=== PATIENT | male | born 1935 | race Caucasian/White ===

== ENCOUNTER 2018-05-13 13:15 | Inpatient (IN) | payer OTHER, SELFPAY ==
[2018-05-13] MEDS ORDERED: ONDANSETRON 4 MG/2 ML VIAL ONE (13:42)
[2018-05-13] MEDS ORDERED: NA CHLORIDE 0.9% 500 ML ONE (13:42)
[2018-05-13 13:45] LABS: Absolute Lymphocytes (CBC) 0.7 K/uL (0.7-4.9); Absolute Monocytes 1.6 K/uL (0.1-1.3); Absolute Neutrophil 13.5 K/uL (1.8-8.0); Basophils % 0.2 % (0-1.3); Hematocrit 43.9 % (39.6-49.0); Lymphocytes % 4.6 % (15.3-44.8); MCH 28.6 pg (27.0-35.0); MCV 86.2 fL (80-100); MPV 9.2 fL (7.6-11.3); Monocytes % 9.9 % (3.3-12.3); RBC Red Blood Cell Count 5.09 M/uL (4.33-5.43)
[2018-05-13 13:55] LABS: Potassium 4.4 mmol/L (3.5-5.1)
[2018-05-13 13:56] LABS: Albumin 3.1 g/dL (3.4-5.0); Bilirubin Direct 0.3 mg/dL (0-0.2); Bilirubin Total 0.9 mg/dL (0.2-1.0)
[2018-05-13 14:19] LABS: Blood Morphology Comment NOT SEEN (NOT SEEN); Platelet Estimate ADEQ; Urine White Blood Cell Casts OK
--- NOTE | 2018-05-13 15:48 | RAD REPORT ---
EXAM DESCRIPTION: CT - Abdomen Pelvis Wo Contrast - 05/13/2018 3:40 pm CLINICAL HISTORY: Abdominal pain. Abd pain;Abdominal distention COMPARISON: No comparisons TECHNIQUE: CT imaging of the abdomen and pelvis was performed without contrast. Solid organ, bowel a nd vascular assessment is limited due to lack of IV and oral contrast. All CT scans are performed using dose optimization technique as appropriate and may include automated exposure control or mA/KV adjustment according to patient size. FINDINGS: Emphysematous changes are present in the lung bases with linear atelectasis present.Small hiatal hernia is noted with gastroesophageal reflux suspected. The gallbladder appears distended with a stone noted in the gallbladder dependently and in the cystic duct.Mild pericholecystic inflammatory changes are noted. The liver, spleen, adrenal glands and kidn eys show no acute process for limited noncontrast imaging. Mild pancreatic atrophy. No bowel obstruction, free air, free fluid or abscess. Moderate fecal retention is seen in the right aspect of the colon. The appendix is normal. Scattered colonic diverticulosis. Fat containing inguina l hernias are present, greater on the right. Aortic atherosclerosis. The osseous structures are within normal limits. IMPRESSION: Acute cholecystitis is suspected. This may be confirmed utilizing gallbladder sonography . A limited non-contrast examination was performed as detailed.
[2018-05-13] MEDS ORDERED: MEPERIDINE HCL 25 MG/0.5 ML ONE ×2 (16:11→16:44)
[2018-05-13] MEDS ORDERED: CEFTRIAXONE/SWI 1gm 1 GM/10 ML SYR ONE (16:12)
[2018-05-13] MEDS ORDERED: D5 0.45 NS 1,000 ML IV ONE (16:12)
[2018-05-13] MEDS ORDERED: METRONIDAZOLE 500mg IVPB 500 MG/100 ML BAG IV ONE (16:12)
--- NOTE | 2018-05-13 16:25 | RAD REPORT ---
EXAM DESCRIPTION: US - Abdomen Exam Limited - 05/13/2018 4:18 pm CLINICAL HISTORY: Abdominal pain. COMPARISON: May 13, 2018 cat scan FINDINGS: The gallbladder is distended. Sludge and a couple of gallstones are seen. The gallbladder wall measures 6 millimeters The biliary tree is normal caliber. IMPRESSION: Cholelithiasis, sludge and thickened gallbladder wall. Cholecystitis is suspected.
--- NOTE | 2018-05-13 16:41 | EDPHYS ---
Physician Documentation [facility] Name: Brodie Escobar Age: 82 yrs Sex: Male : 1935 Arrival Date: 05/13/2018 Time: 13:16 Bed 8 Private MD: ED Physician Basilio Keith HPI: 05/13 13:46 This 82 yrs old Male presents to ER via EMS with complaints of abd pain. rn 13:46 The patient presents with abdominal pain abdominal distention. Onset: The rn symptoms/episode began/occurred 2 day(s) ago. The symptoms do not radiate. Associated signs and symptoms: Pertinent positives: constipation, nausea, Pertinent negatives: blood in stools, fever, shortness of breath, testicular pain, vomiting blood. The symptoms are described as achy. Modifying factors: The symptoms are alleviated by nothing, the symptoms are aggravated by touching the area. Severity of pain: At its worst the pain was moderate in the emergency department the pain is unchanged. The patient has not experienced similar symptoms in the past. Reports abd pain and distension for 2 days, assoc with constipation and nausea, reports feels like "stopped up from both ends". NO hx of abd surgeries. . Historical: - Allergies: 13:18 No Known Allergies; aa5 - Home Meds: 13:30 losartan 25 mg oral tab 1 tab once daily [Active]; metoprolol tartrate 25 mg Oral tab 2 aa5 times per day [Active]; omeprazole 20 mg Oral cpDR once daily [Active]; oxybutynin chloride 5 mg Oral tab 2 times per day for Bladder Hyperactivity [Active]; - PMHx: 13:18 Hypertension; acid reflux; aa5 13:30 Hyperlipidemia; Coronary arteriosclerosis; Chronic Kidney Disease Stage 3; GERD; aa5 Prostate problems; Overactive bladder; - PSHx: 13:18 left knee; "heart surgery"; aa5 13:30 Aortocoronary Bypass; aa5 - Immunization history:: Pneumococcal vaccine is up to date, Flu vaccine is up to date. - Social history:: Smoking status: Patient/guardian denies using tobacco. - Ebola Screening: : No symptoms or risks identified at this time. - Family history:: not pertinent. - Hospitalizations: : No recent hospitalization is reported. ROS: 13:46 Constitutional: Negative for fever, chills, and weight loss, Eyes: Negative for injury, rn pain, redness, and discharge, Neck: Negative for injury, pain, and swelling, Cardiovascular: Negative for chest pain, palpitations, and edema, Respiratory: Negative for shortness of breath, cough, wheezing, and pleuritic chest pain, Abdomen/GI: + abd pain and nausea, + constipation MS/Extremity: Negative for injury and deformity, Skin: Negative for injury, rash, and discoloration, Neuro: Negative for headache, weakness, numbness, tingling, and seizure. Exam: 13:46 Constitutional: This is a well developed, well nourished patient who is awake, alert rn Eyes: Pupils equal round and reactive to light, extra-ocular motions intact. ENT: dry mm Cardiovascular: Regular rate, no murmur, No pulse deficits. Respiratory: Lungs have equal breath sounds bilaterally, clear to auscultation. No increased work of breathing, no retractions or nasal flaring. Abdomen/GI: firm, + mild distension and abd tenderness MS/ Extremity: Pulses equal, no cyanosis. Neurovascular intact. Full, normal range of motion. Equal circumference. Neuro: Awake and alert, GCS 15, oriented to person, place, time, and situation. Cranial nerves II-XII grossly intact. Motor strength 5/5 in all extremities. Sensory grossly intact. Vital Signs: 13:18 BP 203 / 95; Pulse 86; Resp 16 S; Temp 97.8(O); Pulse Ox 99% on R/A; Weight 83.91 kg aa5 (R); Height 5 ft. 5 in. (165.10 cm) (R); Pain 10/10; 13:55 BP 184 / 101; Pulse 94; Resp 22; Pulse Ox 92% on R/A; aa5 13:57 Pulse Ox 98% on 2 lpm NC; aa5 14:25 BP 181 / 89; Pulse 88; Resp 18 S; Pulse Ox 98% on 2 lpm NC; aa5 15:00 BP 198 / 86; Pulse 92; Resp 18 S; Pulse Ox 98% on 2 lpm NC; aa5 15:45 BP 204 / 97; Pulse 91; Resp 16; Temp 98.0(TE); Pulse Ox 98% on 2 lpm NC; aa5 16:30 BP 191 / 102; Pulse 90; Resp 18 S; Pulse Ox 97% on 2 lpm NC; aa5 17:00 BP 196 / 102; Pulse 99; Resp 16 S; Pulse Ox 98% on 2 lpm NC; aa5 18:00 BP 197 / 106; Pulse 94; Resp 14 S; Temp 97.8(TE); Pulse Ox 98% on 2 lpm NC; aa5 19:00 BP 188 / 102; Pulse 86; Resp 16 S; Pulse Ox 97% on 2 lpm NC; Pain 0/10; aa5 20:00 BP 171 / 96; Pulse 83; Resp 18 S; Temp 98.3(O); Pulse Ox 98% on 2 lpm NC; cc3 13:18 Body Mass Index 30.79 (83.91 kg, 165.10 cm) aa5 14:25 Dr. Keith was notified that BP remains high, no further orders received. aa5 MDM: 13:16 Patient medically screened. rn 16:36 Differential diagnosis: bowel obstruction, cholecystitis, Cholelithiasis, gastritis, rn gastroesophageal reflux disease, non-specific abd pain, pancreatitis, Peptic Ulcer Disease. Data reviewed: vital signs, nurses notes, lab test result(s), radiologic studies, CT scan, ultrasound, and as a result, I will admit patient. Counseling: I had a detailed discussion with the patient and/or guardian regarding: the historical points, exam findings, and any diagnostic results supporting the discharge/admit diagnosis, lab results, radiology results, the need for further work-up and treatment in the hospital. Admission orders: after a detailed discussion of the patient's condition and case, the admit orders are written by me. ED course: Pt with acute cholecystitis, consulted with Dr. Coffman \\T\\ [id number], admitted to Dr. Mclean. Abx given, NPO, fluids, pain meds. . 05/13 13:17 Order name: Basic Metabolic Panel; Complete Time: 15:52 rn 05/13 13:17 Order name: CBC with Diff; Complete Time: 15:52 rn 05/13 13:17 Order name: Hepatic Function; Complete Time: 15:52 rn 05/13 13:17 Order name: Lipase; Complete Time: 15:52 rn 05/13 13:51 Order name: CBC Smear Scan; Complete Time: 15:52 EDMS 05/13 15:22 Order name: Abdomen ; Complete Time: 15:52 EDMS 05/13 15:53 Order name: US Abdomen Limited; Complete Time: 16:30 rn 05/13 13:17 Order name: IV Saline Lock; Complete Time: 13:41 rn 05/13 13:17 Order name: Labs collected and sent; Complete Time: 13:41 rn Administered Medications: 13:34 Drug: NS 0.9% 500 ml Route: IV; Rate: bolus; Site: right antecubital; aa5 14:15 Follow up: IV Status: Completed infusion aa5 13:34 Drug: Zofran 4 mg Route: IVP; Site: right antecubital; aa5 13:40 Follow up: Response: No adverse reaction aa5 13:36 Drug: Demerol 25 mg Route: IVP; Site: right antecubital; aa5 13:40 Follow up: Response: No adverse reaction aa5 16:09 Drug: Rocephin - (cefTRIAXone) 1 grams {Note: Given slow IVP per pharmacy protocol at aa5 this time. .} Route: IVPB; Infused Over: 30 mins; Site: right antecubital; 16:20 Follow up: Response: No adverse reaction aa5 16:09 Drug: Demerol 25 mg Route: IVP; Site: right antecubital; aa5 16:15 Follow up: Response: No adverse reaction aa5 16:32 Drug: Flagyl 500 mg Volume: 100 ml; Route: IVPB; Rate: 200 ml/hr; Infused Over: 30 aa5 mins; Site: right antecubital; 17:02 Follow up: Response: No adverse reaction; IV Status: Completed infusion aa5 16:32 Drug: D5-1/2 NS with KCl 20 mEq/L 1000 ml Route: IV; Rate: 100 ml/hr; Site: right aa5 antecubital; 16:34 Drug: Demerol 25 mg Route: IVP; Site: right antecubital; aa5 16:40 Follow up: Response: No adverse reaction aa5 16:34 Drug: Metoprolol TARTRATE (Lopressor) 50 mg Route: PO; aa5 17:00 Follow up: Response: No adverse reaction aa5 18:45 Drug: cloNIDine 0.2 mg Route: PO; aa5 20:00 Follow up: Response: No adverse reaction; Blood pressure is lowered cc3 Disposition: 05/13/18 16:40 Hospitalization ordered by Katheryn Mclean for Inpatient Admission. Preliminary diagnosis are Cholecystitis, Constipation, unspecified, Chronic kidney disease (CKD). - Bed requested for Telemetry/MedSurg (Inpatient). - Status is Inpatient Admission. aa1 - Condition is Stable. - Problem is new. - Symptoms have improved. UTI on Admission? No Signatures: Dispatcher [employer] EDFL Niurka Wilson RN RN aa1 Basilio Keith MD MD rn Calderon, Audri, RN RN aa5 Lamar Waters Liberty Mena cc3 Corrections: (The following items were deleted from the chart) 15:22 13:18 Abdomen Pelvis W Con+CT.RAD.BRZ ordered. EDFL EDFL 18:13 16:40 Hospitalization Ordered by Katheryn Mclean MD for Inpatient Admission. Preliminary gm diagnosis is Cholecystitis; Constipation, unspecified; Chronic kidney disease (CKD). Bed requested for Telemetry/MedSurg (Inpatient). Status is Inpatient Admission. Condition is Stable. Problem is new. Symptoms have improved. UTI on Admission? No. rn 20:54 18:13 05/13/2018 16:40 Hospitalization Ordered by Katheryn Mclean MD for Inpatient aa1 Admission. Preliminary diagnosis is Cholecystitis; Constipation, unspecified; Chronic kidney disease (CKD). Bed requested for Telemetry/MedSurg (Inpatient). Status is Inpatient Admission. Condition is Stable. Problem is new. Symptoms have improved. UTI on Admission? No. gm
--- NOTE | 2018-05-13 16:41 | ER ---
Nurse's Notes [facility] Name: Brodie Escobar Age: 82 yrs Sex: Male : 1935 Arrival Date: 05/13/2018 Time: 13:16 Bed 8 Private MD: Diagnosis: Cholecystitis;Constipation, unspecified;Chronic kidney disease (CKD) Presentation: 05/13 13:18 Transition of care: patient was not received from another setting of care. Onset of aa5 symptoms was April 2018. Risk Assessment: Do you want to hurt yourself or someone else? Patient reports no desire to harm self or others. Initial Sepsis Screen: Does the patient meet any 2 criteria? No. Patient's initial sepsis screen is negative. Does the patient have a suspected source of infection? No. Patient's initial sepsis screen is negative. Care prior to arrival: None. 13:18 Acuity: JENNIFER 3 aa5 13:18 Method Of Arrival: EMS: [facility] aa5 13:18 Presenting complaint: Patient states: generalized abd pain that began 2 days ago. Pt aa5 reports last normal BM was approximately 3-4 days ago, pt reports very small BM yesterday. Reports nausea, denies vomiting. Historical: - Allergies: 13:18 No Known Allergies; aa5 - Home Meds: 13:30 losartan 25 mg oral tab 1 tab once daily [Active]; metoprolol tartrate 25 mg Oral tab 2 aa5 times per day [Active]; omeprazole 20 mg Oral cpDR once daily [Active]; oxybutynin chloride 5 mg Oral tab 2 times per day for Bladder Hyperactivity [Active]; - PMHx: 13:18 Hypertension; acid reflux; aa5 13:30 Hyperlipidemia; Coronary arteriosclerosis; Chronic Kidney Disease Stage 3; GERD; aa5 Prostate problems; Overactive bladder; - PSHx: 13:18 left knee; "heart surgery"; aa5 13:30 Aortocoronary Bypass; aa5 - Immunization history:: Pneumococcal vaccine is up to date, Flu vaccine is up to date. - Social history:: Smoking status: Patient/guardian denies using tobacco. - Ebola Screening: : No symptoms or risks identified at this time. - Family history:: not pertinent. - Hospitalizations: : No recent hospitalization is reported. Screenin:20 Abuse screen: Denies threats or abuse. Nutritional screening: No deficits noted. aa5 Tuberculosis screening: No symptoms or risk factors identified. Fall Risk None identified. Assessment: 13:20 General: Appears uncomfortable, Behavior is calm, cooperative. Pain: Complains of pain aa5 in right upper quadrant, left upper quadrant, right lower quadrant and left lower quadrant Pain does not radiate. Pain currently is 10 out of 10 on a pain scale. Quality of pain is described as crampy, Pain began 2-3 days ago. Is continuous. Neuro: Level of Consciousness is awake, alert, obeys commands, Oriented to person, place, time, situation. Cardiovascular: Heart tones S1 S2 present Rhythm is regular. Respiratory: Airway is patent Respiratory effort is even, unlabored, Respiratory pattern is regular, symmetrical, Breath sounds are clear bilaterally. GI: Abdomen is round distended, Bowel sounds present X 4 quads. Abd is soft and non tender X 4 quads. Reports constipation, nausea, Patient currently denies vomiting. : No signs and/or symptoms were reported regarding the genitourinary system. EENT: No signs and/or symptoms were reported regarding the EENT system. Derm: Skin is pink, warm \\T\\ dry. Musculoskeletal: Range of motion: intact in all extremities. 14:00 Reassessment: Patient is alert, oriented x 3, equal unlabored respirations, skin aa5 warm/dry/pink. Patient states feeling better. Pt completed CT oral contrast, CT notified. . Pain: Pain currently is 7 out of 10 on a pain scale. 15:07 Reassessment: Patient and/or family updated on plan of care and expected duration. Pain aa5 level reassessed. Patient is alert, oriented x 3, equal unlabored respirations, skin warm/dry/pink. Provided urinal for pt. Pt sitting up in bed. Appears comfortable. Awaiting CT scan. . Pain: Pain currently is 6 out of 10 on a pain scale. 16:10 Reassessment: Patient is alert, oriented x 3, equal unlabored respirations, skin aa5 warm/dry/pink. US at bedside . 16:10 Pain: Pain currently is 10 out of 10 on a pain scale. aa5 16:33 Reassessment: Patient and/or family updated on plan of care and expected duration. Pain aa5 level reassessed. Patient is alert, oriented x 3, equal unlabored respirations, skin warm/dry/pink. Pt requesting more pain medication, Dr. Keith notified. . Pain: Pain currently is 9 out of 10 on a pain scale. 16:54 Reassessment: Patient is alert, oriented x 3, equal unlabored respirations, skin aa5 warm/dry/pink. Patient states feeling better. Pain: Pain currently is 6 out of 10 on a pain scale. 17:30 Reassessment: Pt resting in bed with eyes closed, respirations even and unlabored, skin aa5 is pink/warm/dry. . 18:11 Reassessment: Pt resting in bed with eyes closed, respirations even and unlabored, skin aa5 is pink/warm/dry. . 18:16 Reassessment: Dr. Coffman (sugeon) and Dr. Mclean (Hospitalist) at bedside . aa5 19:15 Reassessment: Patient appears in no apparent distress at this time. Patient and/or cc3 family updated on plan of care and expected duration. Pain level reassessed. Patient is alert, oriented x 3, equal unlabored respirations, skin warm/dry/pink. Received this male patient from morning shift BONNIE Jain as a case of abdominal pain for admission to room 223 after shift change. With IV cannula gauge 20 at the right ACV with ongoing KCl infusion at 100 mL/hr infusing well. 20:00 Reassessment: Patient appears in no apparent distress at this time. Patient and/or cc3 family updated on plan of care and expected duration. Pain level reassessed. Patient is alert, oriented x 3, equal unlabored respirations, skin warm/dry/pink. Report handed over to BONNIE Carson for continuity of care and management. 20:45 Reassessment: Patient left ER for admission vitally stable by wheelchair with relatives.cc3 Vital Signs: 13:18 BP 203 / 95; Pulse 86; Resp 16 S; Temp 97.8(O); Pulse Ox 99% on R/A; Weight 83.91 kg aa5 (R); Height 5 ft. 5 in. (165.10 cm) (R); Pain 10/10; 13:55 BP 184 / 101; Pulse 94; Resp 22; Pulse Ox 92% on R/A; aa5 13:57 Pulse Ox 98% on 2 lpm NC; aa5 14:25 BP 181 / 89; Pulse 88; Resp 18 S; Pulse Ox 98% on 2 lpm NC; aa5 15:00 BP 198 / 86; Pulse 92; Resp 18 S; Pulse Ox 98% on 2 lpm NC; aa5 15:45 BP 204 / 97; Pulse 91; Resp 16; Temp 98.0(TE); Pulse Ox 98% on 2 lpm NC; aa5 16:30 BP 191 / 102; Pulse 90; Resp 18 S; Pulse Ox 97% on 2 lpm NC; aa5 17:00 BP 196 / 102; Pulse 99; Resp 16 S; Pulse Ox 98% on 2 lpm NC; aa5 18:00 BP 197 / 106; Pulse 94; Resp 14 S; Temp 97.8(TE); Pulse Ox 98% on 2 lpm NC; aa5 19:00 BP 188 / 102; Pulse 86; Resp 16 S; Pulse Ox 97% on 2 lpm NC; Pain 0/10; aa5 20:00 BP 171 / 96; Pulse 83; Resp 18 S; Temp 98.3(O); Pulse Ox 98% on 2 lpm NC; cc3 13:18 Body Mass Index 30.79 (83.91 kg, 165.10 cm) aa5 14:25 Dr. Keith was notified that BP remains high, no further orders received. aa5 ED Course: 13:16 Patient arrived in ED. rn 13:16 Basilio Keith MD is Attending Physician. rn 13:18 Arm band placed on. aa5 13:18 Patient has correct armband on for positive identification. Placed in gown. Bed in low aa5 position. Call light in reach. Side rails up X2. 13:21 Susy Plaza, RN is Primary Nurse. aa5 13:30 Initial lab(s) drawn, by me, sent to lab. Inserted saline lock: 20 gauge in right aa5 antecubital area, using aseptic technique. Blood collected. 13:30 No provider procedures requiring assistance completed. aa5 13:45 Triage completed. aa5 15:40 Abdomen In Process Unspecified. EDMS 16:16 US Abdomen Limited In Process Unspecified. EDMS 16:16 Ultrasound completed. hr 16:40 Katheryn Mclean MD is Hospitalizing Provider. rn 16:59 Police called the [facility] at the request of the patient to eb please go by his house to notify the family that he was here and will be admitted. 19:10 Report given to Report given to BONNIE Sawant and BONNIE Koenig. aa5 20:00 Patient admitted, IV remains in place. cc3 Administered Medications: 13:34 Drug: NS 0.9% 500 ml Route: IV; Rate: bolus; Site: right antecubital; aa5 14:15 Follow up: IV Status: Completed infusion aa5 13:34 Drug: Zofran 4 mg Route: IVP; Site: right antecubital; aa5 13:40 Follow up: Response: No adverse reaction aa5 13:36 Drug: Demerol 25 mg Route: IVP; Site: right antecubital; aa5 13:40 Follow up: Response: No adverse reaction aa5 16:09 Drug: Rocephin - (cefTRIAXone) 1 grams {Note: Given slow IVP per pharmacy protocol at aa5 this time. .} Route: IVPB; Infused Over: 30 mins; Site: right antecubital; 16:20 Follow up: Response: No adverse reaction aa5 16:09 Drug: Demerol 25 mg Route: IVP; Site: right antecubital; aa5 16:15 Follow up: Response: No adverse reaction aa5 16:32 Drug: Flagyl 500 mg Volume: 100 ml; Route: IVPB; Rate: 200 ml/hr; Infused Over: 30 aa5 mins; Site: right antecubital; 17:02 Follow up: Response: No adverse reaction; IV Status: Completed infusion aa5 16:32 Drug: D5-1/2 NS with KCl 20 mEq/L 1000 ml Route: IV; Rate: 100 ml/hr; Site: right aa5 antecubital; 16:34 Drug: Demerol 25 mg Route: IVP; Site: right antecubital; aa5 16:40 Follow up: Response: No adverse reaction aa5 16:34 Drug: Metoprolol TARTRATE (Lopressor) 50 mg Route: PO; aa5 17:00 Follow up: Response: No adverse reaction aa5 18:45 Drug: cloNIDine 0.2 mg Route: PO; aa5 20:00 Follow up: Response: No adverse reaction; Blood pressure is lowered cc3 Outcome: 16:40 Decision to Hospitalize by Provider. rn 20:00 Admitted to Med/surg accompanied by nurse, family with patient, via wheelchair, room cc3 223, with oxygen, with chart, Report called to BONNIE Carson 20:00 Condition: stable 20:00 Instructed on the need for admit, Demonstrated understanding of instructions. 20:54 Patient left the ED. aa1 Signatures: Dispatcher [employer] EDMS Niurka Wilson RN RN aa1 Kaci Comer Roman, MD MD rn Calderon, Audri, RN RN aa5 Simona Bonilla Charlene cc3 Corrections: (The following items were deleted from the chart) 15:18 14:25 BP 181 / 89; Pulse 88bpm; Resp 18bpm; Spontaneous; Pulse Ox 98% 2 lpm Nasal aa5 Cannula; aa5
[2018-05-13] MEDS ORDERED: METOPROLOL TAR 50 MG TAB ONE (16:44)
[2018-05-13] MEDS ORDERED: cloNIDine HCl 0.1 MG TAB ONE (18:49)
--- NOTE | 2018-05-13 20:48 | P.HP ---
Certification for Inpatient Patient admitted to: Inpatient With expected LOS: >2 Midnights Practitioner: I am a practitioner with admitting privileges, knowledge of patient current condition, hospital course, and medical plan of care. Services: Services provided to patient in accordance with Admission requirements found in Title 42 Section 412.3 of the Code of Federal Regulations Patient History Date of Service: 05/13/18 Reason for admission: Acute cholecystitis History of Present Illness: Mr Escobar is a 82-year-old male with history of CAD status post CABG, hypertension, dyslipidemia, who start with right upper quadrant abdominal pain associated with nausea about 2 days ago. He noticed also abdominal distention. He denied any vomiting, or diarrhea. He also denied fever or chills. Laboratory work remarkable for leukocytosis, elevated creatinine, mildly elevated alkaline phosphatase. CT abdomen and pelvis remarkable for acute cholecystitis, subsequent abdominal ultrasound confirmed acute cholecystitis and also reports sludge. He denied any chest pain or shortness of breath. Allergies No Known Allergies Allergy (Unverified 05/13/18 19:41) Home medications list reviewed: Yes - Past Medical/Surgical History -: Hyperlipidemia -: CAD -: Chronic kidney disease stage 3 -: GERD -: CABG -: Left knee - Family History Family History: Reviewed- Non-Contributory - Social History Smoking Status: Never smoker Alcohol use: Yes CD- Drugs: No Place of Residence: Home Review of Systems 10-point ROS is otherwise unremarkable Physical Examination - Physical Exam General: Alert, In no apparent distress HEENT: Atraumatic, PERRLA, Mucous membr. moist/pink, EOMI, Sclerae nonicteric Neck: Supple, 2+ carotid pulse no bruit, No LAD, Without JVD or thyroid abnormality Respiratory: Clear to auscultation bilaterally, Normal air movement Cardiovascular: Regular rate/rhythm, Normal S1 S2 Gastrointestinal: Hypoactive, Distended, Tenderness (Right upper quadrant) Musculoskeletal: No tenderness Integumentary: No rashes Neurological: Normal speech, Normal strength at 5/5 x4 extr, Normal tone, Normal affect Lymphatics: No axilla or inguinal lymphadenopathy - Studies Laboratory Data (last 24 hrs) 05/13/18 13:30: WBC 15.9 H, Hgb 14.6, Hct 43.9, Plt Count 253 05/13/18 13:30: Sodium 138, Potassium 4.4, BUN 22 H, Creatinine 2.00 H, Glucose 162 H, Total Bilirubin 0.9, AST 22, ALT 19, Alkaline Phosphatase 124 H, Lipase 56 L Assessment and Plan - Problems (Diagnosis) (1) Acute cholecystitis Current Visit: Yes Status: Acute (2) CAD (coronary artery disease) Current Visit: Yes Status: Acute Qualifiers: Coronary Disease-Associated Artery/Lesion type: bypass graft, autologous vein Associated angina: without angina Qualified Code(s): I25.810 - Atherosclerosis of coronary artery bypass graft(s) without angina pectoris (3) Dyslipidemia Current Visit: Yes Status: Acute (4) Hypertension Current Visit: Yes Status: Acute Qualifiers: Hypertension type: essential hypertension Qualified Code(s): I10 - Essential (primary) hypertension - Plan The patient will be admitted to the hospital due to acute cholecystitis. He has a stable hemodynamically. Will continue with IV fluids, empiric antibiotic treatment, symptomatic medication for pain and nausea. Keep NPO, consult surgery team and cardiology team for surgery calderon. - Advance Directives Does patient have a Living Will: No Does patient have a Durable POA for Healthcare: No - Code Status/Comfort Care Code Status Assessed: Yes Code Status: Full Code
[2018-05-13] MEDS ORDERED: ACETAMINOPHEN 500 MG TAB PO PRN (21:29)
[2018-05-13] MEDS ORDERED: ONDANSETRON 4 MG/2 ML VIAL IV PRN (21:29)
[2018-05-13] MEDS: NA CHLORIDE 0.9% 1,000 ML IV SCH (22:08)
[2018-05-13] MEDS: Ciprofloxacin 200mg IV 200 MG/100 ML IV.SOLN. IV SCH (22:09)
--- NOTE | 2018-05-14 00:16 | CON ---
Date of Consultation: 05/13/2018 Diagnosis: Acute cholecystitis, symptomatic cholelithiasis. History Of Present Illness: This is the case of an 82-year-old patient, comes to us with abdominal p ain epigastric right upper quadrant areas associated with nausea starting to about 2 days ago. He sa ys now the pain for 2 days with some nausea. Tonight he noticed it was not stopping, so he decided t o come to the ER through ambulance. He denies any dysuria, hematuria, hematochezia, or melena. Oren es any recent travelling out of the country. Denies any family member sick at home. He does not rem ember any previous colonoscopy, although he was advised to do so. Past Medical History: Hypertension, cardiac disease, chronic kidney disease, overactive bladder. Allergies: NONE. Medications: Reviewed including metoprolol, losartan. Past Surgical History: Include knee surgery, cardiac bypass. Review of Systems: Ten points, otherwise unremarkable. Physical Examination: General: The patient is awake and alert. HEENT: Pupils are equal and reactive, anicteric. Neck: Supple. Chest: Clear. Abdomen: Epigastric right upper quadrant pain with Alanis sign positive. The rest of the abdomen is soft and depressible. Softly distended. Pelvic: Deferred. Rectal: Deferred. Extremities: Good capillary refill. Imaging: Abdominal ultrasound interpreted by Dr. Dumont has cholelithiasis sludge and thickening g allbladder wall. Cholecystitis is suspected. CAT scan of the abdomen and pelvis interpreted by Dr. Tim shows acute cholecystitis. Some emphysema in the lungs present. The patient had fat-containin g inguinal hernias. Laboratory Data: Blood work shows WBC count of 15.9 with platelets of 253, potassium 4.4, glucose 16 2, alkaline phosphate 124. Lipase 56. Assessment: This is an 82-year-old patient with multiple medical problems, also acute cholecystitis, symptomatic cholelithiasis. The patient also have bilateral inguinal hernias. From the gallbladder standpoint, we will have to see if we have cardiac clearance for laparoscopic possible open cholecys tectomy with benefits, alternatives, and risks explained to the patient, include but not limited to i nfection, bleeding, damage to adjacent structures, anesthesia complication, choledocholithiasis, bile leak, pancreatitis, HI, and even . He also understands this may not relieve the symptoms. He might need more than one surgical intervention. He understands for the hernias. He was advised to c ome electively to our office and have elective surgery of those hernias done and repair. Regarding h is emphysema, he was advised to followup with his primary doctor and colonoscopy followup with his ga stroenterologist. ZIA/NICK Voice ID: [id number] Report ID: [id number]
[2018-05-14] MEDS: METRONIDAZOLE 500mg IVPB 500 MG/100 ML BAG IV SCH ×4 (00:42→18:18)
[2018-05-14] MEDS: MORPHINE 2 MG/ML SYR IV PRN ×5 (00:42→20:27)
[2018-05-14 06:21] LABS: Absolute Lymphocytes (CBC) 1.1 K/uL (0.7-4.9); Absolute Monocytes 2.3 K/uL (0.1-1.3); Absolute Neutrophil 12.6 K/uL (1.8-8.0); Basophils % 0.2 % (0-1.3); Eosinophils % 0.1 % (0-4.4); Hematocrit 40.4 % (39.6-49.0); Lymphocytes % 6.6 % (15.3-44.8); MCH 28.9 pg (27.0-35.0); MCV 85.8 fL (80-100); MPV 9.6 fL (7.6-11.3); Monocytes % 14.3 % (3.3-12.3); RBC Red Blood Cell Count 4.71 M/uL (4.33-5.43)
[2018-05-14 06:27] LABS: Urine Appearance CLOUDY; Urine Blood 1+ (NEG); Urine Color DK YELLOW; Urine Glucose 1+ (NEG); Urine Protein 2+ (NEG); Urine Specific Gravity 1.025 (1.005-1.030); Urine pH 5.5 (5.0-7.0)
[2018-05-14 06:30] LABS: Urine Bilirubin 1+ (NEG); Urine Microscopic Reflex ORDER UMIC
[2018-05-14 06:39] LABS: Urine Bacteria >50 /HPF (NONE SEEN); Urine Culture Reflex Order REFLEXED; Urine RBC <5 /HPF (NONE SEEN)
[2018-05-14 06:54] LABS: Albumin 2.4 g/dL (3.4-5.0); Bilirubin Total 1.1 mg/dL (0.2-1.0); Potassium 4.5 mmol/L (3.5-5.1); Protein, Total 6.4 g/dL (6.4-8.2)
[2018-05-14] MEDS: NA CHLORIDE 0.9% 1,000 ML IV SCH ×4 (09:07→20:34)
[2018-05-14] MEDS ORDERED: HYDROMORPHONE HCL 1 MG/ML INJ IV ONE (11:40)
[2018-05-14] MEDS ORDERED: hydrOXYzine HCl 25 MG TAB PO PRN (12:18)
--- NOTE | 2018-05-14 12:58 | EKG ---
Test Date: 2018-05-14 Test Time: 09:43:32 Official Greeter: IRLANDA MEASUREMENT RESULTS: Intervals: Rate: 82 [place]: 164 QRSD: 96 QT: 396 QTc: 462 [place]: P: 58 [place]: 164 QRS: 11 T: 131 INTERPRETIVE STATEMENTS: Sinus rhythm with premature supraventricular complexes Inferior infarct, age undetermined ST & T wave abnormality, consider lateral ischemia Abnormal ECG No previous ECG available for comparison Electronically Signed On 05-14-18 12:57:44 VENEER PULLER by Johny Serrano
[2018-05-14] MEDS ORDERED: PROPOFOL 200 MG/20 ML VIAL IV ONE (12:59)
[2018-05-14] MEDS ORDERED: LIDOCAINE 1% MPF 5 ML VIAL ONE (12:59)
[2018-05-14] MEDS ORDERED: ROCURONIUM 50 MG/5 ML VIAL IV ONE (12:59)
[2018-05-14] MEDS ORDERED: FENTANYL CITR 100 MCG/2 ML ONE ×2 (12:59→13:53)
[2018-05-14] MEDS ORDERED: EPHEDRINE SULF 50 MG/10 ML SYR ONE (13:27)
[2018-05-14] MEDS ORDERED: GLYCOPYRROLATE 0.2 MG/ML SYR ONE (13:33)
[2018-05-14] MEDS ORDERED: NEOSTIGMINE 1 MG/ML -5 ML SYRINGE ONE (13:33)
[2018-05-14] MEDS ORDERED: NS 0.9% VIAL 20 ML ONE (13:34)
[2018-05-14] MEDS ORDERED: Phenylephrine HCl 10 MG/ML 1 ML VIAL ONE (13:34)
[2018-05-14] MEDS ORDERED: ONDANSETRON HCL 40 MG/20 ML VIAL ONE (13:36)
[2018-05-14] MEDS ORDERED: SUCCINYLCHOLINE 20 MG/ML (10 ML) IV ONE (13:41)
[2018-05-14] MEDS ORDERED: LABETALOL 20 MG/4ML SYRINGE IV ONE (13:56)
--- NOTE | 2018-05-14 14:07 | CON ---
Additional Attending Physician: Dr. Coffman. Chief Complaint: Abdominal pain. Reason For Consult: Preoperative clearance for a semi-emergent gallbladder surgery. History Of Present Illness: Mr. Escobar came to the hospital quickly after having his symptoms, and since then, he has been found to have acute cholecystitis. There was pain, constipation. Mr. Cedrick blum has heart disease. He had bypass surgery about 7 years ago done at the [facility] in [place]. Si nce then, he has done well without any further interventions. Does not have heart failure or a defib rillator or a pacemaker or any repeat stents. Medications: Outpatient medications have been Ditropan, omeprazole, metoprolol, losartan, hydroxyzin e, mineral oil, hydrocodone, omega-3 fatty acids, cyanocobalamin, cholecalciferol, Lipitor 40, triamc inolone. Allergies: HE HAS NO KNOWN ALLERGIES. Social History: He does not use tobacco. Physical Examination: General: He appears to be his stated age. Alert, oriented, pleasant. Abdomen: He does have some abdominal pain, especially if he pushes on the area. I did not actually palpate his abdomen with any deep palpation. Lungs: Clear. Heart: Irregularly irregular. No murmur or gallop. 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 No injury or ischemia. Recommendations: The patient denies having chest pain. I think he is a low-risk patient for having gallbladder surgery. SAMY/NICK Voice ID: [id number] Report ID: [id number]
[2018-05-14] MEDS ORDERED: Ringers Lactate 1,000 ML IV ONE (14:26)
--- NOTE | 2018-05-14 14:43 | P.BOP ---
Preoperative diagnosis: acute cholecystitis, symptomatic cholelithiasis Postoperative diagnosis: acute gangrenous cholecystitis, symptomatic cholelithiasis Primary procedure: Laparoscopic cholecystectomy Stoker Installer: JULIANO ABREU (WALL ATTENDANT) Estimated blood loss: <50cc Specimen: gb Findings: gangreous changes gallbladder wall Anesthesia: General Complications: None Drain(s): CELESTE drain Transferred to: Recovery Room Condition: Good
[2018-05-14] MEDS: MEPERIDINE HCL 25 MG/0.5 ML ONE ×2 (14:55→15:03)
[2018-05-14] MEDS ORDERED: MEPERIDINE HCL 25 MG/0.5 ML ONE (15:02)
--- NOTE | 2018-05-14 15:09 | P.PN ---
Subjective Date of Service: 05/14/18 Chief Complaint: Acute cholecystitis Pt seen and examined at bedside with RN today. Case discussed with general surgery. Currently patient complaining of having severe abdominal pain. In the right upper quadrant area. Received morphine and around 9:00 a.m. however pain still uncontrolled. Dilaudid x1 given. Patient currently is awaiting OR procedure. Review of Systems 10-point ROS is otherwise unremarkable Physical Examination - Vital Signs Temperature: 97.1 F Blood Pressure: 126/59 Pulse: 96 Respirations: 16 Pulse Ox (%): 94 - Physical Exam General: Alert, Mild distress HEENT: Atraumatic, PERRLA, EOMI Neck: Supple, JVD not distended Respiratory: Clear to auscultation bilaterally, Normal air movement Cardiovascular: Regular rate/rhythm, Normal S1 S2 Gastrointestinal: Normal bowel sounds, Distended, Tenderness (RUQ pain) Musculoskeletal: No tenderness Integumentary: No rashes Neurological: Normal speech, Normal tone, Normal affect Lymphatics: No axilla or inguinal lymphadenopathy - Studies Medications List Reviewed: Yes Assessment And Plan - Current Problems (Diagnosis) (1) Acute cholecystitis Onset Date: 05/14/18 Current Visit: Yes Status: Acute Plan: Acute Cholecysitis on the ABD CT and US -Gen Surgery consulted. Appreciate reccs -OR today -IV Fluids and Cipro/flagyl -Will F.u with pt post procedure (2) CAD (coronary artery disease) Onset Date: 05/14/18 Current Visit: Yes Status: Chronic Qualifiers: Coronary Disease-Associated Artery/Lesion type: bypass graft, autologous vein Associated angina: without angina Qualified Code(s): I25.810 - Atherosclerosis of coronary artery bypass graft(s) without angina pectoris (3) Dyslipidemia Onset Date: 05/14/18 Current Visit: Yes Status: Chronic (4) Hypertension Onset Date: 05/14/18 Current Visit: Yes Status: Chronic Qualifiers: Hypertension type: essential hypertension Qualified Code(s): I10 - Essential (primary) hypertension Discharge Plan: Home Plan to discharge in: 24 Hours - Code Status/Comfort Care Code Status Assessed: Yes Critical Care: No
[2018-05-14] MEDS: ATORVASTATIN 40 MG TAB PO SCH (20:35)
[2018-05-14] MEDS: METOPROLOL TAR 25 MG TAB PO SCH (20:35)
[2018-05-14] MEDS: Ciprofloxacin 200mg IV 200 MG/100 ML IV.SOLN. IV SCH (22:20)
[2018-05-15] MEDS: METRONIDAZOLE 500mg IVPB 500 MG/100 ML BAG IV SCH ×2 (00:06→06:24)
[2018-05-15] MEDS: MORPHINE 2 MG/ML SYR IV PRN (00:06)
--- NOTE | 2018-05-15 02:15 | OP ---
Date of Procedure: 05/14/2018 Surgeon: Brett Coffman MD Photogrammetric Engineer: Nyla Diego. Diagnoses: Acute gangrenous cholecystitis, symptomatic cholelithiasis, heart disease, chronic kidney disease. Procedure: Laparoscopic cholecystectomy. Estimated Blood Loss: Less than 50 cc. Specimen: Gallbladder. Findings: Gangrenous changes of the gallbladder wall, multiple areas; acute cholecystitis. Anesthesia: General plus local. Drain: CELESTE #10. Indications: This is the case of an 82-year-old patient who comes to us with right upper quadrant pa in in the last few hours. The patient states it has been little like that for the last 2 days. This morning, we obtained a cardiac clearance on him and we proceeded to book him for laparoscopic possib le open cholecystectomy with benefits, alternatives, and risks fully explained to him and the family which include but not limited to infection, bleeding, damage to adjacent structures, anesthesia compl ication, choledocholithiasis, bile leak, pancreatitis, GA, and even . He also understands this may not relieve any symptoms and he might need more than one surgical intervention. He understood, s igned a consent. Description Of Procedure: The patient was brought to the operating room, placed in supine position. Anesthesia was done without any complication. Abdominal area was prepped and draped in a sterile fa shion. Marcaine 0.5% injected for local anesthetic, followed by sharp incision of the skin in the in fraumbilical region. Incision was carried down to the fascia which was opened under direct vision. Peritoneum was encountered, opened under direct vision. Vicryl #1 was placed inside the fascia. Has son trocar was carefully introduced. No bleeding was obtained. I placed 3 more trocars in the right upper quadrant under direct visualization. The gallbladder has omentum covering that area. When we removed that omentum, patient had multiple patches of gangrenous changes on the gallbladder itself. It also looked distended. So, we put an Endo needle to be able to handle this gallbladder. We had to deflate that a little bit so we have an Endo needle. Then, after that, we removed the needle and put a grasper over the puncture site. We retracted the gallbladder in the inferolateral fashion expo sing the triangle of Calot obtaining the critical view of safety. We noticed the cystic duct is spar ed from the gangrene, so we proceeded to identify the cystic duct circumferentially, and a connection between those and the gallbladder were clearly identified. The same was done with the cystic artery . We made sure that hepatic arteries and common bile duct were protected at all times. At that mome nt, I proceeded to ligate that by using 3 clips proximal, 1 clip distal, ligation in middle. Same wa s done with the cystic artery. A small tiny branch of the cystic artery was also ligated. Hepatic a rtery once again right and left and common bile duct were protected at all times. We have to go slow during this procedure due to gallbladder swelling and because the gallbladder was friable, but we we re able to remove the gallbladder from the liver using Bovie cauterizer and remove it from abdominal cavity using an EndoCatch through the umbilical incision. The umbilical incision have to be opened a little bit more to allow this gallbladder to come out. No bleeding was obtained. I checked the gal lbladder fossa with no bleeding and the clips on the cystic duct with no bleeding and no bile leak. I left a CELESTE drain #10 exiting to one of the trocar sites in the area of the right upper quadrant; thi s is after irrigation. Once again, clips look intact. No bleeding. No bile leak. At that moment, I proceeded to remove the trocars under direct vision. Deflated pneumoperitoneum. Closed the fashio n with #1 Vicryl, irrigated subcutaneous tissues, closed that with 3-0 chromic and skin with dot. CELESTE drain was connected to bulb suction and secured in place with 3-0 nylon. ZIA/NICK Voice ID: [id number] Report ID: [id number]
[2018-05-15 04:52] LABS: Absolute Lymphocytes (CBC) 0.9 K/uL (0.7-4.9); Absolute Monocytes 1.6 K/uL (0.1-1.3); Absolute Neutrophil 8.9 K/uL (1.8-8.0); Basophils % 0.2 % (0-1.3); Eosinophils % 0.5 % (0-4.4); Hematocrit 37.2 % (39.6-49.0); Lymphocytes % 7.6 % (15.3-44.8); MCH 29.1 pg (27.0-35.0); MCV 87.6 fL (80-100); MPV 9.4 fL (7.6-11.3); Monocytes % 14.2 % (3.3-12.3); RBC Red Blood Cell Count 4.25 M/uL (4.33-5.43)
[2018-05-15 05:17] LABS: Albumin 2.3 g/dL (3.4-5.0); Bilirubin Total 0.9 mg/dL (0.2-1.0); Potassium 4.5 mmol/L (3.5-5.1); Protein, Total 6.2 g/dL (6.4-8.2)
[2018-05-15] MEDS: PANTOPRAZOLE 40MG TABLET PO SCH (06:24)
[2018-05-15] MEDS: LOSARTAN POTASSIUM 50 MG TABLET PO SCH (10:10)
[2018-05-15] MEDS: CYANOCOBALAMIN 1,000 MCG TAB PO SCH (10:10)
[2018-05-15] MEDS: VITAMIN D 400 UNIT TAB PO SCH (10:11)
[2018-05-15] MEDS: METOPROLOL TAR 25 MG TAB PO SCH ×2 (10:12→21:52)
--- NOTE | 2018-05-15 11:12 | P.PN ---
Subjective Date of Service: 05/15/18 Chief Complaint: Acute cholecystitis Pt seen and examined at bedside with RN today. Case discussed with general surgery. S/P Lap Kenny. C/o of Abdominal Discomfort. CELESTE drain in place. Draining Serasanginous Fluids. Review of Systems 10-point ROS is otherwise unremarkable Physical Examination - Vital Signs Temperature: 98.1 F Blood Pressure: 120/63 Pulse: 94 Respirations: 18 Pulse Ox (%): 93 - Physical Exam General: Alert, In no apparent distress HEENT: Atraumatic, PERRLA, EOMI Neck: Supple, JVD not distended Respiratory: Clear to auscultation bilaterally, Normal air movement Cardiovascular: Regular rate/rhythm, Normal S1 S2 Gastrointestinal: Normal bowel sounds, Tenderness Musculoskeletal: No tenderness Integumentary: No rashes Neurological: Normal speech, Normal tone, Normal affect Lymphatics: No axilla or inguinal lymphadenopathy - Studies Medications List Reviewed: Yes Assessment And Plan - Current Problems (Diagnosis) (1) Acute cholecystitis Onset Date: 05/14/18 Current Visit: Yes Status: Acute Plan: Acute Cholecysitis on the ABD CT and US -Gen Surgery consulted. Appreciate reccs -S/p LAp Kenny POD # 1 -Gangrenous Gallbladder with Peritonitis -IV Fluids and Cipro/flagyl -Monitor Closely -Sips of Clear today (2) CAD (coronary artery disease) Onset Date: 05/14/18 Current Visit: Yes Status: Chronic Qualifiers: Coronary Disease-Associated Artery/Lesion type: bypass graft, autologous vein Associated angina: without angina Qualified Code(s): I25.810 - Atherosclerosis of coronary artery bypass graft(s) without angina pectoris (3) Dyslipidemia Onset Date: 05/14/18 Current Visit: Yes Status: Chronic (4) Hypertension Onset Date: 05/14/18 Current Visit: Yes Status: Chronic Qualifiers: Hypertension type: essential hypertension Qualified Code(s): I10 - Essential (primary) hypertension Discharge Plan: Home Plan to discharge in: Greater than 2 days - Code Status/Comfort Care Code Status Assessed: Yes Critical Care: No
[2018-05-15] MEDS: PIPER/TAZO/NS 3.375gm 3.375 GM/100 ML BAG IVPB SCH ×2 (12:36→18:33)
[2018-05-15] MEDS: NA CHLORIDE 0.9% 1,000 ML IV SCH ×2 (13:29→21:52)
[2018-05-15] MEDS: HYDROCODONE/APAP 7.5/325 MG TAB PO PRN (13:35)
--- NOTE | 2018-05-15 14:12 | PN ---
Mr. Escobar had his gallbladder removed yesterday. It was large, almost 100% gangrene. He is in the hospital, still uncomfortable, no doubt because of how severe his cholecystitis was. Will continue to monitor and he seems to be doing well and his heart did not have any complications during the surg juan. SAMY/NICK Voice ID: [id number] Report ID: [id number]
[2018-05-15] MEDS: ATORVASTATIN 40 MG TAB PO SCH (21:51)
[2018-05-16] MEDS: PIPER/TAZO/NS 3.375gm 3.375 GM/100 ML BAG IVPB SCH ×3 (03:56→18:22)
[2018-05-16 04:37] LABS: Absolute Lymphocytes (CBC) 0.8 K/uL (0.7-4.9); Absolute Neutrophil 6.9 K/uL (1.8-8.0); Basophils % 0.5 % (0-1.3); Eosinophils % 6.3 % (0-4.4); Hematocrit 35.1 % (39.6-49.0); Lymphocytes % 8.8 % (15.3-44.8); MCH 29.3 pg (27.0-35.0); MCV 87.2 fL (80-100); MPV 8.7 fL (7.6-11.3); Monocytes % 10.7 % (3.3-12.3); RBC Red Blood Cell Count 4.02 M/uL (4.33-5.43)
[2018-05-16 04:43] LABS: Albumin 2.1 g/dL (3.4-5.0); Bilirubin Total 0.9 mg/dL (0.2-1.0); Phosphorus 1.9 mg/dL (2.5-4.9); Potassium 5.1 mmol/L (3.5-5.1); Protein, Total 5.9 g/dL (6.4-8.2)
[2018-05-16] MEDS ORDERED: POTASS/SODIUM PHOSPHATE 1 PKT POWD.PACK PO ONE (05:00)
[2018-05-16] MEDS: PANTOPRAZOLE 40MG TABLET PO SCH (05:31)
[2018-05-16] MEDS: CYANOCOBALAMIN 1,000 MCG TAB PO SCH (08:44)
[2018-05-16] MEDS: VITAMIN D 400 UNIT TAB PO SCH (08:44)
[2018-05-16] MEDS: METOPROLOL TAR 25 MG TAB PO SCH ×2 (08:44→20:50)
[2018-05-16] MEDS: LOSARTAN POTASSIUM 50 MG TABLET PO SCH (08:44)
[2018-05-16] MEDS: NA CHLORIDE 0.9% 1,000 ML IV SCH ×3 (09:29→20:50)
--- NOTE | 2018-05-16 14:28 | P.PN ---
Subjective Date of Service: 05/16/18 Chief Complaint: Acute cholecystitis Pt seen and examined at bedside with RN today. Case discussed with general surgery. S/P Lap Kenny. C/o of Abdominal Discomfort. CELESTE drain in place. Draining Serasanginous Fluids. Review of Systems 10-point ROS is otherwise unremarkable Physical Examination - Vital Signs Temperature: 97.4 F Blood Pressure: 111/60 Pulse: 73 Respirations: 20 Pulse Ox (%): 94 - Physical Exam General: Alert, In no apparent distress HEENT: Atraumatic, PERRLA, EOMI Neck: Supple, JVD not distended Respiratory: Clear to auscultation bilaterally, Normal air movement Cardiovascular: Regular rate/rhythm, Normal S1 S2 Gastrointestinal: Normal bowel sounds, Tenderness Musculoskeletal: No tenderness Integumentary: No rashes Neurological: Normal speech, Normal tone, Normal affect Lymphatics: No axilla or inguinal lymphadenopathy - Studies Medications List Reviewed: Yes Assessment And Plan - Current Problems (Diagnosis) (1) Acute cholecystitis Onset Date: 05/14/18 Current Visit: Yes Status: Acute Plan: Acute Cholecysitis on the ABD CT and US -Gen Surgery consulted. Appreciate reccs -S/p LAp Kenny POD # 2 -Gangrenous Gallbladder with Peritonitis -IV Fluids and Cipro/flagyl -Monitor Closely -Sips of Clear today (2) CAD (coronary artery disease) Onset Date: 05/14/18 Current Visit: Yes Status: Chronic Qualifiers: Coronary Disease-Associated Artery/Lesion type: bypass graft, autologous vein Associated angina: without angina Qualified Code(s): I25.810 - Atherosclerosis of coronary artery bypass graft(s) without angina pectoris (3) Dyslipidemia Onset Date: 05/14/18 Current Visit: Yes Status: Chronic (4) Hypertension Onset Date: 05/14/18 Current Visit: Yes Status: Chronic Qualifiers: Hypertension type: essential hypertension Qualified Code(s): I10 - Essential (primary) hypertension Discharge Plan: Home Plan to discharge in: 48 Hours - Code Status/Comfort Care Code Status Assessed: Yes Critical Care: No
[2018-05-16] MEDS: MORPHINE 2 MG/ML SYR IV PRN (17:16)
[2018-05-16] MEDS: ATORVASTATIN 40 MG TAB PO SCH (20:50)
[2018-05-16] MEDS: HYDROCODONE/APAP 7.5/325 MG TAB PO PRN (22:38)
--- NOTE | 2018-05-16 23:37 | PN ---
Date of Progress Note: 05/16/2018 This patient has a gangrenous gallbladder with acute cholecystitis, symptomatic cholelithiasis, and p eritonitis. The patient underwent laparoscopic cholecystectomy. The patient has been feeling better . Ambulating. No shortness of breath. Barely required any pain medication. Afebrile. Review of Systems: Ten points, otherwise unremarkable. Physical Examination: General: The patient is awake and alert. No distress. HEENT: Pupils are equal and reactive, anicteric. Neck: Supple. Chest: Clear. Abdomen: Soft and depressible. The patient has a CELESTE drain on the right side. It was left there due to the severe inflammation in that region. He still has some serosanguineous fluid. I do not see a ny gross bile, but there is some darkness on it. No pus. Pelvis is stable. Extremities: Good capillary refill. Laboratory Data: Blood work shows WBC count of 9.4 with hemoglobin 11.8 and platelets of 245. Chemi stry shows a total bilirubin of 0.9. AST of 48, alkaline phosphate 105. Assessment And Plan: An 82-year-old patient with history of severe cholecystitis. The patient was s everal days at home. He said he has high threshold for pain and he just waited. When we saw him aft er we got medical clearance, immediately we took him to surgery, found gangrenous gallbladder. This was done uneventfully. CELESTE drain was in that area due to the large amount of disease the patient has in that region and surrounding areas, even the anterior peritoneum that was in contact with the gangr ema, you see the black on it during inspection. CELESTE drain was in that area. The patient feels great. He is tolerating liquid diet and he has no pain. Barely asked for any pain medication. No fever. Blood work, LFTs coming down to normal but I still believe a HIDA scan should be done. This area wa s diseased, although the area of the clips was not. In an area that is gangrenous, still he has enou gh disease in that area, to warrant evaluation. HIDA scan is not available today, but I am going to do a HIDA scan tomorrow morning. If I see that the HIDA scan shows no leakage anywhere and the clips are intact, then the patient will advance diet and eventually go home. If we see the HIDA scan show s anything in that area that is suspicious for any leak or any stone in the common bile duct, then we will proceed to do ask for ERCP. The patient understands the plan. He feels great. Still I believ e before we move forward, we have to make sure that things in order. This patient was emergently don e with all this active inflammatory and ischemic disease and I have to make sure he is stable enough before he goes home. He fully understands and he did agree with the plan. CHRISTIANO Voice ID: [id number] Report ID: [id number]
[2018-05-17] MEDS: PIPER/TAZO/NS 3.375gm 3.375 GM/100 ML BAG IVPB SCH ×3 (04:09→18:49)
[2018-05-17] MEDS: PANTOPRAZOLE 40MG TABLET PO SCH (05:19)
[2018-05-17] MEDS: NA CHLORIDE 0.9% 1,000 ML IV SCH ×2 (05:29→15:29)
--- NOTE | 2018-05-17 08:38 | RAD REPORT ---
EXAM DESCRIPTION: NM - Hepatobiliary System Imagin - 05/17/2018 7:19 am CLINICAL HISTORY: gangrenous emergent cholecystectomy, r/o leak COMPARISON: No comparisons TECHNIQUE: The patient was administered 6.5 mCi Tc99m Choletec. Imaging of the right upper quadrant was performed initially for up to 60 minutes. FINDINGS: Normal hepatic uptake and excretion with appropriate clearance of background blood pool ac tivity. Normal visualization of biliary and small bowel activity. Mild radiotracer reflux into the stomach seen. No evidence of bile leak. IMPRESSION: Negative for bile leak.
[2018-05-17] MEDS: VITAMIN D 400 UNIT TAB PO SCH ×2 (09:00→10:23)
[2018-05-17] MEDS: LOSARTAN POTASSIUM 50 MG TABLET PO SCH ×2 (09:00→10:23)
[2018-05-17] MEDS: CYANOCOBALAMIN 1,000 MCG TAB PO SCH ×2 (09:00→10:23)
[2018-05-17] MEDS: METOPROLOL TAR 25 MG TAB PO SCH ×3 (09:00→21:46)
--- NOTE | 2018-05-17 09:53 | P.PN ---
Subjective Date of Service: 05/15/18 Chief Complaint: gangrenous cholecystitis, Subjective: Ambulating, Improving Review of Systems General: Unremarkable Eyes: Unremarkable ENT: Unremarkable Respiratory: Unremarkable Gastrointestinal: Nausea (no), Vomiting (no) Genitourinary: As per HPI Physical Examination - Vital Signs Temperature: 96.8 F Blood Pressure: 130/57 Pulse: 84 Respirations: 18 Pulse Ox (%): 95 - Physical Exam General: Alert, In no apparent distress, Oriented x3 Neck: Supple Respiratory: Normal air movement Cardiovascular: Normal pulses Gastrointestinal: Soft and benign (CELESTE serosanguineous, no pus no bile) External genitalia: No edema Rectal: Deferred - Studies reviewed Medications List Reviewed: Yes Assessment And Plan - Plan npo CELESTE care continue abx oob Incentive spirometry
--- NOTE | 2018-05-17 13:57 | P.PN ---
Subjective Date of Service: 05/17/18 Chief Complaint: gangrenous cholecystitis, Pt seen and examined at bedside with RN today. Case discussed with general surgery. S/P Lap Kenny. CELESTE drain in place. Draining dark Serasanginous Fluids. Passing Gas and had BM today Review of Systems 10-point ROS is otherwise unremarkable Physical Examination - Vital Signs Temperature: 96.8 F Blood Pressure: 130/57 Pulse: 84 Respirations: 18 Pulse Ox (%): 95 - Physical Exam General: Alert, In no apparent distress HEENT: Atraumatic, PERRLA, EOMI Neck: Supple, JVD not distended Respiratory: Clear to auscultation bilaterally, Normal air movement Cardiovascular: Regular rate/rhythm, Normal S1 S2 Gastrointestinal: Normal bowel sounds, Tenderness Musculoskeletal: No tenderness Integumentary: No rashes Neurological: Normal speech, Normal tone, Normal affect Lymphatics: No axilla or inguinal lymphadenopathy - Studies Medications List Reviewed: Yes Assessment And Plan - Current Problems (Diagnosis) (1) Acute cholecystitis Onset Date: 05/14/18 Current Visit: Yes Status: Acute Plan: Acute Cholecysitis on the ABD CT and US -Gen Surgery consulted. Appreciate reccs -S/p LAp Kenny POD # 3 -Gangrenous Gallbladder with Peritonitis -IV Fluids and Cipro/flagyl -Monitor Closely -Sips of Clear today. F/U with Surgery on Diet advancement (2) CAD (coronary artery disease) Onset Date: 05/14/18 Current Visit: Yes Status: Chronic Qualifiers: Coronary Disease-Associated Artery/Lesion type: bypass graft, autologous vein Associated angina: without angina Qualified Code(s): I25.810 - Atherosclerosis of coronary artery bypass graft(s) without angina pectoris (3) Dyslipidemia Onset Date: 05/14/18 Current Visit: Yes Status: Chronic (4) Hypertension Onset Date: 05/14/18 Current Visit: Yes Status: Chronic Qualifiers: Hypertension type: essential hypertension Qualified Code(s): I10 - Essential (primary) hypertension Discharge Plan: Home Plan to discharge in: 72 Hours - Code Status/Comfort Care Code Status Assessed: Yes Critical Care: No
[2018-05-17] MEDS ORDERED: POTASS/SODIUM PHOSPHATE 1 PKT POWD.PACK PO ONE (21:00)
[2018-05-17] MEDS: ATORVASTATIN 40 MG TAB PO SCH (21:47)
[2018-05-18] MEDS: MORPHINE 2 MG/ML SYR IV PRN (00:16)
[2018-05-18] MEDS: NA CHLORIDE 0.9% 1,000 ML IV SCH ×3 (01:26→21:37)
[2018-05-18] MEDS: PIPER/TAZO/NS 3.375gm 3.375 GM/100 ML BAG IVPB SCH ×3 (02:40→21:32)
[2018-05-18] MEDS: PANTOPRAZOLE 40MG TABLET PO SCH (05:39)
[2018-05-18 06:11] LABS: Phosphorus 2.7 mg/dL (2.5-4.9); Potassium 4.6 mmol/L (3.5-5.1)
[2018-05-18] MEDS: LOSARTAN POTASSIUM 50 MG TABLET PO SCH (09:09)
[2018-05-18] MEDS: METOPROLOL TAR 25 MG TAB PO SCH ×2 (09:09→21:32)
[2018-05-18] MEDS: VITAMIN D 400 UNIT TAB PO SCH (09:09)
[2018-05-18] MEDS: CYANOCOBALAMIN 1,000 MCG TAB PO SCH (09:09)
[2018-05-18] MEDS: HYDROCODONE/APAP 7.5/325 MG TAB PO PRN (13:12)
--- NOTE | 2018-05-18 15:35 | P.PN ---
Subjective Date of Service: 05/18/18 Chief Complaint: gangrenous cholecystitis, Pt seen and examined at bedside with RN today. Case discussed with general surgery. S/P Lap Kenny. CELESTE drain in place. Draining dark bilious Serasanginous Fluids. Passing Gas and had BM today Review of Systems 10-point ROS is otherwise unremarkable Physical Examination - Vital Signs Temperature: 98.1 F Blood Pressure: 165/82 Pulse: 89 Respirations: 20 Pulse Ox (%): 92 - Physical Exam General: Alert, In no apparent distress HEENT: Atraumatic, PERRLA, EOMI Neck: Supple, JVD not distended Respiratory: Clear to auscultation bilaterally, Normal air movement Cardiovascular: Regular rate/rhythm, Normal S1 S2 Gastrointestinal: Normal bowel sounds, Other (CELESTE drain with bilious serious unwitnessed fluid.), Tenderness Musculoskeletal: No tenderness Integumentary: No rashes Neurological: Normal speech, Normal tone, Normal affect Lymphatics: No axilla or inguinal lymphadenopathy - Studies Medications List Reviewed: Yes Assessment And Plan - Current Problems (Diagnosis) (1) Acute cholecystitis Onset Date: 05/14/18 Current Visit: Yes Status: Acute Plan: Acute Cholecysitis on the ABD CT and US -Gen Surgery consulted. Appreciate reccs -S/p LAp Kenny POD # 4 -Gangrenous Gallbladder with Peritonitis -IV Fluids and Cipro/flagyl -advanced to clear liquid diet today -given the fact that patient has bilious nursing witnessed fluid in his CELSETE drain and it is important to rule out any bile leakage. HIDA scan was done which was negative for bile leakage however patient continues to have bilious serosanguineous fluid drainage in his to drain. Will monitor very closely with general surgery in followup with any further recommendations with general surgery at this time (2) CAD (coronary artery disease) Onset Date: 05/14/18 Current Visit: Yes Status: Chronic Qualifiers: Coronary Disease-Associated Artery/Lesion type: bypass graft, autologous vein Associated angina: without angina Qualified Code(s): I25.810 - Atherosclerosis of coronary artery bypass graft(s) without angina pectoris (3) Dyslipidemia Onset Date: 05/14/18 Current Visit: Yes Status: Chronic (4) Hypertension Onset Date: 05/14/18 Current Visit: Yes Status: Chronic Qualifiers: Hypertension type: essential hypertension Qualified Code(s): I10 - Essential (primary) hypertension - Plan Pending clinical improvement at this time given the nature of his acute gangrenous gallbladder and this severely of the peritonitis along with bilious and sanguinous drainage in his CELESTE drainage patient needs to be observed here in the hospital closely. Discharge Plan: Home Plan to discharge in: 48 Hours - Code Status/Comfort Care Code Status Assessed: Yes Critical Care: No
--- NOTE | 2018-05-18 17:45 | PN ---
Date of Progress Note: 05/18/2018 Diagnoses: Gangrenous gallbladder, peritonitis, acute cholecystitis, symptomatic cholelithiasis. Review of Systems: Respiratory: No short of breath. Gastrointestinal: The patient is starting to tolerate a full liquid diet. This patient tolerated fu ll liquid diet, passing flatus, having bowel movement. CELESTE drain, serosanguineous, still dark a lot l ighter than before. Physical Examination: General: The patient is awake and alert. HEENT: Pupils are equal and reactive, anicteric. Neck: Supple. Chest: Clear. Abdomen: Soft and depressible. Intact surgical site. CELESTE drain draining. No gross bile seen. No p us seen. The dark fluid before is improving, patient had that from the gangrenous changes, not only in the gallbladder, but also anterior abdominal wall, peritoneal region. No gross bile seen in that CELESTE drain and no pus once again. No blood serosanguineous present. Extremities: Good capillary refill. Blood Work: Shows finally WBC count of 9.4 two days ago and it looked like clinically he is improvin g. Total bilirubin last time was 0.9 with alkaline phosphate 105 normal. HIDA scan was also on him negative for any leak. Urine shows a UTI on admission. Assessment: An 82-year-old patient, status post gangrenous gallbladder with peritonitis. We have be en slowly advancing his diet and controlling his infection. A CELESTE drain is becoming clear and clinica lly he is improving. Today, we going to advance diet, out of bed. Continue antibiotics. tolerate diet and pain medication. Pain can be controlled and we see clinically not on the CELESTE drain, suspicious, then we will proceed with discharge. ZIA/NICK Voice ID: [id number] Report ID: [id number]
[2018-05-18] MEDS: ATORVASTATIN 40 MG TAB PO SCH (21:34)
[2018-05-18] MEDS ORDERED: FUROSEMIDE 20 MG/ 2ML VIAL IV ONE (22:38)
[2018-05-18] MEDS ORDERED: ALPRAZOLAM 0.5 MG TABLET PO ONE (22:39)
[2018-05-18] MEDS ORDERED: ALBUTEROL 2.5 MG/3 ML NEB SOL NEB ONE (22:39)
[2018-05-18] MEDS ORDERED: ALBUTEROL 2.5 MG/3 ML NEB SOL ONE (22:45)
[2018-05-19] MEDS ORDERED: NA CHLORIDE 0.9% 1,000 ML IV SCH (02:00)
[2018-05-19] MEDS: PIPER/TAZO/NS 3.375gm 3.375 GM/100 ML BAG IVPB SCH ×2 (03:57→12:26)
[2018-05-19] MEDS: PANTOPRAZOLE 40MG TABLET PO SCH (06:02)
--- NOTE | 2018-05-19 08:11 | RAD REPORT ---
EXAM DESCRIPTION: Myrna Single View05/18/2018 10:53 pm CLINICAL HISTORY: Shortness of breath COMPARISON: none FINDINGS: Right basilar opacity is seen. Mild interstitial lung opacities bilaterally. Heart is mild ly enlarged. Postsurgical changes involve the chest. Small right pleural effusion may be present IMPRESSION: Mild bilateral interstitial lung opacities may represent interstitial pulmonary edema. Right basilar opacity may represent atelectasis, pneumonia or focal alveolar pulmonary edema
[2018-05-19] MEDS: VITAMIN D 400 UNIT TAB PO SCH (08:50)
[2018-05-19] MEDS: LOSARTAN POTASSIUM 50 MG TABLET PO SCH (08:50)
[2018-05-19] MEDS: METOPROLOL TAR 25 MG TAB PO SCH (08:51)
[2018-05-19] MEDS: CYANOCOBALAMIN 1,000 MCG TAB PO SCH (08:57)
--- NOTE | 2018-05-19 08:58 | P.PN ---
Subjective Date of Service: 05/18/18 Patient is very short of breath. Patient is tachypneic. Patient is hypoxic-O2 sats have decreased. Chest x-ray ordered. Blood pressure is elevated so will give Lasix IV. Strict Is&Os. Review of Systems 10-point ROS is otherwise unremarkable Physical Examination - Vital Signs Temperature: 98.0 F Blood Pressure: 179/93 Pulse: 101 Respirations: 18 Pulse Ox (%): 80 - Physical Exam General: Alert, Moderate distress Respiratory: Crackles/rales, Expiratory wheezes Cardiovascular: Regular rate/rhythm, Normal S1 S2, Systolic murmur Gastrointestinal: Normal bowel sounds, Soft and benign, Non-distended, No rebound Musculoskeletal: No clubbing Neurological: Normal gait, Normal strength at 5/5 x4 extr, Sensation intact, Cranial nerves 3-12 intact - Studies Medications List Reviewed: Yes Assessment & Plan - Problems (Diagnosis) (1) Shortness of breath Current Visit: Yes Status: Acute (2) Hypoxemia Current Visit: Yes Status: Acute (3) CAD (coronary artery disease) Onset Date: 05/14/18 Current Visit: Yes Status: Chronic Qualifiers: Coronary Disease-Associated Artery/Lesion type: bypass graft, autologous vein Associated angina: without angina Qualified Code(s): I25.810 - Atherosclerosis of coronary artery bypass graft(s) without angina pectoris (4) Hypertension Onset Date: 05/14/18 Current Visit: Yes Status: Chronic Qualifiers: Hypertension type: essential hypertension Qualified Code(s): I10 - Essential (primary) hypertension - Advance Directives Does patient have a Living Will: No Does patient have a Durable POA for Healthcare: No - Code Status/Comfort Care Code Status: Full Code
[2018-05-19 11:17] LABS: Absolute Lymphocytes (CBC) 1.1 K/uL (0.7-4.9); Absolute Monocytes 1.6 K/uL (0.1-1.3); Absolute Neutrophil 8.8 K/uL (1.8-8.0); Basophils % 0.9 % (0-1.3); Eosinophils % 1.9 % (0-4.4); Hematocrit 38.1 % (39.6-49.0); MCH 28.7 pg (27.0-35.0); MPV 8.4 fL (7.6-11.3); Monocytes % 13.7 % (3.3-12.3); RBC Red Blood Cell Count 4.43 M/uL (4.33-5.43)
[2018-05-19 11:40] LABS: Albumin 2.3 g/dL (3.4-5.0); Bilirubin Total 0.9 mg/dL (0.2-1.0); Phosphorus 2.5 mg/dL (2.5-4.9); Potassium 4.6 mmol/L (3.5-5.1); Protein, Total 7.1 g/dL (6.4-8.2); Thyroid Stimulating Hormone 1.83 uIU/mL (0.360-3.740)
[2018-05-19] MEDS: HYDROCODONE/APAP 7.5/325 MG TAB PO PRN (12:24)
--- NOTE | 2018-05-19 14:49 | PN ---
Date of Progress Note: 05/19/2018 Diagnoses: Gangrenous gallbladder with peritonitis. The patient is doing better. Tolerating diet. No shortness of breath. No chest pain. Review of Systems: Ten points, otherwise unremarkable. Physical Examination: General: The patient is awake and alert. HEENT: Pupils are equal and reactive, anicteric. Neck: Supple. Chest: Clear. Abdomen: Soft and depressible. Intact surgical site. CELESTE drain, minimal drainage. No bile, no pus, no blood. Just serosanguineous. Extremities: Good capillary refill. Laboratory Data: WBC count last time checked was 9.4. Blood work still pending today. Plan: The patient is taking a soft diet. From the surgical standpoint, he can go home when he is me dically clear for that. They are working on him and his respiratory status and some of the condition s, but at least from a surgical standpoint, if he gets sent home today, we going to continue the CELESTE d rain, a soft diet. He has to follow in my office next Thursday. We will like to continue him on antib iotics by mouth that may include either Cipro or Augmentin, depends on the medical doctor we are yue rodriguez. Patient also has UTI. We already taught him how to empty the CELESTE drain. We will discuss with the primary doctor, if they need some help from our standpoint, he was advised not to do heavy liftin g. ZIA/NICK Voice ID: [id number] Report ID: [id number]
--- NOTE | 2018-05-19 15:13 | ECHO ---
HEIGHT: 5 ft 5 in WEIGHT: 185 lb 0 oz DATE OF STUDY: 05/19/[address]: Gabriel Cisneros MD 2-DIMENSIONAL: YES M.MODE: YES DOPPLER: YES COLOR FLOW: YES TDS: PORTABLE: DEFINITY: BUBBLE STUDY: DIAGNOSIS: CONGESTIVE HEART FAILURE. CARDIAC HISTORY: CATHERIZATION: SURGERY: PROSTHETIC VALVE: PACEMAKER: MEASUREMENTS (cm) DIASTOLIC (NORMALS) SYSTOLIC (NORMALS) IVSd 1.2 (0.6-1.2) LA Diam 4.8 (1.9-4.0) LVEF 50-55% LVIDd 4.3 (3.5-5.7) LVIDs 3.7 (2.0-3.5) %FS 15% LVPWd 1.3 (0.6-1.2) Ao Diam 2.7 (2.0-3.7) 2 DIMENSIONAL ASSESSMENT: RIGHT ATRIUM: NORMAL LEFT ATRIUM: DILATED RIGHT VENTRICLE: NORMAL LEFT VENTRICLE: LEFT VENTRICULAR HYPERTROPHY TRICUSPID VALVE: NORMAL MITRAL VALVE: NORMAL PULMONIC VALVE: NORMAL AORTIC VALVE: MILD SCLEROSIS PERICARDIAL EFFUSION: NONE AORTIC ROOT: NORMAL LEFT VENTRICULAR WALL MOTION: NORMAL DOPPLER/COLOR FLOW: MILD MITRAL REGURGITATION AND TRICUSPID REGURGITATION. NORMAL RIGHT VENTRICULAR SYSTOLIC PRESSURE. COMMENTS: NORMAL LEFT VENTRICULAR EJECTION FRACTION. DILATED LEFT ATRIUM. LEFT VENTRICULAR HYPERTROPHY. MILD MITRAL REGURGITATION AND TRICUSPID REGURGITATION. AORTIC SCLEROSIS WITH NO AORTIC STENOSIS OR AORTIC REGURGITATION. TECHNOLOGIST: JESSICA NEVES
--- NOTE | 2018-05-19 16:18 | P.DS ---
Admission Date: 05/13/18 Discharge Date: 05/19/18 Disposition: ROUTINE DISCHARGE Discharge Condition: GOOD Reason for Admission: gangrenous cholecystitis, - Problems (1) Acute cholecystitis Onset Date: 05/14/18 Status: Acute (2) CAD (coronary artery disease) Onset Date: 05/14/18 Status: Chronic Qualifiers: Coronary Disease-Associated Artery/Lesion type: bypass graft, autologous vein Associated angina: without angina Qualified Code(s): I25.810 - Atherosclerosis of coronary artery bypass graft(s) without angina pectoris (3) Dyslipidemia Onset Date: 05/14/18 Status: Chronic (4) Hypertension Onset Date: 05/14/18 Status: Chronic Qualifiers: Hypertension type: essential hypertension Qualified Code(s): I10 - Essential (primary) hypertension Brief History of Present Illness: Mr Escobar is a 82-year-old male with history of CAD status post CABG, hypertension, dyslipidemia, who start with right upper quadrant abdominal pain associated with nausea about 2 days ago. He noticed also abdominal distention. He denied any vomiting, or diarrhea. He also denied fever or chills. Laboratory work remarkable for leukocytosis, elevated creatinine, mildly elevated alkaline phosphatase. CT abdomen and pelvis remarkable for acute cholecystitis, subsequent abdominal ultrasound confirmed acute cholecystitis and also reports sludge. He denied any chest pain or shortness of breath. Hospital Course: Over the hospital stay patient remained stable Patient was initially admitted to the hospital for right upper quadrant pain and was found to have acute cholecystitis. General surgery was consulted who took the patient to the OR for lap choly. Patient had a lap choly which revealed the patient had pretty gangrenous gallbladder along with peritonitis. CELESTE drain was placed at that time. Patient tolerated the procedure well and then transferred to the regular floor for further care. Since the patient had pretty extensive gangrenous bladder along with peritonitis patient's diet was advanced slowly here in the hospital. Once he was able to pass gas and had a bowel movement here in the hospital. Patient was continued on IV antibiotics and was switched over to p.o. Augmentin. Patient had marked improvement in his symptoms. Initially CELESTE drain was training greenish bilious colored fluid does head scan was done to evaluate for bile leakage. HIDA scan was within normal limits and no bile leakage was identified. Patient then was discharged home under stable condition was asked to take Augmentin for next 10 days. Night before the discharge patient started having acute shortness of breath and was given 1 time placing usage and felt better. Patient had a hospital which was within normal limits as well. Vital Signs/Physical Exam: Temp Pulse Resp BP Pulse Ox 98.7 F 115 H 18 183/119 H 93 05/19/18 12:00 05/19/18 12:00 05/19/18 12:00 05/19/18 12:00 05/19/18 12:00 General: Alert, In no apparent distress HEENT: Atraumatic, PERRLA, EOMI Neck: Supple, JVD not distended Respiratory: Clear to auscultation bilaterally, Normal air movement Cardiovascular: Regular rate/rhythm, Normal S1 S2 Gastrointestinal: Normal bowel sounds, Tenderness Musculoskeletal: No tenderness Integumentary: No rashes Neurological: Normal speech, Normal tone, Normal affect Lymphatics: No axilla or inguinal lymphadenopathy Laboratory Data at Discharge: WBC 11.8 K/uL (4.3-10.9) H D 05/19/18 10:55 Hgb 12.7 g/dL (13.6-17.9) L 05/19/18 10:55 Hct 38.1 % (39.6-49.0) L 05/19/18 10:55 Plt Count 369 K/uL (152-406) D 05/19/18 10:55 Sodium 140 mmol/L (136-145) 05/19/18 10:55 Potassium 4.6 mmol/L (3.5-5.1) 05/19/18 10:55 BUN 20 mg/dL (7-18) H 05/19/18 10:55 Creatinine 2.10 mg/dL (0.55-1.3) H 05/19/18 10:55 Glucose 102 mg/dL (74-106) 05/19/18 10:55 Phosphorus 2.5 mg/dL (2.5-4.9) 05/19/18 10:55 Magnesium 2.0 mg/dL (1.8-2.4) 05/19/18 10:55 Total Bilirubin 0.9 mg/dL (0.2-1.0) 05/19/18 10:55 AST 60 U/L (15-37) H 05/19/18 10:55 ALT 31 U/L (12-78) 05/19/18 10:55 Alkaline Phosphatase 202 U/L (45-117) H 05/19/18 10:55 Lipase 56 U/L (73-393) L 05/13/18 13:30 Home Medications: Atorvastatin Calcium [Lipitor] 0.5 tab PO BEDTIME 05/13/18 Cholecalciferol (Vitamin D3) [Vitamin D3] 2 tab PO DAILY 05/13/18 Cyanocobalamin [Vitamin B-12*] 1,000 mcg PO DAILY 05/13/18 Hydrocortisone Cream [Hydrocortisone 1% Cream*] 1 appl TOP BID 05/13/18 Losartan Potassium 25 mg PO DAILY 05/13/18 Metoprolol Tartrate [Lopressor*] 0.5 tab PO Q12H 05/13/18 Mineral Oil/Petrolatum,White [Eucerin Creme] 1 appl TP QID 05/13/18 [place]-3/Dha/Epa/Fish Oil [Fish Oil 500 mg Softgel] 2 cap PO DAILY 05/13/18 Omeprazole 20 mg PO DAILY 05/13/18 Oxybutynin Chloride [Ditropan*] 2 tab PO BID 05/13/18 Triamcinolone 0.1% Oint [Kenalog 0.1% Ointment*] 1 appl TOP BIDP PRN 05/13/18 hydrOXYzine HCl [Atarax] 25 mg PO Q6HP PRN 05/13/18 Amoxicillin/Potassium Clav [Augmentin 875-125 Tablet] 1 each PO BID #14 tablet 05/19/18 Tramadol HCl [Ultram] 50 mg PO Q8H #30 tablet 05/19/18 New Medications: Amoxicillin/Potassium Clav [Augmentin 875-125 Tablet] 1 each PO BID #14 tablet Tramadol HCl [Ultram] 50 mg PO Q8H #30 tablet Diet: Regular Activity: Ad maximo Followup: Brett Coffman MD [ACTIVE - CAN ADMIT] - 1 Week (Call for appointment)
== END 2018-05-19 15:30 | disposition home or self-care (01) | DRG 417 ==
LOC: ER 13:15 → ERHOLD 16:41 → 2ND 20:15
PROVIDERS: ADMIT Family Medicine; ATTEND Family Medicine
PROC: 0FT44ZZ Resection of Gallbladder, Percutaneous Endoscopic Approach (ICD-10-PCS; principal; 2018-05-14 12:30)
DX: K80.00 Calculus of gallbladder with acute cholecystitis without obstruction (principal); K65.9 Peritonitis, unspecified; K82.A1 Gangrene of gallbladder in cholecystitis; I25.10 Atherosclerotic heart disease of native coronary artery without angina pectoris; E78.49 Other hyperlipidemia; I12.9 Hypertensive chronic kidney disease with stage 1 through stage 4 chronic kidney disease, or unspecified chronic kidney disease; N18.3 Chronic kidney disease, stage 3 (moderate); R06.02 Shortness of breath; Z95.1 Presence of aortocoronary bypass graft
CPT/HCPCS: 36415; 71045; 74176; 76705; 78226; 80048; 80053; 80076; 81003; 81015; 83690; 83735; 83880; 84100; 84439; 84443; 85025; 87086; 87088; 88304; 93005; 93306; 94640; 96361; 96365; 96375; 99285; A9537; J0330; J0696; J0744; J1170; J1940; J2175; J2270; J2370; J2405; J2543; J2704; J2710; J3010; J7030

== ENCOUNTER 2021-03-27 10:25 | Inpatient (IN) | payer OTHER ==
--- NOTE | 2021-03-27 08:33 | R.PREADM ---
PRE-ADMISSION SCREENING FORM SCREENING DATE AND TIME 03/25/2021 15:35 (CDT) ANTICIPATED REHAB ADMISSION DATE 03/27/2021 REFERRING FACILITY [facility] REFERRAL DATE AND TIME 03/25/2021 15:35 (CDT) REFERRAL ROOM# 102 ACUTE ADMIT DATE 03/20/2021 Previous Rehabilitation(s): No. 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 VELÁZQUEZ REHAB FACILITY [facility] CLINICAL LIAISON Jeimy Echavarria PHYSICIAN REVIEWER Dr. Domo Bland M.D. MR# [id number] NAME BRENT ESCOBAR ADDRESS [address] [place] [address] PHONE [facility] [id number] DATE OF 1935 AGE 85 N# [id number] GENDER male MARITAL STATUS Single (Never ) ADMIT FROM 02 - [facility] PRE-HOSPITAL LIVING SETTING 01 - Home (private home/apt. board/care, assisted living, chcf, transitional living) HOME TYPE AND DETAILS Type of home: single family house # of steps to enter the residence: 0 # of steps within the residence: 0 # of levels in the residence: 1 PRE-HOSPITAL LIVING WITH Family/Relatives FAMILY SUPPORT Yes PRIMARY FAMILY CONTACT NAME Dannielle Rendon PRIMARY FAMILY CONTACT PHONE PRIMARY FAMILY CONTACT RELATIONSHIP DAUGHTER PHONE PRIMARY FAMILY CONTACT ON ADM.? no IS PRIMARY FAMILY CONTACT AUTH. REP.? yes 1ST EMERGENCY CONTACT Dannielle Rendon 1ST CONTACT PHONE 1ST CONTACT RELATIONSHIP DAUGHTER PHONE 1ST CONTACT ON ADM. no IS 1ST CONTACT AUTH. REP.? yes PHONE 2ND CONTACT ON ADM.? no PATIENT EMPLOYMENT STATUS Retired (for age) PATIENT EMPLOYER No Employer PAYOR INFORMATION: 1ST PAYOR NAME Medicare 1ST PAYOR PHONE [phone] 1ST PAYOR 2ND PAYOR NAME [employer] ADMIN F[employer] 2ND PAYOR PHONE [phone] 2ND PAYOR POLICY ID [id number] 2ND PAYOR POLICY GROUP [id number] INJURY/ILLNESS DUE TO ACCIDENT? No ANOTHER ALLIANCE PARTY RESPONSIBLE? 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 Clinical Staff may employ other methods such as: massage, distraction, decrease stimulus, etc. as needed - Skin Breakdown Nursing will assess skin daily using assessment tool and will place on Skin Breakdown Precautions as Indicated per protocol - DVT Routine checks/assessments of pt ADARSH hose; sequential compression device as needed/prescribed - Infection Clinical Staff to monitor for signs and symptoms of infection including fever, redness, warmth, WBC Clinical staff to provide education to patient/family member/caregiver for proper care and management - Falls Educated pt on fall prevention strategies to reduce/eliminate fall risk Patient will be evaluated for Fall Precautions and will be placed on Fall Precautions as indicated pe r protocol. - UTI Monitor for frequency, burning, discomfort, or incontinence - PNA Clinical staff to encourage OOB movements/tasks/activities Clinical staff to encourage breathing exercises SUMMARY OF ACUTE HOSPITALIZATION: Pt. is a 85 yo Right-handed male. On 03/05/2021 Pt. presented to [facility] with sudden onset of right-side weakness. On 03/05/2021 he was admitted to [facility] with diagnosis Thrombosis of left middle cerebral ar pearl. His impairment category is Stroke 01 - Right Body (Left Brain) (01.2). Pre-morbidly, Pt. was supervision Locomotion, Social Cognition, Safety Awareness, Transfers Control, and Balance; and he had good Endurance, Self-Care, Communication, and Sphincter Control. Currently, he has deficits of Locomotion, Social Cognition, Safety Awareness, Transfers Control, Sphi ncter Control, Balance, Self-Care, and Communication. Pt. is now referred to [facility] for acute in-patient rehabilitation in order to maximize patient's functional independence in activities of daily living, strength, ROM, and mobi lity. Patient has realistic goal of being discharged at assistance level 7-Ind to reside at Home with [facility] ly/Relatives. Mr. Escobar is a 85 yo male that lives at home with his daughter and son-in-law that assist him as ne eded. Mr. Escobar has a past medical history of HTN, HLD, CKD, mild dementia, and IHD s/p CABG. Mr. Escobar was admitted to [facility] 03[facility]05[facility]20[facility]. On 03/05/2021, Mr. Escobar's daughter and son-in-law stepped out of the house t o go grocery shopping, upon returning home (4pm.), pt's daughter found Mr. Escobar to be leaning to t he R side and RFD. After suspecting a stroke, pt's daughter took Mr. Escobar to the hospital where a stroke was later determined to be a thrombosis of left middle cerebral artery. Per pt's family member s, pt is consistent with doctor appointments with [place] doctor. Prior to hospitalization, pt was able to cook well on his own and requires CGA for ADL's. Mr. Escobar's family took patient against medical a dvise from [facility] to return home. Upon returning home, pt tested positive for COVID PNA on 03/16/21. With increased assistance from family members due to low endurance and decreased UB/LB [facility], pt's was transported via ambulance to [facility] 03/20/2021 where he was admitted for pr evious CVA (earlier in the month) and COVID 19. Mr. Escobar reported to [facility] with SOB, co ugh, and respiratory problem. Pt is currently working with PT where he requires moderate assistance f or safe xfers and max assistance for bed mobility due to SOB, fatigue, low endurance, safety awarenes s deficits, and decreased UB/LB strength secondary to decreased OOB activity and CVA. Pt requires int ense acute IRF with interdisciplinary approach from (OT/PT/ST) to address the following: educating pt on bringing food to mouth to decrease spillage due to CVA affecting dominant side, educating pt on c ompensatory strategies for UB/LB dressing due to residual weakness and low endurance, educating pt an d family members on caregiver assistance/compensatory strategies for safe bathing and tub xfers, incr ease UB/LE strengthening to decrease caregiver burden, gait training, balance training, mobility sharan brandon, xfer training, safety awareness, pt/family education, LE/UE ROM, cognitive training, and memory strategies. Pt faces many risks of falls, pressure sores, CVA, infection, DVT, worsening PNA, etc. w ithout assistance of intensive inpatient rehab. With an interdisciplinary approach by acute IRF, pt d emonstrates good potential to increase independence and maximize safety awareness to safely dc. It i s reasonable and necessary for the patient to come to acute IRF for approximately 7-10 days. Mr. Clarita perez is medically stable but in need of 24 hour nursing, doctor supervision, and oversight while rece iving active and ongoing (ST/PT/OT). The patient is reasonably expected to participate in 3 hours of therapy a day/15 hours a week. PAST MEDICAL HISTORY CAD CVA Dementia PAST SURGICAL HISTORY: CABG (DATE not provided) MEDICATION ALLERGIES: No Known Drug Allergies (NKDA) ENVIRONMENTAL ALLERGIES: None Known - Substance Allergies None Known - Other Allergies None Known CODE STATUS: Full code WEIGHT/HEIGHT/BMI: WEIGHT 186.29 lbs HEIGHT 5' 10" BMI 26.7 DIET: - Diet Type Regular - Diet - Solid Texture Regular - Diet - Liquid Texture Regular - Tube Feed N/A SKIN DIAGRAM: Aching Chest pain; level - 2./10 Chest REVIEW OF SYSTEMS: - Gen Alert and awake Lying in bed No apparent distress Oriented to: person, time, and place - Vital Signs Temperature: 98.2 F SBP/DBP: 125/57 Pulse: 65 Resp: 18 Vital signs stable, afebrile - CVS RRR VITAL SIGNS Temperature: 98.2 F Oral. SBP/DBP: 125/57 Right arm sitting Pulse: 65 Resp: 18 Vital signs stable, afebrile Vitals taken on 03/25/21 at 00:30 CDT MEDICATIONS/TREATMENT: Other- See attached MAR (Medication Administration Record). CURRENT SPHINCTER CONTROL: Pre-hospital bladder status: unspecified # of bladder accidents in the last 7 days prior to screenin Pre-hospital bowel status: unspecified # of bowel accidents in the last 7 days prior to screenin Last Bowel Movement Date: 03/25/2021 CURRENT LOCOMOTION STATUS: distance walked 0 feet DETAILED CURRENT FUNCTIONAL STATUS: - Bladder accident frequency: 7-Ind - No accidents in the past 7 days - Bowel accident frequency: 7-Ind - No accidents in the past 7 days - Walking score based on distance walked: 0(N/A) - Wheelchair score based on distance traveled: 0(N/A) QI SCORES: - Self-Care A. Eating 03-Partial/moderate assistance B. Oral hygiene 03-Partial/moderate assistance C. Toileting hygiene 02-Substantial/maximal assistance E. Shower/bathe self 02-Substantial/maximal assistance F. Upper body dressing 03-Partial/moderate assistance G. Lower body dressing 02-Substantial/maximal assistance H. Putting on/taking off footwear 88-Not attempted due to medical condition or safety concerns - Mobility A. Roll left and right 03-Partial/moderate assistance B. Sit to lying 02-Substantial/maximal assistance C. Lying to sitting on side of bed 03-Partial/moderate assistance D. Sit to stand 03-Partial/moderate assistance E. Chair/egk-gt-nfdvd transfer F. Toilet transfer 02-Substantial/maximal assistance G. Car transfer 88-Not attempted due to medical condition or safety concerns I. Walk 10 feet 88-Not attempted due to medical condition or safety concerns J. Walk 50 feet with two turns 88-Not attempted due to medical condition or safety concerns K. Walk 150 feet 88-Not attempted due to medical condition or safety concerns L. Walking 10 feet on uneven surfaces 88-Not attempted due to medical condition or safety concerns M. 1 step (curb) 88-Not attempted due to medical condition or safety concerns N. 4 steps 88-Not attempted due to medical condition or safety concerns O. 12 steps 88-Not attempted due to medical condition or safety concerns P. Picking up object 88-Not attempted due to medical condition or safety concerns R. Wheel 50 feet with two turns 88-Not attempted due to medical condition or safety concerns S. Wheel 150 feet 88-Not attempted due to medical condition or safety concerns - Bladder and Bowel Bladder continence Bowel continence - Endurance Poor - Balance Poor - Safety Awareness Fair CURRENT FUNC. DEFICITS: Self-Care, Mobility, Endurance, Balance, and Safety Awareness CURRENT / PREVIOUS ASSISTIVE DEVICES: Pt's daughter reported purchasing Mr. Mejia a w/c, rollator, tubbench, and hosptial bed after retur brandon home with CVA. HISTORY OF FALLS. HAS THE PATIENT HAD TWO OR MORE FALLS IN THE PAST YEAR OR ANY FALL WITH INJURY IN T HE PAST YEAR?: Unknown PRIOR SURGERY. DID THE PATIENT HAVE MAJOR SURGERY DURING THE 100 DAYS PRIOR TO ADMISSION?: Unknown THERAPY NOTES FROM ACUTE CARE: Attached. SPECIAL NEEDS: - Safety Concerns Skin breakdown precautions needed due to skin breakdown risk Falls due to CVA and residual weakness PRECAUTIONS: - Fall Precaution Bed alarm TABS alarm Wheel chair alarm PATIENT NEEDS ACTIVE AND ONGOING THERAPEUTIC INTERVENTION OF MULTIPLE THERAPY DISCIPLINES, INCLUDING: - Dietary and Nutrition Adequate Nutrition. Nutritional Education. Nutritional Supplements. - Occupational Therapy Cognitive Retraining. Evaluate and Treat. ADL Training. Community Reintegration. Eating. Household Ta sks. Patient/Family Education. Transfer Training. UE ROM. UE Strengthening. Safety Awareness. Adaptiv e Equipment. - Speech Therapy Cognitive Training. Expressive Language Skills. Memory Strategies. Receptive Language Skills. Speech Intelligibility Training. - Physical Therapy Evaluate and Treat. Balance Training. Gait Training. LE ROM. LE Strengthening. Medical Equipment Asse ssment and Evaluation. Mobility Training. Patient/Family Education. Safety Awareness. Transfer Traini ng. Wheelchair Management. PATIENT NEEDS CLOSE MEDICAL SUPERVISION BY A REHABILITATION PHYSICIAN FOR: Coordination of Treatment Team Medical and Co-Morbidity Management Wound Care PATIENT REQUIRES 24X7 REHAB NURSING FOR MEDICAL AND FUNCTIONAL MGT. OF THE FOLLOWING DEFICITS: Disease Management Medication Management Patient/Family Education Providing Safe Environment Skin Integrity PATIENT REQUIRES INTENSIVE, COORDINATED INTERDISCIPLINARY APPROACH TO REHAB: Arranging Home Equipment/Services Discharge Planning Family Intervention/Training Utility Assembler/Case Management PATIENT REHAB POTENTIAL: Mando ESCOBAR is able and expected to receive 3 hours of individualized therapy daily on at least 5 of e very 7 days Mando ESCOBAR's prognosis for significant practical improvement within a reasonable period of time appea rs Good Expected level of measurable improvement will be of a practical value to Mando ESCOBAR's functional capa city or adaptations to impairments Has a viable Discharge Plan Medically appropriate; condition is sufficiently stable to participate in intensive rehab program DISCHARGE PLAN: - Estimated Length of Stay (days) 7. - Consensus on plan Discharge plan has been discussed with primary caregiver. Patient/Family is in agreement with the cristina n. Primary caregiver is in agreement with the plan. - Patient/Family Goals Return home with assistance. - Planned Living Setting Upon Discharge Home, to live with Family/Relatives. Transitional Living. RECOMMENDED CARE LEVEL: IRF RECOMMENDATION DETAILS: Recommended Admission to Comprehensive Rehabilitation Program to Increase Functional [place] SCREENER'S COMPLETENESS CONFIRMATION: - Screening Confirmation The patient data collection on this preadmission screening form is finished PHYSICIANS REVIEW AND ADMISSION DETERMINATION Admit - Based on my review of the Pre-Admission Screening results, in my medical judgment and experie nce, I concur with the findings and recommend admission to [facility], as this patient requires an IRF level of care. SIGNATURE PANEL: Education Administrator - [electronically] signed by Ayaan Soriano PT on 03/26/2021 at 17:01 (CDT) Physician Reviewer - [electronically] signed by Dr. Domo Bland M.D. on 03/27/2021 at 08:32 (CDT )
[2021-03-27] MEDS ORDERED: ACETAMINOPHEN 500 MG TAB PO PRN (16:20)
--- NOTE | 2021-03-27 16:56 | R.HP ---
HISTORY AND PHYSICAL FACILITY: [facility] ENCOUNTER DATE AND TIME: 03/27/2021 16:43 (CDT) MR#: [id number] NAME BRENT ESCOBAR ADDRESS: [address] [place] [address] [address] [facility]: [facility] [place] [address] PHONE: DATE OF : 1935 AGE: 85 SSN# [id number] GENDER: Male MARITAL STATUS Single (Never ) PRE-HOSPITAL LIVING SETTING 01 - Home (private home/apt. board/care, assisted living, detention, transitional living) PRE-HOSPITAL LIVING WITH Family/Relatives ENCOUNTER PHYSICIAN: Dr. Domo Bland M.D. REFERRING DOCTOR: DR. 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 is a 85 yo Right-handed male. On 03/05/2021 Pt. presented to [facility] with sudden onset of right-side weakness. On 03/05/2021 he was admitted to [facility] with diagnosis Thrombosis of left middle cerebral ar pearl, Post covid-19 syndrome. His impairment category is Stroke 01 - Right Body (Left Brain) (01.2). Pre-morbidly, Pt. was supervision Locomotion, Social Cognition, Safety Awareness, Transfers Control, and Balance; and he had good Endurance, Self-Care, Communication, and Sphincter Control. Currently, he has deficits of Locomotion, Social Cognition, Safety Awareness, Transfers Control, Sphi ncter Control, Balance, Self-Care, and Communication. Pt. is now referred to [facility] for acute in-patient rehabilitation in order to maximize patient's functional independence in activities of daily living, strength, ROM, and mobi lity. Patient has realistic goal of being discharged at assistance level 7-Ind to reside at Home with [facility] ly/Relatives. Mr. Escobar is a 85 yo male that lives at home with his daughter and son-in-law that assist him as ne eded. Mr. Escobar has a past medical history of HTN, HLD, CKD, mild dementia, and IHD s/p CABG. Mr. Escobar was admitted to [facility] 03/05/2021 [facility]. On 03/05/2021, Mr. Escobar's daughter and son-in-law stepped out of the house t o go grocery shopping, upon returning home (4pm.), pt's daughter found Mr. Escobar to be leaning to t he R side and RFD. After suspecting a stroke, pt's daughter took Mr. Escobar to the hospital where a stroke was later determined to be a thrombosis of left middle cerebral artery. Per pt's family member s, pt is consistent with doctor appointments with [place] doctor. Prior to hospitalization, pt was able to cook well on his own and requires CGA for ADL's. Mr. Escobar's family took patient against medical a dvise from [facility] to return home. Upon returning home, pt tested positive for COVID PNA on 03/16/21. With increased assistance from family members due to low endurance and decreased UB/LB [facility], pt's was transported via ambulance to [facility] 03/20/2021 where he was admitted for pr evious CVA (earlier in the month) and COVID 19. Mr. Escobar reported to [facility] with SOB, co ugh, and respiratory problem. Pt is currently working with PT where he requires moderate assistance f or safe xfers and max assistance for bed mobility due to SOB, fatigue, low endurance, safety awarenes s deficits, and decreased UB/LB strength secondary to decreased OOB activity and CVA. Pt requires int ense acute IRF with interdisciplinary approach from (OT/PT/ST) to address the following: educating pt on bringing food to mouth to decrease spillage due to CVA affecting dominant side, educating pt on c ompensatory strategies for UB/LB dressing due to residual weakness and low endurance, educating pt an d family members on caregiver assistance/compensatory strategies for safe bathing and tub xfers, incr ease UB/LE strengthening to decrease caregiver burden, gait training, balance training, mobility sharan brandon, xfer training, safety awareness, pt/family education, LE/UE ROM, cognitive training, and memory strategies. Pt faces many risks of falls, pressure sores, CVA, infection, DVT, worsening PNA, etc. w ithout assistance of intensive inpatient rehab. With an interdisciplinary approach by acute IRF, pt d emonstrates good potential to increase independence and maximize safety awareness to safely dc. It i s reasonable and necessary for the patient to come to acute IRF for approximately 7-10 days. Mr. Clarita perez is medically stable but in need of 24 hour nursing, doctor supervision, and oversight while rece iving active and ongoing (ST/PT/OT). The patient is reasonably expected to participate in 3 hours of therapy a day/15 hours a week. MEDICATION ALLERGIES: No Known Drug Allergies (NKDA) ENVIRONMENTAL ALLERGIES: None Known - Substance Allergies None Known - Other Allergies None Known PAST MEDICAL HISTORY: CAD CVA Dementia PAST SURGICAL HISTORY: CABG (DATE not provided) SOCIAL HISTORY: - Home Living Family/Relatives REVIEW OF SYSTEMS: - Gen No Chills Fatigue No Fever - Eyes No Double Vision No itchiness - ENMT Difficulty Swallowing - CVS No Chest Discomfort No Chest Pain No Fatigue No Weight Gain - Resp No Cough Shortness of Breath - GI Continent No Abdominal Pain No Constipation No Diarrhea - Continent No Kidney Pain No Painful Urination No Urinary Urgency - MSK No Joint Pain Muscle Cramps Stiffness - Skin No Itching No Rash No Suspicious Lesions - Neuro Coordination Difficulty Difficulty with Concentration Memory Loss No Seizures Weakness - Psych No Anxiety No Depression No HIV Exposure No Persistent Infections No Seasonal Allergies - Endo No Cold/Heat Intolerance No Excessive Hunger No Excessive Thirst No Excessive Urination PHYSICAL EXAM - Gen Alert and awake Lying in bed No apparent distress Oriented to: person, time, and place - Skin No skin breakdown. No abnormalities - Eyes No abnormalities - ENMT No abnormalities - Neck No abnormalities - CVS RRR - Chest No abnormalities - Resp No wheezing - Abd Soft - GI Non distended Deferred - Campbell catheter, will remove in the AM. - Ext No significant edema - MSK 4+/5 weakness in right upper and 3/5 right lower extremity. - Neuro 4+/5 weakness in right upper and 3/5 right lower extremity. Expressive aphasia, dysarthria - Psych No abnormalities VITAL SIGNS Temperature: 97.0 F SBP/DBP: 103/52 Pulse: 73 Resp: 16 NURSING: - Shower allowing shower - Bladder care per protocol - Skin care per protocol PRECAUTIONS: - Fall Precaution Bed alarm TABS alarm Wheel chair alarm - Weight Bearing Precaution WBAT right LE ACTIVITIES OOB only with supervision QI SCORES: - Self-Care A. Eating 03-Partial/moderate assistance B. Oral hygiene 03-Partial/moderate assistance C. Toileting hygiene 02-Substantial/maximal assistance E. Shower/bathe self 02-Substantial/maximal assistance F. Upper body dressing 03-Partial/moderate assistance G. Lower body dressing 02-Substantial/maximal assistance H. Putting on/taking off footwear 88-Not attempted due to medical condition or safety concerns - Mobility A. Roll left and right 03-Partial/moderate assistance B. Sit to lying 02-Substantial/maximal assistance C. Lying to sitting on side of bed 03-Partial/moderate assistance D. Sit to stand 03-Partial/moderate assistance E. Chair/[id number]-kwdsp transfer F. Toilet transfer 02-Substantial/maximal assistance G. Car transfer 88-Not attempted due to medical condition or safety concerns I. Walk 10 feet 88-Not attempted due to medical condition or safety concerns J. Walk 50 feet with two turns 88-Not attempted due to medical condition or safety concerns K. Walk 150 feet 88-Not attempted due to medical condition or safety concerns L. Walking 10 feet on uneven surfaces 88-Not attempted due to medical condition or safety concerns M. 1 step (curb) 88-Not attempted due to medical condition or safety concerns N. 4 steps 88-Not attempted due to medical condition or safety concerns O. 12 steps 88-Not attempted due to medical condition or safety concerns P. Picking up object 88-Not attempted due to medical condition or safety concerns R. Wheel 50 feet with two turns 88-Not attempted due to medical condition or safety concerns S. Wheel 150 feet 88-Not attempted due to medical condition or safety concerns - Bladder and Bowel Bladder continence Bowel continence - Endurance Poor - Balance Poor - Safety Awareness Fair CURRENT FUNC. DEFICITS: Self-Care, Mobility, Endurance, Balance, and Safety Awareness MEDICATIONS: - Other See attached MAR (Medication Administration Record) ASSESSMENT: PtVidya is a 85 yo Right-handed male.On 03/05/2021 Pt. presented to [facility] with sudden onset of right-side weakness.On 03/05/2021 he was admitted to [facility] with diagnosis Thrombosis of lef t middle cerebral artery, Post covid-19 syndrome.His impairment category is Stroke 01 - Right Body ( Left Brain) (01.2).Pre-morbidly, Pt. was supervision Locomotion, Social Cognition, Safety Awareness, Transfers Control, and Balance; and he had good Endurance, Self-Care, Communication, and Sphincter Co ntrol.Currently, he has deficits of Locomotion, Social Cognition, Safety Awareness, Transfers Control , Sphincter Control, Balance, Self-Care, and Communication.Pt. is now referred to [facility] for acute in-patient rehabilitation in order to maximize patient's functional independ ence in activities of daily living, strength, ROM, and mobility.- Rehab Goal Patient has realistic goal of being discharged at assistance level 7-Ind to reside at Home with [facility] ly/Relatives. Mr. Escobar is a 85 yo male that lives at home with his daughter and son-in-law that assist him as ne eded. Mr. Escobar has a past medical history of HTN, HLD, CKD, mild dementia, and IHD s/p CABG. Mr. Escobar was admitted to [facility] 03/05/2021 [facility]. On 03/05/2021, Mr. Escobar's daughter and son-in-law stepped out of the house t o go grocery shopping, upon returning home (4pm.), pt's daughter found Mr. Escobar to be leaning to t he R side and RFD. After suspecting a stroke, pt's daughter took Mr. Escobar to the hospital where a stroke was later determined to be a thrombosis of left middle cerebral artery. Per pt's family member s, pt is consistent with doctor appointments with [place] doctor. Prior to hospitalization, pt was able to cook well on his own and requires CGA for ADL's. Mr. Escobar's family took patient against medical a dvise from [facility] to return home. Upon returning home, pt tested positive for COVID PNA on 03/16/21. With increased assistance from family members due to low endurance and decreased UB/LB [facility], pt's was transported via ambulance to [facility] 03/20/2021 where he was admitted for pr evious CVA (earlier in the month) and COVID 19. Mr. Escobar reported to [facility] with SOB, co ugh, and respiratory problem. Pt is currently working with PT where he requires moderate assistance f or safe xfers and max assistance for bed mobility due to SOB, fatigue, low endurance, safety awarenes s deficits, and decreased UB/LB strength secondary to decreased OOB activity and CVA. Pt requires int ense acute IRF with interdisciplinary approach from (OT/PT/ST) to address the following: educating pt on bringing food to mouth to decrease spillage due to CVA affecting dominant side, educating pt on c ompensatory strategies for UB/LB dressing due to residual weakness and low endurance, educating pt an d family members on caregiver assistance/compensatory strategies for safe bathing and tub xfers, incr ease UB/LE strengthening to decrease caregiver burden, gait training, balance training, mobility sharan brandon, xfer training, safety awareness, pt/family education, LE/UE ROM, cognitive training, and memory strategies. Pt faces many risks of falls, pressure sores, CVA, infection, DVT, worsening PNA, etc. w ithout assistance of intensive inpatient rehab. With an interdisciplinary approach by acute IRF, pt d emonstrates good potential to increase independence and maximize safety awareness to safely dc. It i s reasonable and necessary for the patient to come to acute IRF for approximately 7-10 days. Mr. Clarita perez is medically stable but in need of 24 hour nursing, doctor supervision, and oversight while rece iving active and ongoing (ST/PT/OT). The patient is reasonably expected to participate in 3 hours of therapy a day/15 hours a week.REHAB PLAN: for Dementia, TBI, Stroke, or others - Physical Therapy Weakness - to improve, our physical therapists will perform initial evaluation of pt's status upon a dmission and devise an individualized program for Aquatic Therapy, Neuromuscular Reeducation, and Str engthening Poor balance - to improve, our physical therapists will perform initial evaluation of pt's status up on admission and devise an individualized program for Balance Training Inability to transfer - to improve, our physical therapists will perform initial evaluation of pt's status upon admission and devise an individualized program for Bed mobility Need in caregiver upon discharge - to improve, our physical therapists will perform initial evaluati on of pt's status upon admission and devise an individualized program for Caregiver Training Poor endurance - to improve, our physical therapists will perform initial evaluation of pt's status upon admission and devise an individualized program for Endurance Training Gait dysfunction - to improve, our physical therapists will perform initial evaluation of pt's statu s upon admission and devise an individualized program for Gait Training, and Wheel Chair mobility Need for home safety evaluation - to improve, our physical therapists will perform initial evaluatio n of pt's status upon admission and devise an individualized program for Home Evaluation New precaution - to improve, our physical therapists will perform initial evaluation of pt's status upon admission and devise an individualized program for Patient precaution education Edema - to improve, our physical therapists will perform initial evaluation of pt's status upon admi ssion and devise an individualized program for Elevation Training, and Lymphedema Therapy - Occupational Therapy Weakness - to improve, our occupation therapists will perform initial evaluation of pt's status upon admission and devise an individualized program for Aquatic Therapy, Balance, Endurance, UE ROM, and UE strengthening ADL deficits - to improve, our occupation therapists will perform initial evaluation of pt's status upon admission and devise an individualized program for Bathing, Bed mobility, Community Reintegratio n, Cooking, Dressing, Eating, Fine Motor Skills, Grooming, Homemaking, Kitchen Mobility, Laundry, Pat ient Education, Safety Awareness, Splinting - Positioning, Transfers(Toilet, Tub, Shower), and Wheel Chair Management Need for patient care manager - to improve, our occupation therapists will perform initial evaluation of pt's status upon admission and devise an individualized program for Caregiver Training Cognitive deficits - to improve, our occupation therapists will perform initial evaluation of pt's s tatus upon admission and devise an individualized program for Cognition - orientation - Balance for Weakness - Bed mobility for ADL deficits - Cognition - orientation for Dementia - Dressing Status: for ADL deficits - Eating for ADL deficits - Grooming Status: for ADL deficits - Toilet Transfer for ADL deficits Status: - Bed to Chair Transfer SELECT Status: for ADL deficits - Tub Transfer for ADL deficits Status: - Hygiene for ADL deficits - Shower Transfer for ADL deficits Status: - Wheel Chair to Bed Transfer Status: for ADL deficits MEDICAL PLAN: - Diet Type Regular - Diet - Liquid Texture Regular - Tube Feed N/A - Bladder care per protocol - Weight Bearing Precaution WBAT LE - Fall Precaution Bed alarm TABS alarm Wheel chair alarm - Skin care per protocol - Other See attached MAR (Medication Administration Record) - Diet - Solid Texture Regular - Shower shower DISCHARGE PLAN: - Estimated Length of Stay (days) 7. - Consensus on plan Discharge plan has been discussed with primary caregiver. Patient/Family is in agreement with the cristina n. Primary caregiver is in agreement with the plan. - Patient/Family Goals Return home with assistance. - Planned Living Setting Upon Discharge Home, to live with Family/Relatives. Transitional Living. SIGNATURE PANEL: (CDT)
--- NOTE | 2021-03-27 16:57 | PAPE ---
POST ADMISSION PHYSICIAN EVALUATION PATIENT: [facility] MR# [id number] REFERRING DOCTOR DR. VELÁZQUEZ EVALUATION DATE AND TIME 03/27/2021 16:55 (CDT) NAME BRENT MCCLELLAN DATE OF 1935 AGE 85 PHONE SSN# [id number] GENDER male EVALUATING PHYSICIAN Dr. Domo Bland M.D. 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 PATIENT NEEDS CLOSE MEDICAL SUPERVISION BY A REHABILITATION PHYSICIAN FOR: Coordination of Treatment Team Medical and Co-Morbidity Management Wound Care PATIENT REQUIRES 24X7 REHAB NURSING FOR MEDICAL AND FUNCTIONAL MGT. OF THE FOLLOWING DEFICITS: Disease Management Medication Management Patient/Family Education Providing Safe Environment Skin Integrity PATIENT REQUIRES INTENSIVE, COORDINATED INTERDISCIPLINARY APPROACH TO REHAB: Arranging Home Equipment/Services Discharge Planning Family Intervention/Training Locomotive Observer/Case Management LIST OF IDENTIFIED AND POTENTIAL PROBLEMS: Alteration in leisure activities Bladder, Incontinence Bowel, Incontinence Falls, Actual or Potential Infection, Actual or Potential Mobility Impaired Pain, Alteration in Comfort Self Care Deficit Skin Integrity, Actual or Potential Urinary Tract Infection (UTI), Actual or Potential RISK FOR COMPLICATIONS - CAD CHF. Cardiac Arrest. OR. - Pain Clinical staff will assess patient's pain level every shift per protocol to monitor for pain manageme nt effectiveness. Educate patient on pain management strategies. Medications will be given and the pa in level reassessed. Clinical Staff may employ other methods such as: massage, distraction, decrease stimulus, etc. as needed. - Skin Breakdown Nursing will assess skin daily using assessment tool and will place on Skin Breakdown Precautions as Indicated per protocol. - DVT Routine checks/assessments of pt. ADARSH hose; sequential compression device as needed/prescribed. - Infection Clinical Staff to monitor for signs and symptoms of infection including fever, redness, warmth, WBC. Clinical staff to provide education to patient/family member/caregiver for proper care and management . - Falls Educated pt on fall prevention strategies to reduce/eliminate fall risk. Patient will be evaluated fo r Fall Precautions and will be placed on Fall Precautions as indicated per protocol. - UTI Monitor for frequency, burning, discomfort, or incontinence. - PNA Clinical staff to encourage OOB movements/tasks/activities. Clinical staff to encourage breathing exe rcises. PATIENT COULD BE AT RISK FOR COMPLICATIONS FROM ADVERSE MEDICAL CONDITIONS DUE TO HIS/HER COMORBIDITI ES AND THE RIGORS OF THE INTENSIVE REHABILLITATION PROGRAM. METHODS OR INTERVENTIONS TO AVOID COMPLIC ATIONS INCLUDE: - Bleeding Assess lab values and manage abnormalities. Nursing to teach precautions for anti-coagulation therapy . Stroke patients assessed for lethargy or change in status. Wound to be assessed every shift. - Infection Clinical staff to assess and manage the signs and symptoms of infection including fever, redness, war mth, etc. - Urinary Tract Infection - Aspiration Clinical staff will assess and manage coughing, drooling, congestion. - Falls Patient will be evaluated for Fall Precautions and will be placed on Fall Precautions as indicated pe r protocol. - Skin Breakdown Nursing will assess skin daily using assessment tool and will place on Skin Breakdown Precautions as indicated per protocol. - Pain Clinical staff may employ non-medication methods such as massage, distraction, decrease stimulus, etc . as needed. Clinical staff will assess patient's pain level every shift per protocol to assess and e nsure pain management effectiveness. Medications will be given and the pain level re-assessed. PRELIMINARY PLAN OF CARE: - Physical Therapy Patient needs Physical Therapy for a daily minimum of 1.5 hours at least 5 out of 7 days, to improve: Mobility, Strengthening, Transfers, Stretching, ROM, Endurance, Ability to manage stairs, Gait, and Balance. - Speech Therapy Patient needs Speech Therapy for a daily minimum of 0.5 hours at least 5 out of 7 days, to improve: S wallowing, Cognition, Language Skills, and Compensatory Strategies. - Rehabilitation Nursing Patient requires 24x7 Rehabilitation Nursing for: Pain Issues, Identifying and preventing risk factor s, Monitoring and reporting current medical conditions, Assisting with ambulation and transfer, Kaden ting with all ADL-s, Teaching patients about disease process and medications, Family teaching, Provid ing safe environment, Bowel and Bladder Issues, Skin Integrity, and Medication Management. Patient needs Locomotive Observer and/or Case Management for: Discharge Planning, Arranging Home Equipmen t or Services, and Family Interventions. - Dietary and Nutrition Services Patient needs Dietary and Nutrition Services for: Adequate Nutrition, Nutritional Supplements, and Nu tritional Education. - Occupational Therapy Patient needs Occupational Therapy for a daily minimum of 1.5 hours at least 5 out of 7 days, to impr ove Activities of Daily Living, including: Eating, Grooming, Bathing, Dressing, Toileting, Toilet Tra nsfers, Community Reintegration, Higher functional activities, Adaptive Equipment, Splinting, Househo ld Tasks, and Other activities as determined. QI SCORES: - Self-Care A. Eating 03-Partial/moderate assistance B. Oral hygiene 03-Partial/moderate assistance C. Toileting hygiene 02-Substantial/maximal assistance E. Shower/bathe self 02-Substantial/maximal assistance F. Upper body dressing 03-Partial/moderate assistance G. Lower body dressing 02-Substantial/maximal assistance H. Putting on/taking off footwear 88-Not attempted due to medical condition or safety concerns - Mobility A. Roll left and right 03-Partial/moderate assistance B. Sit to lying 02-Substantial/maximal assistance C. Lying to sitting on side of bed 03-Partial/moderate assistance D. Sit to stand 03-Partial/moderate assistance E. Chair/fvh-dv-ffzyo transfer F. Toilet transfer 02-Substantial/maximal assistance G. Car transfer 88-Not attempted due to medical condition or safety concerns I. Walk 10 feet 88-Not attempted due to medical condition or safety concerns J. Walk 50 feet with two turns 88-Not attempted due to medical condition or safety concerns K. Walk 150 feet 88-Not attempted due to medical condition or safety concerns L. Walking 10 feet on uneven surfaces 88-Not attempted due to medical condition or safety concerns M. 1 step (curb) 88-Not attempted due to medical condition or safety concerns N. 4 steps 88-Not attempted due to medical condition or safety concerns O. 12 steps 88-Not attempted due to medical condition or safety concerns P. Picking up object 88-Not attempted due to medical condition or safety concerns R. Wheel 50 feet with two turns 88-Not attempted due to medical condition or safety concerns S. Wheel 150 feet 88-Not attempted due to medical condition or safety concerns - Bladder and Bowel Bladder continence Bowel continence - Endurance Poor - Balance Poor - Safety Awareness Fair POTENTIAL FUNCTIONAL GOALS FOR PATIENT TO ACHIEVE BY DISCHARGE: - Safety Precaution Patient will remain free from falls or injury at time of discharge. - Bed Mobility Patient will perform bed mobility at 4-Porfirio level of assistance. - Transfers Patient will complete transfers from bed to chair at 4-Porfirio level of assistance. - Mobility Patient will ambulate 150 ft with 4-Porfirio level of assistance with RW. PATIENT REHAB POTENTIAL Mando MCCLELLAN is able and expected to receive 3 hours of individualized therapy daily on at least 5 of e very 7 days Mando MCCLELLAN'mell prognosis for significant practical improvement within a reasonable period of time appea rs Good Expected level of measurable improvement will be of a practical value to Mando MCCLELLAN's functional capa city or adaptations to impairments Has a viable Discharge Plan Medically appropriate; condition is sufficiently stable to participate in intensive rehab program DISCHARGE PLAN: - Estimated Length of Stay (days) 7. - Consensus on plan Discharge plan has been discussed with primary caregiver. Patient/Family is in agreement with the cristina n. Primary caregiver is in agreement with the plan. - Patient/Family Goals Return home with assistance. - Planned Living Setting Upon Discharge Home, to live with Family/Relatives. Transitional Living. CONCLUSION ON REHABILITATION NECESSITY: I have evaluated patient's pre-admission functional status and, comparing it to the patient's post-ad mission functional status now, I conclude that the pre-admission assessment was accurate. Patient's c ondition on admission supports the medical necessity of admission to IRF. It is safe to proceed with patient's therapy program. SIGNATURE PANEL: (CDT)
[2021-03-27] MEDS: ASCORBIC ACID 500 MG TABLET PO SCH (20:03)
[2021-03-27] MEDS: ATORVASTATIN 80 MG TAB PO SCH (20:03)
[2021-03-27] MEDS: carvediloL 6.25 MG TAB PO SCH (20:04)
[2021-03-27] MEDS: APIXABAN 2.5 MG TABLET PO SCH (20:04)
[2021-03-27] MEDS: DOCUSATE NA/SENNA CONC 1 TAB PO PRN (20:04)
[2021-03-27] MEDS: MELATONIN 3 MG TABLET PO SCH (20:04)
[2021-03-27 22:18] LABS: Urine Appearance CLOUDY (Clear); Urine Bilirubin NEGATIVE (Negative); Urine Blood 3+ (Negative); Urine Color YELLOW (Yellow); Urine Glucose NEGATIVE (Negative); Urine Protein TRACE (Negative); Urine Specific Gravity 1.015 (1.005-1.030); Urine Urobilinogen 0.2 mg/dL (0.2-1.0)
[2021-03-28 00:48] LABS: Urine Bacteria <20 /HPF (NONE SEEN); Urine Mucus SLIGHT /HPF (NONE SEEN); Urine RBC >50 /HPF (NONE SEEN); Urine Urothelial Cells <5 /HPF (NONE SEEN)
[2021-03-28 07:21] LABS: Absolute Lymphocytes (CBC) 1.9 K/uL (0.7-4.9); Hematocrit 39.1 % (39.6-49.0); MPV 9.3 fL (7.6-11.3); RBC Red Blood Cell Count 4.46 M/uL (4.33-5.43)
[2021-03-28] MEDS ORDERED: methylPREDNISolone 4 MG TAB PO ONE (07:30)
[2021-03-28 07:39] LABS: Albumin 2.3 g/dL (3.4-5.0); Potassium 4.1 mmol/L (3.5-5.1); Prealbumin 15.9 mg/dL (20-40)
[2021-03-28] MEDS: VITAMIN D 5,000 UNIT CAP PO SCH (07:58)
[2021-03-28] MEDS: APIXABAN 2.5 MG TABLET PO SCH ×2 (07:59→19:14)
[2021-03-28] MEDS: AZITHROMYCIN 250 MG TAB PO SCH (08:00)
[2021-03-28] MEDS ORDERED: VITAMIN D3 5000 UNIT PO SCH (08:00)
[2021-03-28] MEDS: ZINC SULFATE 220 MG CAP PO SCH (08:00)
[2021-03-28] MEDS: CYANOCOBALAMIN 1,000 MCG TAB PO SCH (08:00)
[2021-03-28] MEDS ORDERED: ZINC GLUCONATE 50 MG TAB PO SCH (08:00)
[2021-03-28] MEDS: carvediloL 6.25 MG TAB PO SCH ×2 (08:03→19:14)
[2021-03-28] MEDS: FUROSEMIDE 20 MG TABLET PO SCH (08:04)
[2021-03-28] MEDS: lisinopriL 5 MG TAB PO SCH (08:04)
[2021-03-28] MEDS: ASCORBIC ACID 500 MG TABLET PO SCH ×2 (08:08→19:15)
--- NOTE | 2021-03-28 17:35 | R.PN ---
PROGRESS NOTES ENCOUNTER DATE AND TIME: 03/28/2021 17:27 (CDT) NAME BRENT MCCLELLAN DATE OF : 1935 DATE OF ADMISSION: 03/27/2021 12:07 (CDT) Thrombosis of left middle cerebral artery, Post covid-19 syndromeCHIEF COMPLAINT: Stroke, aphasia, right sided weakness and numbness, post covid-19 syndrome SUBJECTIVE: Pt denied any depression. Pt denied any Shortness of Breath. WBC 8.8, Hgb 12.8, Plt 381, prealbumin 15.9, Cake Former 2.17, UA trace esterase, > 50 RBCs. Covid-19 positiv e. Max assistance in the parallel bars 8' x 3. Wheelchair 100' with moderate assistance. VITAL SIGNS Temperature: 97.6 F SBP/DBP: 112/58 Pulse: 58 Resp: 16 MEDICATION ALLERGIES: No Known Drug Allergies (NKDA) ENVIRONMENTAL ALLERGIES: None Known - Substance Allergies None Known - Other Allergies None Known NURSING: - Shower allowing shower - Bladder care per protocol - Skin care per protocol PRECAUTIONS: - Fall Precaution Bed alarm TABS alarm Wheel chair alarm - Weight Bearing Precaution WBAT right LE ACTIVITIES OOB only with supervision THERAPIES: - Dietary and Nutrition Adequate Nutrition. Nutritional Education. Nutritional Supplements. - Occupational Therapy Cognitive Retraining. Evaluate and Treat. ADL Training. Community Reintegration. Eating. Household Ta sks. Patient/Family Education. Transfer Training. UE ROM. UE Strengthening. Safety Awareness. Adaptiv e Equipment. - Speech Therapy Cognitive Training. Expressive Language Skills. Memory Strategies. Receptive Language Skills. Speech Intelligibility Training. - Physical Therapy Evaluate and Treat. Balance Training. Gait Training. LE ROM. LE Strengthening. Medical Equipment Asse ssment and Evaluation. Mobility Training. Patient/Family Education. Safety Awareness. Transfer Traini ng. Wheelchair Management. PHYSICAL EXAM - Gen Alert and awake Lying in bed No apparent distress Oriented to: person, time, and place - Skin No skin breakdown. No abnormalities - Eyes No abnormalities - ENMT No abnormalities - Neck No abnormalities - CVS RRR - Chest No abnormalities - Resp No wheezing - Abd Soft - GI Non distended Deferred - Campbell catheter, will remove in the AM. - Ext No significant edema - MSK 4+/5 weakness in right upper and 3/5 right lower extremity. - Neuro 4+/5 weakness in right upper and 3/5 right lower extremity. Expressive aphasia, dysarthria - Psych No abnormalities ASSESSMENT: Pt. is a 85 yo Right-handed male.On 03/05/2021 Pt. presented to [facility] with sudden onset of right-side weakness.On 03/05/2021 he was admitted to [facility] with diagnosis Thrombosis of lef t middle cerebral artery, Post covid-19 syndrome.His impairment category is Stroke 01 - Right Body ( Left Brain) (01.2).Pre-morbidly, Pt. was supervision Locomotion, Social Cognition, Safety Awareness, Transfers Control, and Balance; and he had good Endurance, Self-Care, Communication, and Sphincter Co ntrol.Currently, he has deficits of Locomotion, Social Cognition, Safety Awareness, Transfers Control , Sphincter Control, Balance, Self-Care, and Communication.Pt. is now referred to [facility] for acute in-patient rehabilitation in order to maximize patient's functional independ ence in activities of daily living, strength, ROM, and mobility.- Rehab Goal Patient has realistic goal of being discharged at assistance level 7-Ind to reside at Home with Fami ly/Relatives. MDM/PLAN: - Physical Therapy Weakness - to improve, our physical therapists will perform initial evaluation of pt's status upon ad mission and devise an individualized program for Aquatic Therapy, Neuromuscular Reeducation, and Stre ngthening Poor balance - to improve, our physical therapists will perform initial evaluation of pt's status upo n admission and devise an individualized program for Balance Training Inability to transfer - to improve, our physical therapists will perform initial evaluation of pt's s tatus upon admission and devise an individualized program for Bed mobility Need in caregiver upon discharge - to improve, our physical therapists will perform initial evaluatio n of pt's status upon admission and devise an individualized program for Caregiver Training Poor endurance - to improve, our physical therapists will perform initial evaluation of pt's status u debbie admission and devise an individualized program for Endurance Training Gait dysfunction - to improve, our physical therapists will perform initial evaluation of pt's status upon admission and devise an individualized program for Gait Training, and Wheel Chair mobility Need for home safety evaluation - to improve, our physical therapists will perform initial evaluation of pt's status upon admission and devise an individualized program for Home Evaluation New precaution - to improve, our physical therapists will perform initial evaluation of pt's status u debbie admission and devise an individualized program for Patient precaution education Edema - to improve, our physical therapists will perform initial evaluation of pt's status upon admis josiah and devise an individualized program for Elevation Training, and Lymphedema Therapy - Occupational Therapy Weakness - to improve, our occupation therapists will perform initial evaluation of pt's status upon admission and devise an individualized program for Aquatic Therapy, Balance, Endurance, UE ROM, and U E strengthening ADL deficits - to improve, our occupation therapists will perform initial evaluation of pt's status u debbie admission and devise an individualized program for Bathing, Bed mobility, Community Reintegration , Cooking, Dressing, Eating, Fine Motor Skills, Grooming, Homemaking, Kitchen Mobility, Laundry, Puja ent Education, Safety Awareness, Splinting - Positioning, Transfers(Toilet, Tub, Shower), and Wheel C hair Management Need for point of care specialist - to improve, our occupation therapists will perform initial evaluation of pt's s tatus upon admission and devise an individualized program for Caregiver Training Cognitive deficits - to improve, our occupation therapists will perform initial evaluation of pt's st atus upon admission and devise an individualized program for Cognition - orientation - Other See attached MAR (Medication Administration Record) - Diet Type Continue Regular - Diet - Liquid Texture Continue Regular - Tube Feed Continue N/A - Bladder care per protocol - Weight Bearing Precaution WBAT right LE - Fall Precaution Bed alarm TABS alarm Wheel chair alarm - Skin care per protocol - Diet - Solid Texture Continue Regular - Shower allowing shower for Dementia, TBI, Stroke, or others - Balance for Weakness - Bed mobility for ADL deficits - Cognition - orientation for Dementia - Dressing Status: indep for ADL deficits - Eating for ADL deficits - Grooming Status: indep for ADL deficits - Toilet Transfer for ADL deficits Status: indep - Bed to Chair Transfer SELECT Status: indep for ADL deficits - Tub Transfer for ADL deficits Status: indep - Hygiene for ADL deficits - Shower Transfer for ADL deficits Status: indep - Wheel Chair to Bed Transfer Status: indep for ADL deficits FUNCTIONAL STATUS: UPDATED AT WEEKLY TEAM CONFERENCE - Bladder Same accident frequency: 7-Ind - No accidents in the past 7 days - Bowel Same accident frequency: 7-Ind - No accidents in the past 7 days - Walking Same score based on distance walked: 0(N/A) - Wheelchair Same score based on distance traveled: 0(N/A) FUNCTIONAL STATUS: - Self-Care A. Eating modA B. Grooming maxA C. Bathing maxA D. Dressing - Upper modA E. Dressing - Lower maxA F. Toileting modA - Sphincter Control G. Bladder control Porfirio H. Bowel control Porfirio - Transfers Control I. Bed/Chair/Wheelchair maxA J. Toilet maxA K. Tub/Shower maxA - Locomotion L. Walk/Wheelchair (B) maxA M. Stairs ADNO - Communication N. Comprehension (B) maxA O. Expression (B) maxA - Social Cognition P. Social Interaction modA Q. Problem Solving maxA R. Memory modA - Endurance Poor - Balance Poor - Safety Awareness Poor QI SCORES: - Self-Care A. Eating 03-Partial/moderate assistance B. Oral hygiene 03-Partial/moderate assistance C. Toileting hygiene 02-Substantial/maximal assistance E. Shower/bathe self 02-Substantial/maximal assistance F. Upper body dressing 03-Partial/moderate assistance G. Lower body dressing 02-Substantial/maximal assistance H. Putting on/taking off footwear 88-Not attempted due to medical condition or safety concerns - Mobility A. Roll left and right 03-Partial/moderate assistance B. Sit to lying 02-Substantial/maximal assistance C. Lying to sitting on side of bed 03-Partial/moderate assistance D. Sit to stand 03-Partial/moderate assistance E. Chair/[id number]-bd-qjdue transfer F. Toilet transfer 02-Substantial/maximal assistance G. Car transfer 88-Not attempted due to medical condition or safety concerns I. Walk 10 feet 88-Not attempted due to medical condition or safety concerns J. Walk 50 feet with two turns 88-Not attempted due to medical condition or safety concerns K. Walk 150 feet 88-Not attempted due to medical condition or safety concerns L. Walking 10 feet on uneven surfaces 88-Not attempted due to medical condition or safety concerns M. 1 step (curb) 88-Not attempted due to medical condition or safety concerns N. 4 steps 88-Not attempted due to medical condition or safety concerns O. 12 steps 88-Not attempted due to medical condition or safety concerns P. Picking up object 88-Not attempted due to medical condition or safety concerns R. Wheel 50 feet with two turns 88-Not attempted due to medical condition or safety concerns S. Wheel 150 feet 88-Not attempted due to medical condition or safety concerns - Bladder and Bowel Bladder continence Bowel continence - Endurance Poor - Balance Poor - Safety Awareness Fair CURRENT [facility]. DEFICITS: Self-Care, Mobility, Endurance, Balance, and Safety Awareness SIGNATURE PANEL: (CDT)
[2021-03-28] MEDS: ENSURE HIGH PROTEIN 237 ML CAN PO SCH (19:14)
[2021-03-28] MEDS: ATORVASTATIN 80 MG TAB PO SCH (20:01)
[2021-03-28] MEDS: MELATONIN 3 MG TABLET PO SCH (20:02)
[2021-03-29] MEDS ORDERED: methylPREDNISolone 4 MG TAB PO ONE (07:30)
[2021-03-29] MEDS: AZITHROMYCIN 250 MG TAB PO SCH (08:00)
[2021-03-29] MEDS: ENSURE HIGH PROTEIN 237 ML CAN PO SCH ×2 (08:00→20:18)
[2021-03-29] MEDS: ASCORBIC ACID 500 MG TABLET PO SCH ×2 (09:18→20:18)
[2021-03-29] MEDS: lisinopriL 5 MG TAB PO SCH (09:19)
[2021-03-29] MEDS: VITAMIN D 5,000 UNIT CAP PO SCH (09:20)
[2021-03-29] MEDS: CYANOCOBALAMIN 1,000 MCG TAB PO SCH (09:20)
[2021-03-29] MEDS: FUROSEMIDE 20 MG TABLET PO SCH (09:20)
[2021-03-29] MEDS: APIXABAN 2.5 MG TABLET PO SCH ×2 (09:20→20:17)
[2021-03-29] MEDS: ZINC SULFATE 220 MG CAP PO SCH (09:21)
[2021-03-29] MEDS: carvediloL 6.25 MG TAB PO SCH ×2 (09:21→20:00)
--- NOTE | 2021-03-29 09:34 | P.RH.PN ---
Estimated Length of Stay: 20 Expected Discharge Date: 04/16/21 Discharge Disposition Plan: Home Family Support: Yes Longterm Goal: Mobility, Transfers, Self Care Vital Signs: Last Vital Signs Temp 96.4 F L 03/28/21 19:26 Pulse 63 03/29/21 09:21 Resp 16 03/28/21 19:26 BP 117/52 L 03/29/21 09:21 Pulse Ox 96 03/28/21 19:26 Laboratory: Laboratory Last Values WBC 8.80 K/uL (4.3-10.9) 03/28/21 06:13 RBC 4.46 M/uL (4.33-5.43) 03/28/21 06:13 Hgb 12.8 g/dL (13.6-17.9) L 03/28/21 06:13 Hct 39.1 % (39.6-49.0) L 03/28/21 06:13 MCV 87.7 fL (80-100) 03/28/21 06:13 MCH 28.8 pg (27.0-35.0) 03/28/21 06:13 MCHC 32.8 g/dL (32.0-36.0) 03/28/21 06:13 RDW 14.1 % (12.1-15.2) 03/28/21 06:13 Plt Count 381 K/uL (152-406) 03/28/21 06:13 MPV 9.3 fL (7.6-11.3) 03/28/21 06:13 Neutrophils % 59.8 % (41.7-73.7) 03/28/21 06:13 Lymphocytes % 22.0 % (15.3-44.8) 03/28/21 06:13 Monocytes % 12.1 % (3.3-12.3) 03/28/21 06:13 Eosinophils % 5.1 % (0-4.4) H 03/28/21 06:13 Basophils % 1.0 % (0-1.3) 03/28/21 06:13 Absolute Neutrophils 5.2 K/uL (1.8-8.0) 03/28/21 06:13 Absolute Lymphocytes 1.9 K/uL (0.7-4.9) 03/28/21 06:13 Absolute Monocytes 1.1 K/uL (0.1-1.3) 03/28/21 06:13 Absolute Eosinophils 0.4 K/uL (0-0.5) 03/28/21 06:13 Absolute Basophils 0.1 K/uL (0-0.5) 03/28/21 06:13 Sodium 144 mmol/L (136-145) 03/28/21 06:13 Potassium 4.1 mmol/L (3.5-5.1) 03/28/21 06:13 Chloride 115 mmol/L (98-107) H 03/28/21 06:13 Carbon Dioxide 20 mmol/L (21-32) L 03/28/21 06:13 BUN 54 mg/dL (7-18) H 03/28/21 06:13 Creatinine 2.17 mg/dL (0.55-1.3) H 03/28/21 06:13 Estimated GFR 29 mL/min (=/>90) L 03/28/21 06:13 Glucose 107 mg/dL (74-106) H 03/28/21 06:13 Calcium 8.8 mg/dL (8.5-10.1) 03/28/21 06:13 Magnesium 2.0 mg/dL (1.8-2.4) 03/28/21 06:13 Albumin 2.3 g/dL (3.4-5.0) L 03/28/21 06:13 Prealbumin 15.9 mg/dL (20-40) L 03/28/21 06:13 Urine Color Yellow (Yellow) 03/27/21 20:18 Urine Appearance Cloudy (Clear) 03/27/21 20:18 Urine pH 5.0 (5.0-7.0) 03/27/21 20:18 Ur Specific [place] 1.015 (1.005-1.030) 03/27/21 20:18 Glucose (UA)(Auto) Negative (Negative) 03/27/21 20:18 Urine Ketones Negative (Negative) 03/27/21 20:18 Urine Blood 3+ (Negative) H 03/27/21 20:18 Urine Nitrite Negative (Negative) 03/27/21 20:18 Urine Bilirubin Negative (Negative) 03/27/21 20:18 Urine Urobilinogen 0.2 mg/dL (0.2-1.0) 03/27/21 20:18 Ur Leukocyte Esterase Trace (Negative) H 03/27/21 20:18 Urine RBC >50 /HPF (NONE SEEN) H 03/27/21 20:18 Urine WBC <5 /HPF (<5) 03/27/21 20:18 Ur Squamous Epith Cells CERTIFIED COATINGS INSPECTOR 03/27/21 20:18 Ur Urothelial Cells <5 /HPF (NONE SEEN) 03/27/21 20:18 Urine Bacteria <20 /HPF (NONE SEEN) 03/27/21 20:18 Urine Mucus Slight /HPF (NONE SEEN) 03/27/21 20:18 Urine Culture Reflexed Reflexed 03/27/21 20:18 Urine Total Protein Trace (Negative) H 03/27/21 20:18 SARS-CoV-2 Rap RNA(RT-PCR) Positive (NEGATIVE) A 03/27/21 13:55 Weight: 163 lb 9.6 oz Wound Present: No Physician Update: He is significantly affected with expression, ADLs, transfers, bed mobility and ambulation. He follows commands fairly well. He has very poor hearing on the left. Comment: No skin breakdown Functional Improvement: Patient has just begun therapy in Inpatient Rehab, however presents w/ potential ability to progress well. Patient is QAGAN TAY[place], and requires elevated tone/writing board for instruction delivery, and repeated instruction and TC. Summary: Patient's care plan and rn long term care goals have been reviewed and revised as necessary. Please see the Rehabilitation Signature page for all necessary signatures.
[2021-03-29] MEDS: DOCUSATE NA/SENNA CONC 1 TAB PO PRN (20:18)
[2021-03-29] MEDS: ATORVASTATIN 80 MG TAB PO SCH (20:18)
[2021-03-29] MEDS: MELATONIN 3 MG TABLET PO SCH (21:00)
[2021-03-30] MEDS ORDERED: methylPREDNISolone 4 MG TAB PO ONE (07:30)
[2021-03-30] MEDS: lisinopriL 5 MG TAB PO SCH (08:00)
[2021-03-30] MEDS: DULOXETINE 20 MG CAP PO SCH (08:16)
[2021-03-30] MEDS: carvediloL 6.25 MG TAB PO SCH ×2 (08:16→19:12)
[2021-03-30] MEDS: ASCORBIC ACID 500 MG TABLET PO SCH ×2 (08:16→19:13)
[2021-03-30] MEDS: AZITHROMYCIN 250 MG TAB PO SCH (08:16)
[2021-03-30] MEDS: FUROSEMIDE 20 MG TABLET PO SCH (08:17)
[2021-03-30] MEDS: VITAMIN D 5,000 UNIT CAP PO SCH (08:18)
[2021-03-30] MEDS: APIXABAN 2.5 MG TABLET PO SCH ×2 (08:18→19:12)
[2021-03-30] MEDS: CYANOCOBALAMIN 1,000 MCG TAB PO SCH (08:18)
[2021-03-30] MEDS: ENSURE HIGH PROTEIN 237 ML CAN PO SCH ×2 (08:19→19:12)
[2021-03-30] MEDS: ZINC SULFATE 220 MG CAP PO SCH (08:20)
[2021-03-30] MEDS: ATORVASTATIN 80 MG TAB PO SCH (19:12)
[2021-03-30] MEDS: MELATONIN 3 MG TABLET PO SCH (19:16)
[2021-03-31] MEDS ORDERED: methylPREDNISolone 4 MG TAB PO ONE (07:30)
[2021-03-31] MEDS: lisinopriL 5 MG TAB PO SCH (07:39)
[2021-03-31] MEDS: AZITHROMYCIN 250 MG TAB PO SCH (08:00)
[2021-03-31] MEDS: ZINC SULFATE 220 MG CAP PO SCH (08:00)
[2021-03-31] MEDS: ENSURE HIGH PROTEIN 237 ML CAN PO SCH ×2 (08:33→20:00)
[2021-03-31] MEDS: carvediloL 6.25 MG TAB PO SCH ×2 (08:33→20:00)
[2021-03-31] MEDS: ASCORBIC ACID 500 MG TABLET PO SCH ×2 (08:33→20:05)
[2021-03-31] MEDS: FUROSEMIDE 20 MG TABLET PO SCH (08:34)
[2021-03-31] MEDS: CYANOCOBALAMIN 1,000 MCG TAB PO SCH (08:34)
[2021-03-31] MEDS: VITAMIN D 5,000 UNIT CAP PO SCH (08:34)
[2021-03-31] MEDS: APIXABAN 2.5 MG TABLET PO SCH ×2 (08:34→20:05)
[2021-03-31] MEDS: DULOXETINE 20 MG CAP PO SCH (08:34)
[2021-03-31] MEDS: MELATONIN 3 MG TABLET PO SCH (20:05)
[2021-03-31] MEDS: ATORVASTATIN 80 MG TAB PO SCH (20:05)
[2021-04-01] MEDS ORDERED: methylPREDNISolone 4 MG TAB PO ONE (07:30)
[2021-04-01] MEDS: carvediloL 6.25 MG TAB PO SCH ×2 (08:00→19:46)
[2021-04-01] MEDS: lisinopriL 5 MG TAB PO SCH (08:00)
[2021-04-01] MEDS: VITAMIN D 5,000 UNIT CAP PO SCH (08:20)
[2021-04-01] MEDS: FUROSEMIDE 20 MG TABLET PO SCH (08:21)
[2021-04-01] MEDS: APIXABAN 2.5 MG TABLET PO SCH ×2 (08:21→19:46)
[2021-04-01] MEDS: DULOXETINE 20 MG CAP PO SCH (08:21)
[2021-04-01] MEDS: ASCORBIC ACID 500 MG TABLET PO SCH ×2 (08:21→19:46)
[2021-04-01] MEDS: CYANOCOBALAMIN 1,000 MCG TAB PO SCH (08:22)
[2021-04-01] MEDS: ENSURE HIGH PROTEIN 237 ML CAN PO SCH ×2 (08:23→19:47)
[2021-04-01] MEDS: AZITHROMYCIN 250 MG TAB PO SCH (08:24)
[2021-04-01] MEDS: ZINC SULFATE 220 MG CAP PO SCH (08:24)
--- NOTE | 2021-04-01 15:27 | FAST ---
[employer] FORM SHIFT START DATE/TIME: 04/01/2021 07:00 (CDT) SHIFT END DATE/TIME: 04/01/2021 19:00 (CDT) NAME BRENT MCCLELLAN DATE OF : 1935 DATE OF ADMISSION: 03/27/2021 12:07 (CDT) PHONE: AGE: 85 N# [id number] GENDER: Male ENCOUNTER PHYSICIAN: Dr. Domo Bland M.D. ADMISSION DIAGNOSIS: - Stroke 01 - Right Body (Left Brain) (01.2) Thrombosis of left middle cerebral artery, Post covid-19 syndrome. EATING: EATING - STEP 1: Does the patient complete the activity by him/herself with no assistance (physical, verbal/nonverbal cueing, setup/clean-up)? No. EATING - STEP 2: Does the patient need only setup/clean-up assistance from one helper? No. EATING - STEP 3: Does the patient need only verbal/nonverbal cueing or touching/steadying/contact guard assistance fro m one helper? Yes. 1. [id number] ADMISSION PERFORMANCE: Supervision or touching assistance CODE: 04 ORAL HYGIENE: Not assessed/no information CODE: - TOILETING HYGIENE: Patient refused CODE: 07 BATHING: Not assessed/no information CODE: - DRESSING - UPPER BODY: DRESSING - UPPER BODY - STEP 1: Does the patient complete the activity by him/herself with no assistance (physical, verbal/nonverbal cueing, setup/clean-up)? No. DRESSING - UPPER BODY - STEP 2: Does the patient need only setup/clean-up assistance from one helper? No. DRESSING - UPPER BODY - STEP 3: Does the patient need only verbal/nonverbal cueing or touching/steadying/contact guard assistance fro m one helper? Yes. 1. [id number] ADMISSION PERFORMANCE: Supervision or touching assistance CODE: 04 DRESSING - LOWER BODY: DRESSING - LOWER BODY - STEP 1: Does the patient complete the activity by him/herself with no assistance (physical, verbal/nonverbal cueing, setup/clean-up)? No. DRESSING - LOWER BODY - STEP 2: Does the patient need only setup/clean-up assistance from one helper? No. DRESSING - LOWER BODY - STEP 3: Does the patient need only verbal/nonverbal cueing or touching/steadying/contact guard assistance fro m one helper? No. DRESSING - LOWER BODY - STEP 4: Does the patient need physical assistance - for example lifting or trunk support from one helper - wi th the helper providing less than half of the effort? No. DRESSING - LOWER BODY - STEP 5: Does the patient need physical assistance - for example lifting or trunk support from one helper - wi th the helper providing more than half of the effort? Yes. 1. [id number] ADMISSION PERFORMANCE: Substantial/maximal assistance CODE: 02 PUTTING ON/TAKING OFF FOOTWEAR: FOOTWEAR - STEP 1: Does the patient complete the activity by him/herself with no assistance (physical, verbal/nonverbal cueing, setup/clean-up)? No. FOOTWEAR - STEP 2: Does the patient need only setup/clean-up assistance from one helper? No. FOOTWEAR - STEP 3: Does the patient need only verbal/nonverbal cueing or touching/steadying/contact guard assistance fro m one helper? No. FOOTWEAR - STEP 4: Does the patient need physical assistance - for example lifting or trunk support from one helper - wi th the helper providing less than half of the effort? No. FOOTWEAR - STEP 5: Does the patient need physical assistance - for example lifting or trunk support from one helper - wi th the helper providing more than half of the effort? Yes. 1. [id number] ADMISSION PERFORMANCE: Substantial/maximal assistance CODE: 02 ROLL LEFT AND RIGHT: ROLL LEFT AND RIGHT - STEP 1: Does the patient complete the activity by him/herself with no assistance (physical, verbal/nonverbal cueing, setup/clean-up)? No. ROLL LEFT AND RIGHT - STEP 2: Does the patient need only setup/clean-up assistance from one helper? No. ROLL LEFT AND RIGHT - STEP 3: Does the patient need only verbal/nonverbal cueing or touching/steadying/contact guard assistance fro m one helper? Yes. 1. [id number] ADMISSION PERFORMANCE: Supervision or touching assistance CODE: 04 SIT TO LYING: SIT TO LYING - STEP 1: Does the patient complete the activity by him/herself with no assistance (physical, verbal/nonverbal cueing, setup/clean-up)? No. SIT TO LYING - STEP 2: Does the patient need only setup/clean-up assistance from one helper? No. SIT TO LYING - STEP 3: Does the patient need only verbal/nonverbal cueing or touching/steadying/contact guard assistance fro m one helper? Yes. 1. [id number] ADMISSION PERFORMANCE: Supervision or touching assistance CODE: 04 LYING TO SITTING: LYING TO SITTING ON SIDE OF BED - STEP 1: Does the patient complete the activity by him/herself with no assistance (physical, verbal/nonverbal cueing, setup/clean-up)? No. LYING TO SITTING ON SIDE OF BED - STEP 2: Does the patient need only setup/clean-up assistance from one helper? No. LYING TO SITTING ON SIDE OF BED - STEP 3: Does the patient need only verbal/nonverbal cueing or touching/steadying/contact guard assistance fro m one helper? No. LYING TO SITTING ON SIDE OF BED - STEP 4: Does the patient need physical assistance - for example lifting or trunk support from one helper - wi th the helper providing less than half of the effort? Yes. 1. [id number] ADMISSION PERFORMANCE: Partial/moderate assistance CODE: 03 SIT TO STAND: SIT TO STAND - STEP 1: Does the patient complete the activity by him/herself with no assistance (physical, verbal/nonverbal cueing, setup/clean-up)? No. SIT TO STAND - STEP 2: Does the patient need only setup/clean-up assistance from one helper? No. SIT TO STAND - STEP 3: Does the patient need only verbal/nonverbal cueing or touching/steadying/contact guard assistance fro m one helper? No. SIT TO STAND - STEP 4: Does the patient need physical assistance - for example lifting or trunk support from one helper - wi th the helper providing less than half of the effort? No. SIT TO STAND - STEP 5: Does the patient need physical assistance - for example lifting or trunk support from one helper - wi th the helper providing more than half of the effort? Yes. 1. [id number] ADMISSION PERFORMANCE: Substantial/maximal assistance CODE: 02 TRANSFERS: BED, CHAIR: CHAIR/[id number] TRANSFER - STEP 1: Does the patient complete the activity by him/herself with no assistance (physical, verbal/nonverbal cueing, setup/clean-up)? No. CHAIR/[id number] TRANSFER - STEP 2: Does the patient need only setup/clean-up assistance from one helper? No. CHAIR/[id number] TRANSFER - STEP 3: Does the patient need only verbal/nonverbal cueing or touching/steadying/contact guard assistance fro m one helper? No. CHAIR/[id number] TRANSFER - STEP 4: Does the patient need physical assistance - for example lifting or trunk support from one helper - wi th the helper providing less than half of the effort? No. CHAIR/[id number] TRANSFER - STEP 5: Does the patient need physical assistance - for example lifting or trunk support from one helper - wi th the helper providing more than half of the effort? Yes. 1. [id number] ADMISSION PERFORMANCE: Substantial/maximal assistance CODE: 02 TRANSFER TOILET: Not assessed/no information CODE: - TRANSFERS: CAR: Not assessed/no information CODE: - WALK 10 FEET: Not assessed/no information CODE: - 1 STEP (CURB): Not assessed/no information CODE: - PICKING UP OBJECT: Not assessed/no information CODE: - DOES THE PATIENT USE A WHEELCHAIR/SCOOTER? Q1. DOES THE PATIENT USE A WHEELCHAIR/SCOOTER?: Yes CODE: 1 WHEEL 50 FEET WITH TWO TURNS: WHEEL 50 FEET WITH TWO TURNS - STEP 1: Does the patient complete the activity by him/herself with no assistance (physical, verbal/nonverbal cueing, setup/clean-up)? No. WHEEL 50 FEET WITH TWO TURNS - STEP 2: Does the patient need only setup/clean-up assistance from one helper? No. WHEEL 50 FEET WITH TWO TURNS - STEP 3: Does the patient need only verbal/nonverbal cueing or touching/steadying/contact guard assistance fro m one helper? No. WHEEL 50 FEET WITH TWO TURNS - STEP 4: Does the patient need physical assistance - for example lifting or trunk support from one helper - wi th the helper providing less than half of the effort? Yes. 1. [id number] ADMISSION PERFORMANCE: Partial/moderate assistance CODE: 03 INDICATE THE TYPE OF WHEELCHAIR/SCOOTER USED: RR1. INDICATE THE TYPE OF WHEELCHAIR/SCOOTER USED.: Manual CODE: 1 WHEEL 150 FEET: Not assessed/no information CODE: - INDICATE THE TYPE OF WHEELCHAIR/SCOOTER USED: SS1. INDICATE THE TYPE OF WHEELCHAIR/SCOOTER USED.: Manual CODE: 1 BLADDER AND BOWEL: H350. BLADDER CONTINENCE (3-DAY ASSESSMENT PERIOD): Always incontinent CODE: 4 H400. BOWEL CONTINENCE (3-DAY ASSESSMENT PERIOD): Always incontinent (no episodes of continent bowel movements) CODE: 3 SIGNATURE PANEL: The following modified sections: 1. [id number] Admission Performance, 1. [id number] Admission Performance, 1. [id number] Admission Performance, 1. [id number] Admission Performance, 1. [id number] Admission Performance, 1. [id number] Admission Performance, 1. [id number] Admission Performance, 1. [id number] Admission Performance , 1. [id number] Admission Performance, 1. [id number] Admission Performance, 1. [id number] Admission Performanc e, 1. [id number] Admission Performance, Q1. Does the patient use a wheelchair/scooter?, 1. [id number] Admis josiah Performance, RR1. Indicate the type of wheelchair/scooter used., Code, SS1. Indicate the type of wheelchair/scooter used., H350. Bladder Continence (3-day assessment period), H400. Bowel Continence (3-day assessment period) were [electronically] signed by Janine Huynh C.N.A. on ThuApr 01 2021 15 :26:53 GMT-0500 (Central Daylight Time)
--- NOTE | 2021-04-01 18:37 | R.PN ---
PROGRESS NOTES ENCOUNTER DATE AND TIME: 04/01/2021 18:33 (CDT) NAME BRENT MCCLELLAN DATE OF : 1935 DATE OF ADMISSION: 03/27/2021 12:07 (CDT) Thrombosis of left middle cerebral artery, Post covid-19 syndromeCHIEF COMPLAINT: Stroke, aphasia, right sided weakness and numbness, post covid-19 syndrome SUBJECTIVE: Pt denied any depression. Pt denied any Shortness of Breath. WBC 8.8, Hgb 12.8, Plt 381, prealbumin 15.9, Tax Accounting Assistant 2.17, UA trace esterase, > 50 RBCs. Covid-19 positiv e. Ambulated 45' with contact guard assistance using a rolling walker. Self-propelled wheelchair 150' w ith minimum assistance. VITAL SIGNS Temperature: 98.0 F SBP/DBP: 104/47 Pulse: 64 Resp: 16 MEDICATION ALLERGIES: No Known Drug Allergies (NKDA) ENVIRONMENTAL ALLERGIES: None Known - Substance Allergies None Known - Other Allergies None Known NURSING: - Shower allowing shower - Bladder care per protocol - Skin care per protocol PRECAUTIONS: - Fall Precaution Bed alarm TABS alarm Wheel chair alarm - Weight Bearing Precaution WBAT right LE ACTIVITIES OOB only with supervision THERAPIES: - Dietary and Nutrition Adequate Nutrition. Nutritional Education. Nutritional Supplements. - Occupational Therapy Cognitive Retraining. Evaluate and Treat. ADL Training. Community Reintegration. Eating. Household Ta sks. Patient/Family Education. Transfer Training. UE ROM. UE Strengthening. Safety Awareness. Adapt[employer] e Equipment. - Speech Therapy Cognitive Training. Expressive Language Skills. Memory Strategies. Receptive Language Skills. Speech Intelligibility Training. - Physical Therapy Evaluate and Treat. Balance Training. Gait Training. LE ROM. LE Strengthening. Medical Equipment Asse ssment and Evaluation. Mobility Training. Patient/Family Education. Safety Awareness. Transfer Traini ng. Wheelchair Management. PHYSICAL EXAM - Gen Alert and awake Lying in bed No apparent distress Oriented to: person, time, and place - Skin No skin breakdown. No abnormalities - Eyes No abnormalities - ENMT No abnormalities - Neck No abnormalities - CVS RRR - Chest No abnormalities - Resp No wheezing - Abd Soft - GI Non distended Deferred - Campbell catheter, will remove in the AM. - Ext No significant edema - MSK 4+/5 weakness in right upper and 3/5 right lower extremity. - Neuro 4+/5 weakness in right upper and 3/5 right lower extremity. Expressive aphasia, dysarthria - Psych No abnormalities ASSESSMENT: Pt. is a 85 yo Right-handed male.On 03/05/2021 Pt. presented to [facility] with sudden onset of right-side weakness.On 03/05/2021 he was admitted to [facility] with diagnosis Thrombosis of lef t middle cerebral artery, Post covid-19 syndrome.His impairment category is Stroke 01 - Right Body ( Left Brain) (01.2).Pre-morbidly, Pt. was supervision Locomotion, Social Cognition, Safety Awareness, Transfers Control, and Balance; and he had good Endurance, Self-Care, Communication, and Sphincter Co ntrol.Currently, he has deficits of Locomotion, Social Cognition, Safety Awareness, Transfers Control , Sphincter Control, Balance, Self-Care, and Communication.Pt. is now referred to [facility] for acute in-patient rehabilitation in order to maximize patient's functional independ ence in activities of daily living, strength, ROM, and mobility.- Rehab Goal Patient has realistic goal of being discharged at assistance level 7-Ind to reside at Home with Fami ly/Relatives. MDM/PLAN: - Physical Therapy Weakness - to improve, our physical therapists will perform initial evaluation of pt's status upon a dmission and devise an individualized program for Aquatic Therapy, Neuromuscular Reeducation, and Str engthening Poor balance - to improve, our physical therapists will perform initial evaluation of pt's status up on admission and devise an individualized program for Balance Training Inability to transfer - to improve, our physical therapists will perform initial evaluation of pt's status upon admission and devise an individualized program for Bed mobility Need in caregiver upon discharge - to improve, our physical therapists will perform initial evaluati on of pt's status upon admission and devise an individualized program for Caregiver Training Poor endurance - to improve, our physical therapists will perform initial evaluation of pt's status upon admission and devise an individualized program for Endurance Training Gait dysfunction - to improve, our physical therapists will perform initial evaluation of pt's statu s upon admission and devise an individualized program for Gait Training, and Wheel Chair mobility Need for home safety evaluation - to improve, our physical therapists will perform initial evaluatio n of pt's status upon admission and devise an individualized program for Home Evaluation New precaution - to improve, our physical therapists will perform initial evaluation of pt's status upon admission and devise an individualized program for Patient precaution education Edema - to improve, our physical therapists will perform initial evaluation of pt's status upon admi ssion and devise an individualized program for Elevation Training, and Lymphedema Therapy - Occupational Therapy Weakness - to improve, our occupation therapists will perform initial evaluation of pt's status upon admission and devise an individualized program for Aquatic Therapy, Balance, Endurance, UE ROM, and UE strengthening ADL deficits - to improve, our occupation therapists will perform initial evaluation of pt's status upon admission and devise an individualized program for Bathing, Bed mobility, Community Reintegratio n, Cooking, Dressing, Eating, Fine Motor Skills, Grooming, Homemaking, Kitchen Mobility, Laundry, Pat ient Education, Safety Awareness, Splinting - Positioning, Transfers(Toilet, Tub, Shower), and Wheel Chair Management Need for children's zoo caretaker - to improve, our occupation therapists will perform initial evaluation of pt's status upon admission and devise an individualized program for Caregiver Training Cognitive deficits - to improve, our occupation therapists will perform initial evaluation of pt's s tatus upon admission and devise an individualized program for Cognition - orientation - Other See attached MAR (Medication Administration Record) - Diet Type Continue Regular - Diet - Liquid Texture Continue Regular - Tube Feed Continue N/A - Bladder care per protocol - Weight Bearing Precaution WBAT right LE - Fall Precaution Bed alarm TABS alarm Wheel chair alarm - Skin care per protocol - Diet - Solid Texture Continue Regular - Shower allowing shower for Dementia, TBI, Stroke, or others - Balance for Weakness - Bed mobility for ADL deficits - Cognition - orientation for Dementia - Dressing Status: indep for ADL deficits - Eating for ADL deficits - Grooming Status: indep for ADL deficits - Toilet Transfer for ADL deficits Status: indep - Bed to Chair Transfer SELECT Status: indep for ADL deficits - Tub Transfer for ADL deficits Status: indep - Hygiene for ADL deficits - Shower Transfer for ADL deficits Status: indep - Wheel Chair to Bed Transfer Status: indep for ADL deficits FUNCTIONAL STATUS: UPDATED AT WEEKLY TEAM CONFERENCE - Bladder Same accident frequency: 7-Ind - No accidents in the past 7 days - Bowel Same accident frequency: 7-Ind - No accidents in the past 7 days - Walking Same score based on distance walked: 0(N/A) - Wheelchair Same score based on distance traveled: 0(N/A) FUNCTIONAL STATUS: - Self-Care A. Eating modA B. Grooming maxA C. Bathing maxA D. Dressing - Upper modA E. Dressing - Lower maxA F. Toileting modA - Sphincter Control G. Bladder control Porfirio H. Bowel control Porfirio - Transfers Control I. Bed/Chair/Wheelchair maxA J. Toilet maxA K. Tub/Shower maxA - Locomotion L. Walk/Wheelchair (B) maxA M. Stairs ADNO - Communication N. Comprehension (B) maxA O. Expression (B) maxA - Social Cognition P. Social Interaction modA Q. Problem Solving maxA R. Memory modA - Endurance Poor - Balance Poor - Safety Awareness Poor QI SCORES: - Self-Care A. Eating 03-Partial/moderate assistance B. Oral hygiene 03-Partial/moderate assistance C. Toileting hygiene 02-Substantial/maximal assistance E. Shower/bathe self 02-Substantial/maximal assistance F. Upper body dressing 03-Partial/moderate assistance G. Lower body dressing 02-Substantial/maximal assistance H. Putting on/taking off footwear 88-Not attempted due to medical condition or safety concerns - Mobility A. Roll left and right 03-Partial/moderate assistance B. Sit to lying 02-Substantial/maximal assistance C. Lying to sitting on side of bed 03-Partial/moderate assistance D. Sit to stand 03-Partial/moderate assistance E. Chair/trh-gs-atsse transfer F. Toilet transfer 02-Substantial/maximal assistance G. Car transfer 88-Not attempted due to medical condition or safety concerns I. Walk 10 feet 88-Not attempted due to medical condition or safety concerns J. Walk 50 feet with two turns 88-Not attempted due to medical condition or safety concerns K. Walk 150 feet 88-Not attempted due to medical condition or safety concerns L. Walking 10 feet on uneven surfaces 88-Not attempted due to medical condition or safety concerns M. 1 step (curb) 88-Not attempted due to medical condition or safety concerns N. 4 steps 88-Not attempted due to medical condition or safety concerns O. 12 steps 88-Not attempted due to medical condition or safety concerns P. Picking up object 88-Not attempted due to medical condition or safety concerns R. Wheel 50 feet with two turns 88-Not attempted due to medical condition or safety concerns S. Wheel 150 feet 88-Not attempted due to medical condition or safety concerns - Bladder and Bowel Bladder continence Bowel continence - Endurance Poor - Balance Poor - Safety Awareness Fair CURRENT [facility]. DEFICITS: Self-Care, Mobility, Endurance, Balance, and Safety Awareness SIGNATURE PANEL: (CDT)
[2021-04-01] MEDS: MELATONIN 3 MG TABLET PO SCH (19:46)
[2021-04-01] MEDS: ATORVASTATIN 80 MG TAB PO SCH (19:46)
[2021-04-02] MEDS: lisinopriL 5 MG TAB PO SCH (07:54)
[2021-04-02] MEDS: APIXABAN 2.5 MG TABLET PO SCH ×2 (07:54→20:30)
[2021-04-02] MEDS: ASCORBIC ACID 500 MG TABLET PO SCH ×2 (07:54→20:30)
[2021-04-02] MEDS: ZINC SULFATE 220 MG CAP PO SCH (07:54)
[2021-04-02] MEDS: VITAMIN D 5,000 UNIT CAP PO SCH (07:54)
[2021-04-02] MEDS: CYANOCOBALAMIN 1,000 MCG TAB PO SCH (07:54)
[2021-04-02] MEDS: DULOXETINE 20 MG CAP PO SCH (07:55)
[2021-04-02] MEDS: ENSURE HIGH PROTEIN 237 ML CAN PO SCH ×2 (07:55→20:30)
[2021-04-02] MEDS: carvediloL 6.25 MG TAB PO SCH ×2 (07:55→20:29)
[2021-04-02] MEDS: FUROSEMIDE 20 MG TABLET PO SCH (07:55)
[2021-04-02] MEDS: AZITHROMYCIN 250 MG TAB PO SCH (07:56)
[2021-04-02] MEDS ORDERED: LOPERAMIDE HCL 2 MG CAPSULE PO PRN (11:00)
--- NOTE | 2021-04-02 18:05 | R.PN ---
PROGRESS NOTES ENCOUNTER DATE AND TIME: 04/02/2021 18:02 (CDT) NAME BRENT MCCLELLAN DATE OF : 1935 DATE OF ADMISSION: 03/27/2021 12:07 (CDT) Thrombosis of left middle cerebral artery, Post covid-19 syndromeCHIEF COMPLAINT: Stroke, aphasia, right sided weakness and numbness, post covid-19 syndrome SUBJECTIVE: Pt denied any depression. Pt denied any Shortness of Breath. WBC 8.8, Hgb 12.8, Plt 381, prealbumin 15.9, Brand Ambassador 2.17, UA trace esterase, > 50 RBCs. Covid-19 positiv e. Ambulated 73' with contact guard assistance using a rolling walker. Self-propelled wheelchair 200' w ith minimum assistance. VITAL SIGNS Temperature: 97.0 F SBP/DBP: 120/51 Pulse: 64 Resp: 16 MEDICATION ALLERGIES: No Known Drug Allergies (NKDA) ENVIRONMENTAL ALLERGIES: None Known - Substance Allergies None Known - Other Allergies None Known NURSING: - Shower allowing shower - Bladder care per protocol - Skin care per protocol PRECAUTIONS: - Fall Precaution Bed alarm TABS alarm Wheel chair alarm - Weight Bearing Precaution WBAT right LE ACTIVITIES OOB only with supervision THERAPIES: - Dietary and Nutrition Adequate Nutrition. Nutritional Education. Nutritional Supplements. - Occupational Therapy Cognitive Retraining. Evaluate and Treat. ADL Training. Community Reintegration. Eating. Household Ta sks. Patient/Family Education. Transfer Training. UE ROM. UE Strengthening. Safety Awareness. Adaptiv e Equipment. - Speech Therapy Cognitive Training. Expressive Language Skills. Memory Strategies. Receptive Language Skills. Speech Intelligibility Training. - Physical Therapy Evaluate and Treat. Balance Training. Gait Training. LE ROM. LE Strengthening. Medical Equipment Asse ssment and Evaluation. Mobility Training. Patient/Family Education. Safety Awareness. Transfer Traini ng. Wheelchair Management. PHYSICAL EXAM - Gen Alert and awake Lying in bed No apparent distress Oriented to: person, time, and place - Skin No skin breakdown. No abnormalities - Eyes No abnormalities - ENMT No abnormalities - Neck No abnormalities - CVS RRR - Chest No abnormalities - Resp No wheezing - Abd Soft - GI Non distended Deferred - Campbell catheter, will remove in the AM. - Ext No significant edema - MSK 4+/5 weakness in right upper and 3/5 right lower extremity. - Neuro 4+/5 weakness in right upper and 3/5 right lower extremity. Expressive aphasia, dysarthria - Psych No abnormalities ASSESSMENT: Pt. is a 85 yo Right-handed male.On 03/05/2021 Pt. presented to [facility] with sudden onset of right-side weakness.On 03/05/2021 he was admitted to [facility] with diagnosis Thrombosis of lef t middle cerebral artery, Post covid-19 syndrome.His impairment category is Stroke 01 - Right Body ( Left Brain) (01.2).Pre-morbidly, Pt. was supervision Locomotion, Social Cognition, Safety Awareness, Transfers Control, and Balance; and he had good Endurance, Self-Care, Communication, and Sphincter Co ntrol.Currently, he has deficits of Locomotion, Social Cognition, Safety Awareness, Transfers Control , Sphincter Control, Balance, Self-Care, and Communication.Pt. is now referred to [facility] for acute in-patient rehabilitation in order to maximize patient's functional independ ence in activities of daily living, strength, ROM, and mobility.- Rehab Goal Patient has realistic goal of being discharged at assistance level 7-Ind to reside at Home with Fami ly/Relatives. MDM/PLAN: - Physical Therapy Weakness - to improve, our physical therapists will perform initial evaluation of pt's status upon a dmission and devise an individualized program for Aquatic Therapy, Neuromuscular Reeducation, and Str engthening Poor balance - to improve, our physical therapists will perform initial evaluation of pt's status up on admission and devise an individualized program for Balance Training Inability to transfer - to improve, our physical therapists will perform initial evaluation of pt's status upon admission and devise an individualized program for Bed mobility Need in caregiver upon discharge - to improve, our physical therapists will perform initial evaluati on of pt's status upon admission and devise an individualized program for Caregiver Training Poor endurance - to improve, our physical therapists will perform initial evaluation of pt's status upon admission and devise an individualized program for Endurance Training Gait dysfunction - to improve, our physical therapists will perform initial evaluation of pt's statu s upon admission and devise an individualized program for Gait Training, and Wheel Chair mobility Need for home safety evaluation - to improve, our physical therapists will perform initial evaluatio n of pt's status upon admission and devise an individualized program for Home Evaluation New precaution - to improve, our physical therapists will perform initial evaluation of pt's status upon admission and devise an individualized program for Patient precaution education Edema - to improve, our physical therapists will perform initial evaluation of pt's status upon admi ssion and devise an individualized program for Elevation Training, and Lymphedema Therapy - Occupational Therapy Weakness - to improve, our occupation therapists will perform initial evaluation of pt's status upon admission and devise an individualized program for Aquatic Therapy, Balance, Endurance, UE ROM, and UE strengthening ADL deficits - to improve, our occupation therapists will perform initial evaluation of pt's status upon admission and devise an individualized program for Bathing, Bed mobility, Community Reintegratio n, Cooking, Dressing, Eating, Fine Motor Skills, Grooming, Homemaking, Kitchen Mobility, Laundry, Pat ient Education, Safety Awareness, Splinting - Positioning, Transfers(Toilet, Tub, Shower), and Wheel Chair Management Need for resident care associate - to improve, our occupation therapists will perform initial evaluation of pt's status upon admission and devise an individualized program for Caregiver Training Cognitive deficits - to improve, our occupation therapists will perform initial evaluation of pt's s tatus upon admission and devise an individualized program for Cognition - orientation - Other See attached MAR (Medication Administration Record) - Diet Type Continue Regular - Diet - Liquid Texture Continue Regular - Tube Feed Continue N/A - Bladder care per protocol - Weight Bearing Precaution WBAT right LE - Fall Precaution Bed alarm TABS alarm Wheel chair alarm - Skin care per protocol - Diet - Solid Texture Continue Regular - Shower allowing shower for Dementia, TBI, Stroke, or others - Balance for Weakness - Bed mobility for ADL deficits - Cognition - orientation for Dementia - Dressing Status: indep for ADL deficits - Eating for ADL deficits - Grooming Status: indep for ADL deficits - Toilet Transfer for ADL deficits Status: indep - Bed to Chair Transfer SELECT Status: indep for ADL deficits - Tub Transfer for ADL deficits Status: indep - Hygiene for ADL deficits - Shower Transfer for ADL deficits Status: indep - Wheel Chair to Bed Transfer Status: indep for ADL deficits FUNCTIONAL STATUS: UPDATED AT WEEKLY TEAM CONFERENCE - Bladder Same accident frequency: 7-Ind - No accidents in the past 7 days - Bowel Same accident frequency: 7-Ind - No accidents in the past 7 days - Walking Same score based on distance walked: 0(N/A) - Wheelchair Same score based on distance traveled: 0(N/A) FUNCTIONAL STATUS: - Self-Care A. Eating modA B. Grooming maxA C. Bathing maxA D. Dressing - Upper modA E. Dressing - Lower maxA F. Toileting modA - Sphincter Control G. Bladder control Porfirio H. Bowel control Porfirio - Transfers Control I. Bed/Chair/Wheelchair maxA J. Toilet maxA K. Tub/Shower maxA - Locomotion L. Walk/Wheelchair (B) maxA M. Stairs ADNO - Communication N. Comprehension (B) maxA O. Expression (B) maxA - Social Cognition P. Social Interaction modA Q. Problem Solving maxA R. Memory modA - Endurance Poor - Balance Poor - Safety Awareness Poor QI SCORES: - Self-Care A. Eating 03-Partial/moderate assistance B. Oral hygiene 03-Partial/moderate assistance C. Toileting hygiene 02-Substantial/maximal assistance E. Shower/bathe self 02-Substantial/maximal assistance F. Upper body dressing 03-Partial/moderate assistance G. Lower body dressing 02-Substantial/maximal assistance H. Putting on/taking off footwear 88-Not attempted due to medical condition or safety concerns - Mobility A. Roll left and right 03-Partial/moderate assistance B. Sit to lying 02-Substantial/maximal assistance C. Lying to sitting on side of bed 03-Partial/moderate assistance D. Sit to stand 03-Partial/moderate assistance E. Chair/[id number]-[id number] transfer F. Toilet transfer 02-Substantial/maximal assistance G. Car transfer 88-Not attempted due to medical condition or safety concerns I. Walk 10 feet 88-Not attempted due to medical condition or safety concerns J. Walk 50 feet with two turns 88-Not attempted due to medical condition or safety concerns K. Walk 150 feet 88-Not attempted due to medical condition or safety concerns L. Walking 10 feet on uneven surfaces 88-Not attempted due to medical condition or safety concerns M. 1 step (curb) 88-Not attempted due to medical condition or safety concerns N. 4 steps 88-Not attempted due to medical condition or safety concerns O. 12 steps 88-Not attempted due to medical condition or safety concerns P. Picking up object 88-Not attempted due to medical condition or safety concerns R. Wheel 50 feet with two turns 88-Not attempted due to medical condition or safety concerns S. Wheel 150 feet 88-Not attempted due to medical condition or safety concerns - Bladder and Bowel Bladder continence Bowel continence - Endurance Poor - Balance Poor - Safety Awareness Fair CURRENT [facility]. DEFICITS: Self-Care, Mobility, Endurance, Balance, and Safety Awareness SIGNATURE PANEL: (CDT)
[2021-04-02] MEDS: MELATONIN 3 MG TABLET PO SCH (20:30)
[2021-04-02] MEDS: ATORVASTATIN 80 MG TAB PO SCH (20:30)
[2021-04-03] MEDS: AZITHROMYCIN 250 MG TAB PO SCH (07:59)
[2021-04-03] MEDS: DULOXETINE 20 MG CAP PO SCH (08:00)
[2021-04-03] MEDS: carvediloL 6.25 MG TAB PO SCH ×2 (08:00→20:00)
[2021-04-03] MEDS: VITAMIN D 5,000 UNIT CAP PO SCH (08:00)
[2021-04-03] MEDS: lisinopriL 5 MG TAB PO SCH (08:00)
[2021-04-03] MEDS: APIXABAN 2.5 MG TABLET PO SCH ×2 (08:01→20:01)
[2021-04-03] MEDS: ASCORBIC ACID 500 MG TABLET PO SCH ×2 (08:01→20:00)
[2021-04-03] MEDS: ZINC SULFATE 220 MG CAP PO SCH (08:01)
[2021-04-03] MEDS: FUROSEMIDE 20 MG TABLET PO SCH (08:01)
[2021-04-03] MEDS: ENSURE HIGH PROTEIN 237 ML CAN PO SCH ×2 (08:01→20:00)
[2021-04-03] MEDS: CYANOCOBALAMIN 1,000 MCG TAB PO SCH (08:02)
--- NOTE | 2021-04-03 15:33 | R.PN ---
PROGRESS NOTES ENCOUNTER DATE AND TIME: 04/03/2021 15:28 (CDT) NAME BRENT MCCLELLAN DATE OF : 1935 DATE OF ADMISSION: 03/27/2021 12:07 (CDT) Thrombosis of left middle cerebral artery, Post covid-19 syndromeCHIEF COMPLAINT: Stroke, aphasia, right sided weakness and numbness, post covid-19 syndrome SUBJECTIVE: Pt denied any depression. Pt denied any Shortness of Breath. WBC 8.8, Hgb 12.8, Plt 381, prealbumin 15.9, Steam Table Worker 2.17, UA trace esterase, > 50 RBCs. Covid-19 positiv e. Language expression (food labeling) done with 55% accuracy. VITAL SIGNS Temperature: 97.0 F SBP/DBP: 95 to 109/44 to 51 Pulse: 66 Resp: 16 MEDICATION ALLERGIES: No Known Drug Allergies (NKDA) ENVIRONMENTAL ALLERGIES: None Known - Substance Allergies None Known - Other Allergies None Known NURSING: - Shower allowing shower - Bladder care per protocol - Skin care per protocol PRECAUTIONS: - Fall Precaution Bed alarm TABS alarm Wheel chair alarm - Weight Bearing Precaution WBAT right LE ACTIVITIES OOB only with supervision THERAPIES: - Dietary and Nutrition Adequate Nutrition. Nutritional Education. Nutritional Supplements. - Occupational Therapy Cognitive Retraining. Evaluate and Treat. ADL Training. Community Reintegration. Eating. Household Ta sks. Patient/Family Education. Transfer Training. UE ROM. UE Strengthening. Safety Awareness. Adaptiv e Equipment. - Speech Therapy Cognitive Training. Expressive Language Skills. Memory Strategies. Receptive Language Skills. Speech Intelligibility Training. - Physical Therapy Evaluate and Treat. Balance Training. Gait Training. LE ROM. LE Strengthening. Medical Equipment Asse ssment and Evaluation. Mobility Training. Patient/Family Education. Safety Awareness. Transfer Traini ng. Wheelchair Management. PHYSICAL EXAM - Gen Alert and awake Lying in bed No apparent distress Oriented to: person, time, and place - Skin No skin breakdown. No abnormalities - Eyes No abnormalities - ENMT No abnormalities - Neck No abnormalities - CVS RRR - Chest No abnormalities - Resp No wheezing - Abd Soft - GI Non distended Deferred - Campbell catheter, will remove in the AM. - Ext No significant edema - MSK 4+/5 weakness in right upper and 3/5 right lower extremity. - Neuro 4+/5 weakness in right upper and 3/5 right lower extremity. Expressive aphasia, dysarthria - Psych No abnormalities ASSESSMENT: Pt. is a 85 yo Right-handed male.On 03/05/2021 Pt. presented to [facility] with sudden onset of right-side weakness.On 03/05/2021 he was admitted to [facility] with diagnosis Thrombosis of lef t middle cerebral artery, Post covid-19 syndrome.His impairment category is Stroke 01 - Right Body ( Left Brain) (01.2).Pre-morbidly, Pt. was supervision Locomotion, Social Cognition, Safety Awareness, Transfers Control, and Balance; and he had good Endurance, Self-Care, Communication, and Sphincter Co ntrol.Currently, he has deficits of Locomotion, Social Cognition, Safety Awareness, Transfers Control , Sphincter Control, Balance, Self-Care, and Communication.Pt. is now referred to [facility] for acute in-patient rehabilitation in order to maximize patient's functional independ ence in activities of daily living, strength, ROM, and mobility.- Rehab Goal Patient has realistic goal of being discharged at assistance level 7-Ind to reside at Home with Fami ly/Relatives. MDM/PLAN: - Physical Therapy Weakness - to improve, our physical therapists will perform initial evaluation of pt's status upon a dmission and devise an individualized program for Aquatic Therapy, Neuromuscular Reeducation, and Str engthening Poor balance - to improve, our physical therapists will perform initial evaluation of pt's status up on admission and devise an individualized program for Balance Training Inability to transfer - to improve, our physical therapists will perform initial evaluation of pt's status upon admission and devise an individualized program for Bed mobility Need in caregiver upon discharge - to improve, our physical therapists will perform initial evaluati on of pt's status upon admission and devise an individualized program for Caregiver Training Poor endurance - to improve, our physical therapists will perform initial evaluation of pt's status upon admission and devise an individualized program for Endurance Training Gait dysfunction - to improve, our physical therapists will perform initial evaluation of pt's statu s upon admission and devise an individualized program for Gait Training, and Wheel Chair mobility Need for home safety evaluation - to improve, our physical therapists will perform initial evaluatio n of pt's status upon admission and devise an individualized program for Home Evaluation New precaution - to improve, our physical therapists will perform initial evaluation of pt's status upon admission and devise an individualized program for Patient precaution education Edema - to improve, our physical therapists will perform initial evaluation of pt's status upon admi ssion and devise an individualized program for Elevation Training, and Lymphedema Therapy - Occupational Therapy Weakness - to improve, our occupation therapists will perform initial evaluation of pt's status upon admission and devise an individualized program for Aquatic Therapy, Balance, Endurance, UE ROM, and UE strengthening ADL deficits - to improve, our occupation therapists will perform initial evaluation of pt's status upon admission and devise an individualized program for Bathing, Bed mobility, Community Reintegratio n, Cooking, Dressing, Eating, Fine Motor Skills, Grooming, Homemaking, Kitchen Mobility, Laundry, Pat ient Education, Safety Awareness, Splinting - Positioning, Transfers(Toilet, Tub, Shower), and Wheel Chair Management Need for tree care foreman - to improve, our occupation therapists will perform initial evaluation of pt's status upon admission and devise an individualized program for Caregiver Training Cognitive deficits - to improve, our occupation therapists will perform initial evaluation of pt's s tatus upon admission and devise an individualized program for Cognition - orientation - Other See attached MAR (Medication Administration Record) - Diet Type Continue Regular - Diet - Liquid Texture Continue Regular - Tube Feed Continue N/A - Bladder care per protocol - Weight Bearing Precaution WBAT right LE - Fall Precaution Bed alarm TABS alarm Wheel chair alarm - Skin care per protocol - Diet - Solid Texture Continue Regular - Shower allowing shower for Dementia, TBI, Stroke, or others - Balance for Weakness - Bed mobility for ADL deficits - Cognition - orientation for Dementia - Dressing Status: indep for ADL deficits - Eating for ADL deficits - Grooming Status: indep for ADL deficits - Toilet Transfer for ADL deficits Status: indep - Bed to Chair Transfer SELECT Status: indep for ADL deficits - Tub Transfer for ADL deficits Status: indep - Hygiene for ADL deficits - Shower Transfer for ADL deficits Status: indep - Wheel Chair to Bed Transfer Status: indep for ADL deficits FUNCTIONAL STATUS: UPDATED AT WEEKLY TEAM CONFERENCE - Bladder Same accident frequency: 7-Ind - No accidents in the past 7 days - Bowel Same accident frequency: 7-Ind - No accidents in the past 7 days - Walking Same score based on distance walked: 0(N/A) - Wheelchair Same score based on distance traveled: 0(N/A) FUNCTIONAL STATUS: - Self-Care A. Eating modA B. Grooming maxA C. Bathing maxA D. Dressing - Upper modA E. Dressing - Lower maxA F. Toileting modA - Sphincter Control G. Bladder control Porfirio H. Bowel control Porfirio - Transfers Control I. Bed/Chair/Wheelchair maxA J. Toilet maxA K. Tub/Shower maxA - Locomotion L. Walk/Wheelchair (B) maxA M. Stairs ADNO - Communication N. Comprehension (B) maxA O. Expression (B) maxA - Social Cognition P. Social Interaction modA Q. Problem Solving maxA R. Memory modA - Endurance Poor - Balance Poor - Safety Awareness Poor QI SCORES: - Self-Care A. Eating 03-Partial/moderate assistance B. Oral hygiene 03-Partial/moderate assistance C. Toileting hygiene 02-Substantial/maximal assistance E. Shower/bathe self 02-Substantial/maximal assistance F. Upper body dressing 03-Partial/moderate assistance G. Lower body dressing 02-Substantial/maximal assistance H. Putting on/taking off footwear 88-Not attempted due to medical condition or safety concerns - Mobility A. Roll left and right 03-Partial/moderate assistance B. Sit to lying 02-Substantial/maximal assistance C. Lying to sitting on side of bed 03-Partial/moderate assistance D. Sit to stand 03-Partial/moderate assistance E. Chair/[id number] transfer F. Toilet transfer 02-Substantial/maximal assistance G. Car transfer 88-Not attempted due to medical condition or safety concerns I. Walk 10 feet 88-Not attempted due to medical condition or safety concerns J. Walk 50 feet with two turns 88-Not attempted due to medical condition or safety concerns K. Walk 150 feet 88-Not attempted due to medical condition or safety concerns L. Walking 10 feet on uneven surfaces 88-Not attempted due to medical condition or safety concerns M. 1 step (curb) 88-Not attempted due to medical condition or safety concerns N. 4 steps 88-Not attempted due to medical condition or safety concerns O. 12 steps 88-Not attempted due to medical condition or safety concerns P. Picking up object 88-Not attempted due to medical condition or safety concerns R. Wheel 50 feet with two turns 88-Not attempted due to medical condition or safety concerns S. Wheel 150 feet 88-Not attempted due to medical condition or safety concerns - Bladder and Bowel Bladder continence Bowel continence - Endurance Poor - Balance Poor - Safety Awareness Fair CURRENT [facility]. DEFICITS: Self-Care, Mobility, Endurance, Balance, and Safety Awareness SIGNATURE PANEL: (CDT)
[2021-04-03] MEDS: ATORVASTATIN 80 MG TAB PO SCH (19:58)
[2021-04-03] MEDS: MELATONIN 3 MG TABLET PO SCH (19:59)
[2021-04-04 05:12] LABS: Albumin 2.5 g/dL (3.4-5.0); Magnesium 2.1 mg/dL (1.8-2.4); Potassium 5.1 mmol/L (3.5-5.1); Prealbumin 25.9 mg/dL (20-40)
[2021-04-04 06:02] LABS: Absolute Lymphocytes (CBC) 2.6 K/uL (0.7-4.9); Basophils % 0.4 % (0-1.3); Hematocrit 38.6 % (39.6-49.0); Lymphocytes % 25.1 % (15.3-44.8); MPV 10.2 fL (7.6-11.3); RBC Red Blood Cell Count 4.46 M/uL (4.33-5.43)
[2021-04-04] MEDS: VITAMIN D 5,000 UNIT CAP PO SCH (08:00)
[2021-04-04] MEDS: ZINC SULFATE 220 MG CAP PO SCH (09:22)
[2021-04-04] MEDS: FUROSEMIDE 20 MG TABLET PO SCH (09:22)
[2021-04-04] MEDS: ASCORBIC ACID 500 MG TABLET PO SCH ×2 (09:22→19:40)
[2021-04-04] MEDS: AZITHROMYCIN 250 MG TAB PO SCH (09:22)
[2021-04-04] MEDS: DULOXETINE 20 MG CAP PO SCH (09:22)
[2021-04-04] MEDS: APIXABAN 2.5 MG TABLET PO SCH ×2 (09:23→19:40)
[2021-04-04] MEDS: carvediloL 6.25 MG TAB PO SCH ×2 (09:23→19:55)
[2021-04-04] MEDS: CYANOCOBALAMIN 1,000 MCG TAB PO SCH (09:23)
[2021-04-04] MEDS: lisinopriL 5 MG TAB PO SCH (09:23)
[2021-04-04] MEDS: ENSURE HIGH PROTEIN 237 ML CAN PO SCH (09:24)
--- NOTE | 2021-04-04 19:16 | R.PN ---
PROGRESS NOTES ENCOUNTER DATE AND TIME: 04/04/2021 19:07 (CDT) NAME BRENT MCCLELLAN DATE OF : 1935 DATE OF ADMISSION: 03/27/2021 12:07 (CDT) Thrombosis of left middle cerebral artery, Post covid-19 syndromeCHIEF COMPLAINT: Stroke, aphasia, right sided weakness and numbness, post covid-19 syndrome SUBJECTIVE: Pt denied any depression. Pt denied any Shortness of Breath. WBC 10.2, Hgb 12.9, Plt 381, prealbumin 25.9, Sanitarian Inspector 2.09, UA trace esterase, > 50 RBCs. Covid-19 positi ve. Ambulated 43' using a rolling walker with minimum assistance. Self-propelled wheelchair 200' with min imum assistance. VITAL SIGNS Temperature: 97.2 F SBP/DBP: 100/46 Pulse: 73 Resp: 16 MEDICATION ALLERGIES: No Known Drug Allergies (NKDA) ENVIRONMENTAL ALLERGIES: None Known - Substance Allergies None Known - Other Allergies None Known NURSING: - Shower allowing shower - Bladder care per protocol - Skin care per protocol PRECAUTIONS: - Fall Precaution Bed alarm TABS alarm Wheel chair alarm - Weight Bearing Precaution WBAT right LE ACTIVITIES OOB only with supervision THERAPIES: - Dietary and Nutrition Adequate Nutrition. Nutritional Education. Nutritional Supplements. - Occupational Therapy Cognitive Retraining. Evaluate and Treat. ADL Training. Community Reintegration. Eating. Household Ta sks. Patient/Family Education. Transfer Training. UE ROM. UE Strengthening. Safety Awareness. Adaptiv e Equipment. - Speech Therapy Cognitive Training. Expressive Language Skills. Memory Strategies. Receptive Language Skills. Speech Intelligibility Training. - Physical Therapy Evaluate and Treat. Balance Training. Gait Training. LE ROM. LE Strengthening. Medical Equipment Asse ssment and Evaluation. Mobility Training. Patient/Family Education. Safety Awareness. Transfer Traini ng. Wheelchair Management. PHYSICAL EXAM - Gen Alert and awake Lying in bed No apparent distress Oriented to: person, time, and place - Skin No skin breakdown. No abnormalities - Eyes No abnormalities - ENMT No abnormalities - Neck No abnormalities - CVS RRR - Chest No abnormalities - Resp No wheezing - Abd Soft - GI Non distended Deferred - Campbell catheter, will remove in the AM. - Ext No significant edema - MSK 4+/5 weakness in right upper and 3/5 right lower extremity. - Neuro 4+/5 weakness in right upper and 3/5 right lower extremity. Expressive aphasia, dysarthria - Psych No abnormalities ASSESSMENT: Pt. is a 85 yo Right-handed male.On 03/05/2021 Pt. presented to [facility] with sudden onset of right-side weakness.On 03/05/2021 he was admitted to [facility] with diagnosis Thrombosis of lef t middle cerebral artery, Post covid-19 syndrome.His impairment category is Stroke 01 - Right Body ( Left Brain) (01.2).Pre-morbidly, Pt. was supervision Locomotion, Social Cognition, Safety Awareness, Transfers Control, and Balance; and he had good Endurance, Self-Care, Communication, and Sphincter Co ntrol.Currently, he has deficits of Locomotion, Social Cognition, Safety Awareness, Transfers Control , Sphincter Control, Balance, Self-Care, and Communication.Pt. is now referred to [facility] for acute in-patient rehabilitation in order to maximize patient's functional independ ence in activities of daily living, strength, ROM, and mobility.- Rehab Goal Patient has realistic goal of being discharged at assistance level 7-Ind to reside at Home with Fami ly/Relatives. MDM/PLAN: - Physical Therapy Weakness - to improve, our physical therapists will perform initial evaluation of pt's status upon a dmission and devise an individualized program for Aquatic Therapy, Neuromuscular Reeducation, and Str engthening Poor balance - to improve, our physical therapists will perform initial evaluation of pt's status up on admission and devise an individualized program for Balance Training Inability to transfer - to improve, our physical therapists will perform initial evaluation of pt's status upon admission and devise an individualized program for Bed mobility Need in caregiver upon discharge - to improve, our physical therapists will perform initial evaluati on of pt's status upon admission and devise an individualized program for Caregiver Training Poor endurance - to improve, our physical therapists will perform initial evaluation of pt's status upon admission and devise an individualized program for Endurance Training Gait dysfunction - to improve, our physical therapists will perform initial evaluation of pt's statu s upon admission and devise an individualized program for Gait Training, and Wheel Chair mobility Need for home safety evaluation - to improve, our physical therapists will perform initial evaluatio n of pt's status upon admission and devise an individualized program for Home Evaluation New precaution - to improve, our physical therapists will perform initial evaluation of pt's status upon admission and devise an individualized program for Patient precaution education Edema - to improve, our physical therapists will perform initial evaluation of pt's status upon admi ssion and devise an individualized program for Elevation Training, and Lymphedema Therapy - Occupational Therapy Weakness - to improve, our occupation therapists will perform initial evaluation of pt's status upon admission and devise an individualized program for Aquatic Therapy, Balance, Endurance, UE ROM, and UE strengthening ADL deficits - to improve, our occupation therapists will perform initial evaluation of pt's status upon admission and devise an individualized program for Bathing, Bed mobility, Community Reintegratio n, Cooking, Dressing, Eating, Fine Motor Skills, Grooming, Homemaking, Kitchen Mobility, Laundry, Pat ient Education, Safety Awareness, Splinting - Positioning, Transfers(Toilet, Tub, Shower), and Wheel Chair Management Need for nursing care partner - to improve, our occupation therapists will perform initial evaluation of pt's status upon admission and devise an individualized program for Caregiver Training Cognitive deficits - to improve, our occupation therapists will perform initial evaluation of pt's s tatus upon admission and devise an individualized program for Cognition - orientation - Other See attached MAR (Medication Administration Record) - Diet Type Continue Regular - Diet - Liquid Texture Continue Regular - Tube Feed Continue N/A - Bladder care per protocol - Weight Bearing Precaution WBAT right LE - Fall Precaution Bed alarm TABS alarm Wheel chair alarm - Skin care per protocol - Diet - Solid Texture Continue Regular - Shower allowing shower for Dementia, TBI, Stroke, or others - Balance for Weakness - Bed mobility for ADL deficits - Cognition - orientation for Dementia - Dressing Status: indep for ADL deficits - Eating for ADL deficits - Grooming Status: indep for ADL deficits - Toilet Transfer for ADL deficits Status: indep - Bed to Chair Transfer SELECT Status: indep for ADL deficits - Tub Transfer for ADL deficits Status: indep - Hygiene for ADL deficits - Shower Transfer for ADL deficits Status: indep - Wheel Chair to Bed Transfer Status: indep for ADL deficits FUNCTIONAL STATUS: UPDATED AT WEEKLY TEAM CONFERENCE - Bladder Same accident frequency: 7-Ind - No accidents in the past 7 days - Bowel Same accident frequency: 7-Ind - No accidents in the past 7 days - Walking Same score based on distance walked: 0(N/A) - Wheelchair Same score based on distance traveled: 0(N/A) FUNCTIONAL STATUS: - Self-Care A. Eating modA B. Grooming maxA C. Bathing maxA D. Dressing - Upper modA E. Dressing - Lower maxA F. Toileting modA - Sphincter Control G. Bladder control Porfirio H. Bowel control Porfirio - Transfers Control I. Bed/Chair/Wheelchair maxA J. Toilet maxA K. Tub/Shower maxA - Locomotion L. Walk/Wheelchair (B) maxA M. Stairs ADNO - Communication N. Comprehension (B) maxA O. Expression (B) maxA - Social Cognition P. Social Interaction modA Q. Problem Solving maxA R. Memory modA - Endurance Poor - Balance Poor - Safety Awareness Poor QI SCORES: - Self-Care A. Eating 03-Partial/moderate assistance B. Oral hygiene 03-Partial/moderate assistance C. Toileting hygiene 02-Substantial/maximal assistance E. Shower/bathe self 02-Substantial/maximal assistance F. Upper body dressing 03-Partial/moderate assistance G. Lower body dressing 02-Substantial/maximal assistance H. Putting on/taking off footwear 88-Not attempted due to medical condition or safety concerns - Mobility A. Roll left and right 03-Partial/moderate assistance B. Sit to lying 02-Substantial/maximal assistance C. Lying to sitting on side of bed 03-Partial/moderate assistance D. Sit to stand 03-Partial/moderate assistance E. Chair/qwv-ru-ivvdi transfer F. Toilet transfer 02-Substantial/maximal assistance G. Car transfer 88-Not attempted due to medical condition or safety concerns I. Walk 10 feet 88-Not attempted due to medical condition or safety concerns J. Walk 50 feet with two turns 88-Not attempted due to medical condition or safety concerns K. Walk 150 feet 88-Not attempted due to medical condition or safety concerns L. Walking 10 feet on uneven surfaces 88-Not attempted due to medical condition or safety concerns M. 1 step (curb) 88-Not attempted due to medical condition or safety concerns N. 4 steps 88-Not attempted due to medical condition or safety concerns O. 12 steps 88-Not attempted due to medical condition or safety concerns P. Picking up object 88-Not attempted due to medical condition or safety concerns R. Wheel 50 feet with two turns 88-Not attempted due to medical condition or safety concerns S. Wheel 150 feet 88-Not attempted due to medical condition or safety concerns - Bladder and Bowel Bladder continence Bowel continence - Endurance Poor - Balance Poor - Safety Awareness Fair CURRENT [facility]. DEFICITS: Self-Care, Mobility, Endurance, Balance, and Safety Awareness SIGNATURE PANEL: (CDT)
[2021-04-04] MEDS: ATORVASTATIN 80 MG TAB PO SCH (19:40)
[2021-04-04] MEDS: MELATONIN 3 MG TABLET PO SCH (19:41)
[2021-04-04] MEDS: ENSURE ENLIVE 237 ML CAN PO SCH (21:23)
[2021-04-05] MEDS: lisinopriL 5 MG TAB PO SCH (08:00)
[2021-04-05] MEDS: carvediloL 6.25 MG TAB PO SCH ×2 (08:00→19:37)
[2021-04-05] MEDS: ASCORBIC ACID 500 MG TABLET PO SCH ×2 (08:37→19:35)
[2021-04-05] MEDS: ZINC SULFATE 220 MG CAP PO SCH (08:37)
[2021-04-05] MEDS: FUROSEMIDE 20 MG TABLET PO SCH (08:37)
[2021-04-05] MEDS: APIXABAN 2.5 MG TABLET PO SCH ×2 (08:37→19:35)
[2021-04-05] MEDS: DULOXETINE 20 MG CAP PO SCH (08:38)
[2021-04-05] MEDS: CYANOCOBALAMIN 1,000 MCG TAB PO SCH (08:38)
[2021-04-05] MEDS: AZITHROMYCIN 250 MG TAB PO SCH (08:38)
[2021-04-05] MEDS: VITAMIN D 5,000 UNIT CAP PO SCH (08:38)
[2021-04-05] MEDS: ENSURE ENLIVE 237 ML CAN PO SCH ×2 (08:39→19:36)
--- NOTE | 2021-04-05 09:55 | P.RH.PN ---
Estimated Length of Stay: 20 Expected Discharge Date: 04/16/21 Discharge Disposition Plan: Home Family Support: Yes [facility] Goal: Mobility, Transfers, Self Care Vital Signs: Last Vital Signs Temp 97.0 F 04/04/21 20:46 Pulse 71 04/05/21 08:37 Resp 18 04/04/21 20:46 BP 90/46 L 04/05/21 08:37 Pulse Ox 96 04/04/21 20:46 Laboratory: Laboratory Last Values WBC 10.20 K/uL (4.3-10.9) D 04/04/21 04:23 RBC 4.46 M/uL (4.33-5.43) 04/04/21 04:23 Hgb 12.9 g/dL (13.6-17.9) L 04/04/21 04:23 Hct 38.6 % (39.6-49.0) L 04/04/21 04:23 MCV 86.6 fL (80-100) 04/04/21 04:23 MCH 28.9 pg (27.0-35.0) 04/04/21 04:23 MCHC 33.4 g/dL (32.0-36.0) 04/04/21 04:23 RDW 14.2 % (12.1-15.2) 04/04/21 04:23 Plt Count 253 K/uL (152-406) D 04/04/21 04:23 MPV 10.2 fL (7.6-11.3) 04/04/21 04:23 Neutrophils % 57.6 % (41.7-73.7) 04/04/21 04:23 Lymphocytes % 25.1 % (15.3-44.8) 04/04/21 04:23 Monocytes % 13.4 % (3.3-12.3) H 04/04/21 04:23 Eosinophils % 3.5 % (0-4.4) 04/04/21 04:23 Basophils % 0.4 % (0-1.3) 04/04/21 04:23 Absolute Neutrophils 5.9 K/uL (1.8-8.0) 04/04/21 04:23 Absolute Lymphocytes 2.6 K/uL (0.7-4.9) 04/04/21 04:23 Absolute Monocytes 1.4 K/uL (0.1-1.3) H 04/04/21 04:23 Absolute Eosinophils 0.4 K/uL (0-0.5) 04/04/21 04:23 Absolute Basophils 0.0 K/uL (0-0.5) 04/04/21 04:23 Sodium 142 mmol/L (136-145) 04/04/21 04:23 Potassium 5.1 mmol/L (3.5-5.1) 04/04/21 04:23 Chloride 112 mmol/L (98-107) H 04/04/21 04:23 Carbon Dioxide 25 mmol/L (21-32) 04/04/21 04:23 BUN 79 mg/dL (7-18) H D 04/04/21 04:23 Creatinine 2.09 mg/dL (0.55-1.3) H 04/04/21 04:23 Estimated GFR 30 mL/min (=/>90) L 04/04/21 04:23 Glucose 115 mg/dL (74-106) H 04/04/21 04:23 Calcium 8.7 mg/dL (8.5-10.1) 04/04/21 04:23 Magnesium 2.1 mg/dL (1.8-2.4) 04/04/21 04:23 Albumin 2.5 g/dL (3.4-5.0) L 04/04/21 04:23 Prealbumin 25.9 mg/dL (20-40) 04/04/21 04:23 Urine Color Yellow (Yellow) 03/27/21 20:18 Urine Appearance Cloudy (Clear) 03/27/21 20:18 Urine pH 5.0 (5.0-7.0) 03/27/21 20:18 Ur Specific [place] 1.015 (1.005-1.030) 03/27/21 20:18 Glucose (UA)(Auto) Negative (Negative) 03/27/21 20:18 Urine Ketones Negative (Negative) 03/27/21 20:18 Urine Blood 3+ (Negative) H 03/27/21 20:18 Urine Nitrite Negative (Negative) 03/27/21 20:18 Urine Bilirubin Negative (Negative) 03/27/21 20:18 Urine Urobilinogen 0.2 mg/dL (0.2-1.0) 03/27/21 20:18 Ur Leukocyte Esterase Trace (Negative) H 03/27/21 20:18 Urine RBC >50 /HPF (NONE SEEN) H 03/27/21 20:18 Urine WBC <5 /HPF (<5) 03/27/21 20:18 Ur Squamous Epith Cells BLOCK MACHINE OPERATOR 03/27/21 20:18 Ur Urothelial Cells <5 /HPF (NONE SEEN) 03/27/21 20:18 Urine Bacteria <20 /HPF (NONE SEEN) 03/27/21 20:18 Urine Mucus Slight /HPF (NONE SEEN) 03/27/21 20:18 Urine Culture Reflexed Reflexed 03/27/21 20:18 Urine Total Protein Trace (Negative) H 03/27/21 20:18 SARS-CoV-2 Rap RNA(RT-PCR) Positive (NEGATIVE) A 03/27/21 13:55 Weight: 160 lb 12.8 oz Wound Present: No Closed Surgical Incision Present: No Negative Pressure Wound Therapy Present: No Physician Update: He is doing faily well with expression and comprehension. His Cellophane Press Operator is elevated but still at 2.09. He is walking 18' minimum assitance. Contact guard with transfers. Min assistance with wheelchair 250'. Max assistance witih lower body dressing. Showers and upper body dressing is min assistance. Comment: No skin breakdown Functional Improvement: Patient has been progressing well, however has appeared w/ increased lethargy/fatigue the last two days. Patient indicated that he "hasn't slept at all", which could possibly be the reason for the change. Will continue to provide PT services for patient, and progress toward goals. Summary: Patient's care plan and moth exterminator goals have been reviewed and revised as necessary. Please see the Rehabilitation Signature page for all necessary signatures.
[2021-04-05] MEDS: MELATONIN 3 MG TABLET PO SCH (19:35)
[2021-04-05] MEDS: ATORVASTATIN 80 MG TAB PO SCH (19:35)
[2021-04-06] MEDS: ASCORBIC ACID 500 MG TABLET PO SCH ×2 (07:57→19:33)
[2021-04-06] MEDS: DULOXETINE 20 MG CAP PO SCH (07:57)
[2021-04-06] MEDS: FUROSEMIDE 20 MG TABLET PO SCH (07:57)
[2021-04-06] MEDS: ZINC SULFATE 220 MG CAP PO SCH (07:58)
[2021-04-06] MEDS: AZITHROMYCIN 250 MG TAB PO SCH (07:58)
[2021-04-06] MEDS: CYANOCOBALAMIN 1,000 MCG TAB PO SCH (07:58)
[2021-04-06] MEDS: ENSURE ENLIVE 237 ML CAN PO SCH ×2 (07:58→19:34)
[2021-04-06] MEDS: APIXABAN 2.5 MG TABLET PO SCH ×2 (07:58→19:33)
[2021-04-06] MEDS: VITAMIN D 5,000 UNIT CAP PO SCH (07:58)
[2021-04-06] MEDS: carvediloL 6.25 MG TAB PO SCH ×2 (08:00→19:34)
[2021-04-06] MEDS: lisinopriL 5 MG TAB PO SCH (08:00)
[2021-04-06] MEDS: ATORVASTATIN 80 MG TAB PO SCH (19:33)
[2021-04-06] MEDS: MELATONIN 3 MG TABLET PO SCH (19:34)
[2021-04-07] MEDS: ZINC SULFATE 220 MG CAP PO SCH (07:54)
[2021-04-07] MEDS: APIXABAN 2.5 MG TABLET PO SCH ×2 (07:54→19:41)
[2021-04-07] MEDS: FUROSEMIDE 20 MG TABLET PO SCH (07:54)
[2021-04-07] MEDS: VITAMIN D 5,000 UNIT CAP PO SCH (07:54)
[2021-04-07] MEDS: CYANOCOBALAMIN 1,000 MCG TAB PO SCH (07:54)
[2021-04-07] MEDS: DULOXETINE 20 MG CAP PO SCH (07:54)
[2021-04-07] MEDS: ENSURE ENLIVE 237 ML CAN PO SCH ×2 (07:55→19:42)
[2021-04-07] MEDS: ASCORBIC ACID 500 MG TABLET PO SCH ×2 (07:56→19:41)
[2021-04-07] MEDS: carvediloL 6.25 MG TAB PO SCH ×2 (08:00→19:41)
[2021-04-07] MEDS: lisinopriL 5 MG TAB PO SCH (08:00)
[2021-04-07] MEDS: ATORVASTATIN 80 MG TAB PO SCH (19:41)
[2021-04-07] MEDS: MELATONIN 3 MG TABLET PO SCH (19:41)
[2021-04-08] MEDS: carvediloL 6.25 MG TAB PO SCH ×2 (09:01→18:47)
[2021-04-08] MEDS: CYANOCOBALAMIN 1,000 MCG TAB PO SCH (09:01)
[2021-04-08] MEDS: ZINC SULFATE 220 MG CAP PO SCH (09:02)
[2021-04-08] MEDS: APIXABAN 2.5 MG TABLET PO SCH ×2 (09:02→18:46)
[2021-04-08] MEDS: DULOXETINE 20 MG CAP PO SCH (09:04)
[2021-04-08] MEDS: lisinopriL 5 MG TAB PO SCH (09:04)
[2021-04-08] MEDS: FUROSEMIDE 20 MG TABLET PO SCH (09:04)
[2021-04-08] MEDS: ASCORBIC ACID 500 MG TABLET PO SCH ×2 (09:05→18:46)
[2021-04-08] MEDS: VITAMIN D 5,000 UNIT CAP PO SCH (09:05)
[2021-04-08] MEDS: ENSURE ENLIVE 237 ML CAN PO SCH ×2 (09:10→18:47)
[2021-04-08] MEDS: ATORVASTATIN 80 MG TAB PO SCH (18:46)
[2021-04-08] MEDS: MELATONIN 3 MG TABLET PO SCH (18:46)
[2021-04-09] MEDS: lisinopriL 5 MG TAB PO SCH (07:36)
[2021-04-09] MEDS: carvediloL 6.25 MG TAB PO SCH ×2 (07:36→21:14)
[2021-04-09] MEDS: APIXABAN 2.5 MG TABLET PO SCH ×2 (07:37→21:14)
[2021-04-09] MEDS: ASCORBIC ACID 500 MG TABLET PO SCH ×2 (07:37→21:13)
[2021-04-09] MEDS: VITAMIN D 5,000 UNIT CAP PO SCH (07:37)
[2021-04-09] MEDS: ENSURE ENLIVE 237 ML CAN PO SCH ×2 (07:38→20:00)
[2021-04-09] MEDS: ZINC SULFATE 220 MG CAP PO SCH (07:38)
[2021-04-09] MEDS: CYANOCOBALAMIN 1,000 MCG TAB PO SCH (07:38)
[2021-04-09] MEDS: FUROSEMIDE 20 MG TABLET PO SCH (07:38)
[2021-04-09] MEDS: DULOXETINE 20 MG CAP PO SCH (07:38)
--- NOTE | 2021-04-09 18:53 | R.PN ---
PROGRESS NOTES ENCOUNTER DATE AND TIME: 04/09/2021 18:51 (CDT) NAME BRENT MCCLLELAN DATE OF : 1935 DATE OF ADMISSION: 03/27/2021 12:07 (CDT) Thrombosis of left middle cerebral artery, Post covid-19 syndromeCHIEF COMPLAINT: Stroke, aphasia, right sided weakness and numbness, post covid-19 syndrome SUBJECTIVE: Pt denied any depression. Pt denied any Shortness of Breath. WBC 10.2, Hgb 12.9, Plt 381, prealbumin 25.9, Rd Mechanical Engineer 2.09, UA trace esterase, > 50 RBCs. Covid-19 positi ve. Ambulated 42' using a rolling walker with minimum assistance. Self-propelled wheelchair 72' with mini mum assistance. VITAL SIGNS Temperature: 97.4 F SBP/DBP: 100/42 Pulse: 69 Resp: 16 MEDICATION ALLERGIES: No Known Drug Allergies (NKDA) ENVIRONMENTAL ALLERGIES: None Known - Substance Allergies None Known - Other Allergies None Known NURSING: - Shower allowing shower - Bladder care per protocol - Skin care per protocol PRECAUTIONS: - Fall Precaution Bed alarm TABS alarm Wheel chair alarm - Weight Bearing Precaution WBAT right LE ACTIVITIES OOB only with supervision THERAPIES: - Dietary and Nutrition Adequate Nutrition. Nutritional Education. Nutritional Supplements. - Occupational Therapy Cognitive Retraining. Evaluate and Treat. ADL Training. Community Reintegration. Eating. Household Ta sks. Patient/Family Education. Transfer Training. UE ROM. UE Strengthening. Safety Awareness. Adaptiv e Equipment. - Speech Therapy Cognitive Training. Expressive Language Skills. Memory Strategies. Receptive Language Skills. Speech Intelligibility Training. - Physical Therapy Evaluate and Treat. Balance Training. Gait Training. LE ROM. LE Strengthening. Medical Equipment Asse ssment and Evaluation. Mobility Training. Patient/Family Education. Safety Awareness. Transfer Traini ng. Wheelchair Management. PHYSICAL EXAM - Gen Alert and awake Lying in bed No apparent distress Oriented to: person, time, and place - Skin No skin breakdown. No abnormalities - Eyes No abnormalities - ENMT No abnormalities - Neck No abnormalities - CVS RRR - Chest No abnormalities - Resp No wheezing - Abd Soft - GI Non distended Deferred - Campbell catheter, will remove in the AM. - Ext No significant edema - MSK 4+/5 weakness in right upper and 3/5 right lower extremity. - Neuro 4+/5 weakness in right upper and 3/5 right lower extremity. Expressive aphasia, dysarthria - Psych No abnormalities ASSESSMENT: Pt. is a 85 yo Right-handed male.On 03/05/2021 Pt. presented to [facility] with sudden onset of right-side weakness.On 03/05/2021 he was admitted to [facility] with diagnosis Thrombosis of lef t middle cerebral artery, Post covid-19 syndrome.His impairment category is Stroke 01 - Right Body ( Left Brain) (01.2).Pre-morbidly, Pt. was supervision Locomotion, Social Cognition, Safety Awareness, Transfers Control, and Balance; and he had good Endurance, Self-Care, Communication, and Sphincter Co ntrol.Currently, he has deficits of Locomotion, Social Cognition, Safety Awareness, Transfers Control , Sphincter Control, Balance, Self-Care, and Communication.Pt. is now referred to [facility] for acute in-patient rehabilitation in order to maximize patient's functional independ ence in activities of daily living, strength, ROM, and mobility.- Rehab Goal Patient has realistic goal of being discharged at assistance level 7-Ind to reside at Home with Fami ly/Relatives. MDM/PLAN: - Physical Therapy Weakness - to improve, our physical therapists will perform initial evaluation of pt's status upon a dmission and devise an individualized program for Aquatic Therapy, Neuromuscular Reeducation, and Str engthening Poor balance - to improve, our physical therapists will perform initial evaluation of pt's status up on admission and devise an individualized program for Balance Training Inability to transfer - to improve, our physical therapists will perform initial evaluation of pt's status upon admission and devise an individualized program for Bed mobility Need in caregiver upon discharge - to improve, our physical therapists will perform initial evaluati on of pt's status upon admission and devise an individualized program for Caregiver Training Poor endurance - to improve, our physical therapists will perform initial evaluation of pt's status upon admission and devise an individualized program for Endurance Training Gait dysfunction - to improve, our physical therapists will perform initial evaluation of pt's statu s upon admission and devise an individualized program for Gait Training, and Wheel Chair mobility Need for home safety evaluation - to improve, our physical therapists will perform initial evaluatio n of pt's status upon admission and devise an individualized program for Home Evaluation New precaution - to improve, our physical therapists will perform initial evaluation of pt's status upon admission and devise an individualized program for Patient precaution education Edema - to improve, our physical therapists will perform initial evaluation of pt's status upon admi ssion and devise an individualized program for Elevation Training, and Lymphedema Therapy - Occupational Therapy Weakness - to improve, our occupation therapists will perform initial evaluation of pt's status upon admission and devise an individualized program for Aquatic Therapy, Balance, Endurance, UE ROM, and UE strengthening ADL deficits - to improve, our occupation therapists will perform initial evaluation of pt's status upon admission and devise an individualized program for Bathing, Bed mobility, Community Reintegratio n, Cooking, Dressing, Eating, Fine Motor Skills, Grooming, Homemaking, Kitchen Mobility, Laundry, Pat ient Education, Safety Awareness, Splinting - Positioning, Transfers(Toilet, Tub, Shower), and Wheel Chair Management Need for care director rn - to improve, our occupation therapists will perform initial evaluation of pt's status upon admission and devise an individualized program for Caregiver Training Cognitive deficits - to improve, our occupation therapists will perform initial evaluation of pt's s tatus upon admission and devise an individualized program for Cognition - orientation - Other See attached MAR (Medication Administration Record) - Diet Type Continue Regular - Diet - Liquid Texture Continue Regular - Tube Feed Continue N/A - Bladder care per protocol - Weight Bearing Precaution WBAT right LE - Fall Precaution Bed alarm TABS alarm Wheel chair alarm - Skin care per protocol - Diet - Solid Texture Continue Regular - Shower allowing shower for Dementia, TBI, Stroke, or others - Balance for Weakness - Bed mobility for ADL deficits - Cognition - orientation for Dementia - Dressing Status: indep for ADL deficits - Eating for ADL deficits - Grooming Status: indep for ADL deficits - Toilet Transfer for ADL deficits Status: indep - Bed to Chair Transfer SELECT Status: indep for ADL deficits - Tub Transfer for ADL deficits Status: indep - Hygiene for ADL deficits - Shower Transfer for ADL deficits Status: indep - Wheel Chair to Bed Transfer Status: indep for ADL deficits FUNCTIONAL STATUS: UPDATED AT WEEKLY TEAM CONFERENCE - Bladder Same accident frequency: 7-Ind - No accidents in the past 7 days - Bowel Same accident frequency: 7-Ind - No accidents in the past 7 days - Walking Same score based on distance walked: 0(N/A) - Wheelchair Same score based on distance traveled: 0(N/A) FUNCTIONAL STATUS: - Self-Care A. Eating modA B. Grooming maxA C. Bathing maxA D. Dressing - Upper modA E. Dressing - Lower maxA F. Toileting modA - Sphincter Control G. Bladder control Porfirio H. Bowel control Porfirio - Transfers Control I. Bed/Chair/Wheelchair maxA J. Toilet maxA K. Tub/Shower maxA - Locomotion L. Walk/Wheelchair (B) maxA M. Stairs ADNO - Communication N. Comprehension (B) maxA O. Expression (B) maxA - Social Cognition P. Social Interaction modA Q. Problem Solving maxA R. Memory modA - Endurance Poor - Balance Poor - Safety Awareness Poor QI SCORES: - Self-Care A. Eating 03-Partial/moderate assistance B. Oral hygiene 03-Partial/moderate assistance C. Toileting hygiene 02-Substantial/maximal assistance E. Shower/bathe self 02-Substantial/maximal assistance F. Upper body dressing 03-Partial/moderate assistance G. Lower body dressing 02-Substantial/maximal assistance H. Putting on/taking off footwear 88-Not attempted due to medical condition or safety concerns - Mobility A. Roll left and right 03-Partial/moderate assistance B. Sit to lying 02-Substantial/maximal assistance C. Lying to sitting on side of bed 03-Partial/moderate assistance D. Sit to stand 03-Partial/moderate assistance E. Chair/[id number]-fg-rveeh transfer F. Toilet transfer 02-Substantial/maximal assistance G. Car transfer 88-Not attempted due to medical condition or safety concerns I. Walk 10 feet 88-Not attempted due to medical condition or safety concerns J. Walk 50 feet with two turns 88-Not attempted due to medical condition or safety concerns K. Walk 150 feet 88-Not attempted due to medical condition or safety concerns L. Walking 10 feet on uneven surfaces 88-Not attempted due to medical condition or safety concerns M. 1 step (curb) 88-Not attempted due to medical condition or safety concerns N. 4 steps 88-Not attempted due to medical condition or safety concerns O. 12 steps 88-Not attempted due to medical condition or safety concerns P. Picking up object 88-Not attempted due to medical condition or safety concerns R. Wheel 50 feet with two turns 88-Not attempted due to medical condition or safety concerns S. Wheel 150 feet 88-Not attempted due to medical condition or safety concerns - Bladder and Bowel Bladder continence Bowel continence - Endurance Poor - Balance Poor - Safety Awareness Fair CURRENT [facility]. DEFICITS: Self-Care, Mobility, Endurance, Balance, and Safety Awareness SIGNATURE PANEL: (CDT)
[2021-04-09] MEDS: MELATONIN 3 MG TABLET PO SCH (21:00)
[2021-04-09] MEDS: ATORVASTATIN 80 MG TAB PO SCH (21:13)
[2021-04-10] MEDS: lisinopriL 5 MG TAB PO SCH (07:42)
[2021-04-10] MEDS: carvediloL 6.25 MG TAB PO SCH ×2 (07:42→20:06)
[2021-04-10] MEDS: APIXABAN 2.5 MG TABLET PO SCH ×2 (07:43→20:06)
[2021-04-10] MEDS: DULOXETINE 20 MG CAP PO SCH (07:43)
[2021-04-10] MEDS: ENSURE ENLIVE 237 ML CAN PO SCH ×2 (07:43→20:06)
[2021-04-10] MEDS: ASCORBIC ACID 500 MG TABLET PO SCH ×2 (07:43→20:06)
[2021-04-10] MEDS: ZINC SULFATE 220 MG CAP PO SCH (07:44)
[2021-04-10] MEDS: VITAMIN D 5,000 UNIT CAP PO SCH (07:45)
[2021-04-10] MEDS: CYANOCOBALAMIN 1,000 MCG TAB PO SCH (07:45)
[2021-04-10] MEDS: FUROSEMIDE 20 MG TABLET PO SCH (07:47)
[2021-04-10] MEDS: ATORVASTATIN 80 MG TAB PO SCH (20:06)
[2021-04-10] MEDS: MELATONIN 3 MG TABLET PO SCH (20:06)
--- NOTE | 2021-04-10 20:49 | R.PN ---
PROGRESS NOTES ENCOUNTER DATE AND TIME: 04/10/2021 20:46 (CDT) NAME BRENT MCCLELLAN DATE OF : 1935 DATE OF ADMISSION: 03/27/2021 12:07 (CDT) Thrombosis of left middle cerebral artery, Post covid-19 syndromeCHIEF COMPLAINT: Stroke, aphasia, right sided weakness and numbness, post covid-19 syndrome SUBJECTIVE: Pt denied any depression. Pt denied any Shortness of Breath. WBC 10.2, Hgb 12.9, Plt 381, prealbumin 25.9, Clinical Education Manager 2.09, UA trace esterase, > 50 RBCs. Covid-19 positi ve. Ambulated 49' using a rolling walker with moderate assistance. Self-propelled wheelchair 136' with mi nimum assistance. VITAL SIGNS Temperature: 97.9 F SBP/DBP: 118/66 Pulse: 75 Resp: 15 MEDICATION ALLERGIES: No Known Drug Allergies (NKDA) ENVIRONMENTAL ALLERGIES: None Known - Substance Allergies None Known - Other Allergies None Known NURSING: - Shower allowing shower - Bladder care per protocol - Skin care per protocol PRECAUTIONS: - Fall Precaution Bed alarm TABS alarm Wheel chair alarm - Weight Bearing Precaution WBAT right LE ACTIVITIES OOB only with supervision THERAPIES: - Dietary and Nutrition Adequate Nutrition. Nutritional Education. Nutritional Supplements. - Occupational Therapy Cognitive Retraining. Evaluate and Treat. ADL Training. Community Reintegration. Eating. Household Ta sks. Patient/Family Education. Transfer Training. UE ROM. UE Strengthening. Safety Awareness. Adaptiv e Equipment. - Speech Therapy Cognitive Training. Expressive Language Skills. Memory Strategies. Receptive Language Skills. Speech Intelligibility Training. - Physical Therapy Evaluate and Treat. Balance Training. Gait Training. LE ROM. LE Strengthening. Medical Equipment Asse ssment and Evaluation. Mobility Training. Patient/Family Education. Safety Awareness. Transfer Traini ng. Wheelchair Management. PHYSICAL EXAM - Gen Alert and awake Lying in bed No apparent distress Oriented to: person, time, and place - Skin No skin breakdown. No abnormalities - Eyes No abnormalities - ENMT No abnormalities - Neck No abnormalities - CVS RRR - Chest No abnormalities - Resp No wheezing - Abd Soft - GI Non distended Deferred - Campbell catheter, will remove in the AM. - Ext No significant edema - MSK 4+/5 weakness in right upper and 3/5 right lower extremity. - Neuro 4+/5 weakness in right upper and 3/5 right lower extremity. Expressive aphasia, dysarthria - Psych No abnormalities ASSESSMENT: Pt. is a 85 yo Right-handed male.On 03/05/2021 Pt. presented to [facility] with sudden onset of right-side weakness.On 03/05/2021 he was admitted to [facility] with diagnosis Thrombosis of lef t middle cerebral artery, Post covid-19 syndrome.His impairment category is Stroke 01 - Right Body ( Left Brain) (01.2).Pre-morbidly, Pt. was supervision Locomotion, Social Cognition, Safety Awareness, Transfers Control, and Balance; and he had good Endurance, Self-Care, Communication, and Sphincter Co ntrol.Currently, he has deficits of Locomotion, Social Cognition, Safety Awareness, Transfers Control , Sphincter Control, Balance, Self-Care, and Communication.Pt. is now referred to [facility] for acute in-patient rehabilitation in order to maximize patient's functional independ ence in activities of daily living, strength, ROM, and mobility.- Rehab Goal Patient has realistic goal of being discharged at assistance level 7-Ind to reside at Home with Fami ly/Relatives. MDM/PLAN: - Physical Therapy Weakness - to improve, our physical therapists will perform initial evaluation of pt's status upon a dmission and devise an individualized program for Aquatic Therapy, Neuromuscular Reeducation, and Str engthening Poor balance - to improve, our physical therapists will perform initial evaluation of pt's status up on admission and devise an individualized program for Balance Training Inability to transfer - to improve, our physical therapists will perform initial evaluation of pt's status upon admission and devise an individualized program for Bed mobility Need in caregiver upon discharge - to improve, our physical therapists will perform initial evaluati on of pt's status upon admission and devise an individualized program for Caregiver Training Poor endurance - to improve, our physical therapists will perform initial evaluation of pt's status upon admission and devise an individualized program for Endurance Training Gait dysfunction - to improve, our physical therapists will perform initial evaluation of pt's statu s upon admission and devise an individualized program for Gait Training, and Wheel Chair mobility Need for home safety evaluation - to improve, our physical therapists will perform initial evaluatio n of pt's status upon admission and devise an individualized program for Home Evaluation New precaution - to improve, our physical therapists will perform initial evaluation of pt's status upon admission and devise an individualized program for Patient precaution education Edema - to improve, our physical therapists will perform initial evaluation of pt's status upon admi ssion and devise an individualized program for Elevation Training, and Lymphedema Therapy - Occupational Therapy Weakness - to improve, our occupation therapists will perform initial evaluation of pt's status upon admission and devise an individualized program for Aquatic Therapy, Balance, Endurance, UE ROM, and UE strengthening ADL deficits - to improve, our occupation therapists will perform initial evaluation of pt's status upon admission and devise an individualized program for Bathing, Bed mobility, Community Reintegratio n, Cooking, Dressing, Eating, Fine Motor Skills, Grooming, Homemaking, Kitchen Mobility, Laundry, Pat ient Education, Safety Awareness, Splinting - Positioning, Transfers(Toilet, Tub, Shower), and Wheel Chair Management Need for life care planner - to improve, our occupation therapists will perform initial evaluation of pt's status upon admission and devise an individualized program for Caregiver Training Cognitive deficits - to improve, our occupation therapists will perform initial evaluation of pt's s tatus upon admission and devise an individualized program for Cognition - orientation - Other See attached MAR (Medication Administration Record) - Diet Type Continue Regular - Diet - Liquid Texture Continue Regular - Tube Feed Continue N/A - Bladder care per protocol - Weight Bearing Precaution WBAT right LE - Fall Precaution Bed alarm TABS alarm Wheel chair alarm - Skin care per protocol - Diet - Solid Texture Continue Regular - Shower allowing shower for Dementia, TBI, Stroke, or others - Balance for Weakness - Bed mobility for ADL deficits - Cognition - orientation for Dementia - Dressing Status: indep for ADL deficits - Eating for ADL deficits - Grooming Status: indep for ADL deficits - Toilet Transfer for ADL deficits Status: indep - Bed to Chair Transfer SELECT Status: indep for ADL deficits - Tub Transfer for ADL deficits Status: indep - Hygiene for ADL deficits - Shower Transfer for ADL deficits Status: indep - Wheel Chair to Bed Transfer Status: indep for ADL deficits FUNCTIONAL STATUS: UPDATED AT WEEKLY TEAM CONFERENCE - Bladder Same accident frequency: 7-Ind - No accidents in the past 7 days - Bowel Same accident frequency: 7-Ind - No accidents in the past 7 days - Walking Same score based on distance walked: 0(N/A) - Wheelchair Same score based on distance traveled: 0(N/A) FUNCTIONAL STATUS: - Self-Care A. Eating modA B. Grooming maxA C. Bathing maxA D. Dressing - Upper modA E. Dressing - Lower maxA F. Toileting modA - Sphincter Control G. Bladder control Porfirio H. Bowel control Porfirio - Transfers Control I. Bed/Chair/Wheelchair maxA J. Toilet maxA K. Tub/Shower maxA - Locomotion L. Walk/Wheelchair (B) maxA M. Stairs ADNO - Communication N. Comprehension (B) maxA O. Expression (B) maxA - Social Cognition P. Social Interaction modA Q. Problem Solving maxA R. Memory modA - Endurance Poor - Balance Poor - Safety Awareness Poor QI SCORES: - Self-Care A. Eating 03-Partial/moderate assistance B. Oral hygiene 03-Partial/moderate assistance C. Toileting hygiene 02-Substantial/maximal assistance E. Shower/bathe self 02-Substantial/maximal assistance F. Upper body dressing 03-Partial/moderate assistance G. Lower body dressing 02-Substantial/maximal assistance H. Putting on/taking off footwear 88-Not attempted due to medical condition or safety concerns - Mobility A. Roll left and right 03-Partial/moderate assistance B. Sit to lying 02-Substantial/maximal assistance C. Lying to sitting on side of bed 03-Partial/moderate assistance D. Sit to stand 03-Partial/moderate assistance E. Chair/[id number] transfer F. Toilet transfer 02-Substantial/maximal assistance G. Car transfer 88-Not attempted due to medical condition or safety concerns I. Walk 10 feet 88-Not attempted due to medical condition or safety concerns J. Walk 50 feet with two turns 88-Not attempted due to medical condition or safety concerns K. Walk 150 feet 88-Not attempted due to medical condition or safety concerns L. Walking 10 feet on uneven surfaces 88-Not attempted due to medical condition or safety concerns M. 1 step (curb) 88-Not attempted due to medical condition or safety concerns N. 4 steps 88-Not attempted due to medical condition or safety concerns O. 12 steps 88-Not attempted due to medical condition or safety concerns P. Picking up object 88-Not attempted due to medical condition or safety concerns R. Wheel 50 feet with two turns 88-Not attempted due to medical condition or safety concerns S. Wheel 150 feet 88-Not attempted due to medical condition or safety concerns - Bladder and Bowel Bladder continence Bowel continence - Endurance Poor - Balance Poor - Safety Awareness Fair CURRENT [facility]. DEFICITS: Self-Care, Mobility, Endurance, Balance, and Safety Awareness SIGNATURE PANEL: (CDT)
[2021-04-11 04:44] LABS: Basophils % 0.5 % (0-1.3); Hematocrit 34.8 % (39.6-49.0); Lymphocytes % 27.8 % (15.3-44.8); MPV 10.3 fL (7.6-11.3); RBC Red Blood Cell Count 4.04 M/uL (4.33-5.43)
[2021-04-11 05:09] LABS: Albumin 2.5 g/dL (3.4-5.0); Magnesium 2.3 mg/dL (1.8-2.4); Potassium 4.8 mmol/L (3.5-5.1); Prealbumin 22.2 mg/dL (20-40)
[2021-04-11 06:01] LABS: Blood Morphology Comment NOT SEEN (NOT SEEN); Platelet Estimate ADEQ
[2021-04-11] MEDS: carvediloL 6.25 MG TAB PO SCH ×2 (08:00→20:04)
[2021-04-11] MEDS: lisinopriL 5 MG TAB PO SCH (08:00)
[2021-04-11] MEDS: DULOXETINE 20 MG CAP PO SCH (08:06)
[2021-04-11] MEDS: VITAMIN D 5,000 UNIT CAP PO SCH (08:06)
[2021-04-11] MEDS: ENSURE ENLIVE 237 ML CAN PO SCH ×2 (08:07→20:05)
[2021-04-11] MEDS: APIXABAN 2.5 MG TABLET PO SCH ×2 (08:07→20:04)
[2021-04-11] MEDS: CYANOCOBALAMIN 1,000 MCG TAB PO SCH (08:07)
[2021-04-11] MEDS: FUROSEMIDE 20 MG TABLET PO SCH (08:07)
[2021-04-11] MEDS: ZINC SULFATE 220 MG CAP PO SCH (08:07)
[2021-04-11] MEDS: ASCORBIC ACID 500 MG TABLET PO SCH ×2 (08:07→20:04)
[2021-04-11] MEDS: ATORVASTATIN 80 MG TAB PO SCH (20:04)
[2021-04-11] MEDS: MELATONIN 3 MG TABLET PO SCH (20:05)
[2021-04-12] MEDS: FUROSEMIDE 20 MG TABLET PO SCH (08:00)
[2021-04-12] MEDS: DULOXETINE 20 MG CAP PO SCH (09:08)
[2021-04-12] MEDS: ZINC SULFATE 220 MG CAP PO SCH (09:08)
[2021-04-12] MEDS: ASCORBIC ACID 500 MG TABLET PO SCH ×2 (09:08→20:31)
[2021-04-12] MEDS: lisinopriL 5 MG TAB PO SCH (09:08)
[2021-04-12] MEDS: CYANOCOBALAMIN 1,000 MCG TAB PO SCH (09:09)
[2021-04-12] MEDS: carvediloL 6.25 MG TAB PO SCH ×2 (09:09→20:00)
[2021-04-12] MEDS: VITAMIN D 5,000 UNIT CAP PO SCH (09:10)
[2021-04-12] MEDS: APIXABAN 2.5 MG TABLET PO SCH ×2 (09:10→20:30)
[2021-04-12] MEDS: ENSURE ENLIVE 237 ML CAN PO SCH ×2 (09:13→20:31)
--- NOTE | 2021-04-12 09:45 | P.RH.PN ---
Estimated Length of Stay: 21 Expected Discharge Date: 04/16/21 Discharge Disposition Plan: Home Family Support: Yes Custodial Goal: Mobility, Transfers, Self Care Vital Signs: Last Vital Signs Temp 97.6 F 04/12/21 08:00 Pulse 72 04/12/21 09:09 Resp 16 04/12/21 08:00 BP 104/53 L 04/12/21 09:09 Pulse Ox 98 04/12/21 08:00 Laboratory: Laboratory Last Values WBC 7.10 K/uL (4.3-10.9) D 04/11/21 04:06 RBC 4.04 M/uL (4.33-5.43) L 04/11/21 04:06 Hgb 11.6 g/dL (13.6-17.9) L 04/11/21 04:06 Hct 34.8 % (39.6-49.0) L 04/11/21 04:06 MCV 86.2 fL (80-100) 04/11/21 04:06 MCH 28.8 pg (27.0-35.0) 04/11/21 04:06 MCHC 33.4 g/dL (32.0-36.0) 04/11/21 04:06 RDW 14.2 % (12.1-15.2) 04/11/21 04:06 Plt Count 145 K/uL (152-406) L D 04/11/21 04:06 MPV 10.3 fL (7.6-11.3) 04/11/21 04:06 Neutrophils % 48.4 % (41.7-73.7) 04/11/21 04:06 Lymphocytes % 27.8 % (15.3-44.8) 04/11/21 04:06 Monocytes % 16.6 % (3.3-12.3) H 04/11/21 04:06 Eosinophils % 6.7 % (0-4.4) H 04/11/21 04:06 Basophils % 0.5 % (0-1.3) 04/11/21 04:06 Absolute Neutrophils 3.4 K/uL (1.8-8.0) 04/11/21 04:06 Segmented Neutrophils 56 % (40-80) 04/11/21 04:06 Band Neutrophils 2 % (0-1) H 04/11/21 04:06 Absolute Lymphocytes 2.0 K/uL (0.7-4.9) 04/11/21 04:06 Lymphocytes 27 % (15-42) 04/11/21 04:06 Monocytes 7 % (0-10) 04/11/21 04:06 Absolute Monocytes 1.2 K/uL (0.1-1.3) 04/11/21 04:06 Eosinophils 6 % (0-3) H 04/11/21 04:06 Absolute Eosinophils 0.5 K/uL (0-0.5) 04/11/21 04:06 Absolute Basophils 0.0 K/uL (0-0.5) 04/11/21 04:06 Reactive Lymphocytes 2 % 04/11/21 04:06 Platelet Estimate Adeq 04/11/21 04:06 Morphology Comment Not seen (NOT SEEN) 04/11/21 04:06 Sodium 140 mmol/L (136-145) 04/11/21 04:06 Potassium 4.8 mmol/L (3.5-5.1) 04/11/21 04:06 Chloride 108 mmol/L (98-107) H 04/11/21 04:06 Carbon Dioxide 26 mmol/L (21-32) 04/11/21 04:06 BUN 74 mg/dL (7-18) H 04/11/21 04:06 Creatinine 2.10 mg/dL (0.55-1.3) H 04/11/21 04:06 Estimated GFR 30 mL/min (=/>90) L 04/11/21 04:06 Glucose 107 mg/dL (74-106) H 04/11/21 04:06 Calcium 8.9 mg/dL (8.5-10.1) 04/11/21 04:06 Magnesium 2.3 mg/dL (1.8-2.4) 04/11/21 04:06 Albumin 2.5 g/dL (3.4-5.0) L 04/11/21 04:06 Prealbumin 22.2 mg/dL (20-40) 04/11/21 04:06 Urine Color Yellow (Yellow) 03/27/21 20:18 Urine Appearance Cloudy (Clear) 03/27/21 20:18 Urine pH 5.0 (5.0-7.0) 03/27/21 20:18 Ur Specific [place] 1.015 (1.005-1.030) 03/27/21 20:18 Glucose (UA)(Auto) Negative (Negative) 03/27/21 20:18 Urine Ketones Negative (Negative) 03/27/21 20:18 Urine Blood 3+ (Negative) H 03/27/21 20:18 Urine Nitrite Negative (Negative) 03/27/21 20:18 Urine Bilirubin Negative (Negative) 03/27/21 20:18 Urine Urobilinogen 0.2 mg/dL (0.2-1.0) 03/27/21 20:18 Ur Leukocyte Esterase Trace (Negative) H 03/27/21 20:18 Urine RBC >50 /HPF (NONE SEEN) H 03/27/21 20:18 Urine WBC <5 /HPF (<5) 03/27/21 20:18 Ur Squamous Epith Cells MINES INSPECTOR 03/27/21 20:18 Ur Urothelial Cells <5 /HPF (NONE SEEN) 03/27/21 20:18 Urine Bacteria <20 /HPF (NONE SEEN) 03/27/21 20:18 Urine Mucus Slight /HPF (NONE SEEN) 03/27/21 20:18 Urine Culture Reflexed Reflexed 03/27/21 20:18 Urine Total Protein Trace (Negative) H 03/27/21 20:18 SARS-CoV-2 Rap RNA(RT-PCR) Positive (NEGATIVE) A 03/27/21 13:55 Weight: 163 lb 11.2 oz Wound Present: No Closed Surgical Incision Present: No Negative Pressure Wound Therapy Present: No Physician Update: Labs reviewed and are stable. He is making fair progress with speech therapy. Now using more verbal language, problem solving with queing. At min assistance with showers, max assitance for lower body dressing. Min to mod assistance with transfers. Walks 40' with min assistance. Comment: No skin breakdown Functional Improvement: Pt is progressing with all goals and is improving endurance with ambulation Summary: Patient's care plan and halfway goals have been reviewed and revised as necessary. Please see the Rehabilitation Signature page for all necessary signatures.
[2021-04-12] MEDS: ATORVASTATIN 80 MG TAB PO SCH (20:31)
[2021-04-12] MEDS: MELATONIN 3 MG TABLET PO SCH (20:31)
[2021-04-13 05:40] VITALS: BMI 27.3
[2021-04-13] MEDS: FUROSEMIDE 20 MG TABLET PO SCH (08:00)
[2021-04-13] MEDS: DULOXETINE 20 MG CAP PO SCH (09:17)
[2021-04-13] MEDS: ASCORBIC ACID 500 MG TABLET PO SCH ×2 (09:17→20:28)
[2021-04-13] MEDS: ZINC SULFATE 220 MG CAP PO SCH (09:17)
[2021-04-13] MEDS: APIXABAN 2.5 MG TABLET PO SCH ×2 (09:18→20:28)
[2021-04-13] MEDS: carvediloL 6.25 MG TAB PO SCH ×2 (09:18→20:28)
[2021-04-13] MEDS: VITAMIN D 5,000 UNIT CAP PO SCH (09:18)
[2021-04-13] MEDS: CYANOCOBALAMIN 1,000 MCG TAB PO SCH (09:18)
[2021-04-13] MEDS: lisinopriL 5 MG TAB PO SCH (09:18)
[2021-04-13] MEDS: ENSURE ENLIVE 237 ML CAN PO SCH ×2 (09:19→20:00)
[2021-04-13] MEDS: MELATONIN 3 MG TABLET PO SCH (20:28)
[2021-04-13] MEDS: ATORVASTATIN 80 MG TAB PO SCH (20:28)
[2021-04-14] MEDS: ZINC SULFATE 220 MG CAP PO SCH (07:56)
[2021-04-14] MEDS: DULOXETINE 20 MG CAP PO SCH (07:57)
[2021-04-14] MEDS: APIXABAN 2.5 MG TABLET PO SCH ×2 (07:57→19:42)
[2021-04-14] MEDS: CYANOCOBALAMIN 1,000 MCG TAB PO SCH (07:57)
[2021-04-14] MEDS: VITAMIN D 5,000 UNIT CAP PO SCH (07:57)
[2021-04-14] MEDS: ASCORBIC ACID 500 MG TABLET PO SCH ×2 (07:57→19:41)
[2021-04-14] MEDS: ENSURE ENLIVE 237 ML CAN PO SCH ×2 (07:58→19:42)
[2021-04-14] MEDS: FUROSEMIDE 20 MG TABLET PO SCH (07:58)
[2021-04-14] MEDS: lisinopriL 5 MG TAB PO SCH (08:00)
[2021-04-14] MEDS: carvediloL 6.25 MG TAB PO SCH ×2 (08:00→19:42)
[2021-04-14] MEDS: ATORVASTATIN 80 MG TAB PO SCH (19:41)
[2021-04-14] MEDS: MELATONIN 3 MG TABLET PO SCH (19:42)
[2021-04-15] MEDS: DULOXETINE 20 MG CAP PO SCH (07:39)
[2021-04-15] MEDS: ZINC SULFATE 220 MG CAP PO SCH (07:40)
[2021-04-15] MEDS: FUROSEMIDE 20 MG TABLET PO SCH (07:40)
[2021-04-15] MEDS: APIXABAN 2.5 MG TABLET PO SCH ×2 (07:41→19:47)
[2021-04-15] MEDS: ENSURE ENLIVE 237 ML CAN PO SCH ×2 (07:42→19:47)
[2021-04-15] MEDS: ASCORBIC ACID 500 MG TABLET PO SCH ×2 (07:42→19:46)
[2021-04-15] MEDS: CYANOCOBALAMIN 1,000 MCG TAB PO SCH (07:43)
[2021-04-15] MEDS: VITAMIN D 5,000 UNIT CAP PO SCH (07:43)
[2021-04-15] MEDS: carvediloL 6.25 MG TAB PO SCH ×3 (08:00→19:46)
[2021-04-15] MEDS: lisinopriL 5 MG TAB PO SCH ×2 (08:00→14:20)
--- NOTE | 2021-04-15 19:42 | R.PN ---
PROGRESS NOTES ENCOUNTER DATE AND TIME: 04/15/2021 19:37 (CDT) NAME BRENT MCCLELLAN DATE OF : 1935 DATE OF ADMISSION: 03/27/2021 12:07 (CDT) Thrombosis of left middle cerebral artery, Post covid-19 syndromeCHIEF COMPLAINT: Stroke, aphasia, right sided weakness and numbness, post covid-19 syndrome SUBJECTIVE: Pt denied any depression. Pt denied any Shortness of Breath. WBC 7.1, Hgb 11.6, Plt 145, prealbumin 22.2, Senior Payroll Specialist 2.1, UA trace esterase, > 50 RBCs. Covid-19 positive . Ambulated 285'' using a rolling walker with contact guard assistance. Self-propelled wheelchair 250' with standby assistance. VITAL SIGNS Temperature: 98.0 F SBP/DBP: 135/59 Pulse: 72 Resp: 16 MEDICATION ALLERGIES: No Known Drug Allergies (NKDA) ENVIRONMENTAL ALLERGIES: None Known - Substance Allergies None Known - Other Allergies None Known NURSING: - Shower allowing shower - Bladder care per protocol - Skin care per protocol PRECAUTIONS: - Fall Precaution Bed alarm TABS alarm Wheel chair alarm - Weight Bearing Precaution WBAT right LE ACTIVITIES OOB only with supervision THERAPIES: - Dietary and Nutrition Adequate Nutrition. Nutritional Education. Nutritional Supplements. - Occupational Therapy Cognitive Retraining. Evaluate and Treat. ADL Training. Community Reintegration. Eating. Household Ta sks. Patient/Family Education. Transfer Training. UE ROM. UE Strengthening. Safety Awareness. Adaptiv e Equipment. - Speech Therapy Cognitive Training. Expressive Language Skills. Memory Strategies. Receptive Language Skills. Speech Intelligibility Training. - Physical Therapy Evaluate and Treat. Balance Training. Gait Training. LE ROM. LE Strengthening. Medical Equipment Asse ssment and Evaluation. Mobility Training. Patient/Family Education. Safety Awareness. Transfer Traini ng. Wheelchair Management. PHYSICAL EXAM - Gen Alert and awake Lying in bed No apparent distress Oriented to: person, time, and place - Skin No skin breakdown. No abnormalities - Eyes No abnormalities - ENMT No abnormalities - Neck No abnormalities - CVS RRR - Chest No abnormalities - Resp No wheezing - Abd Soft - GI Non distended Deferred - Campbell catheter, will remove in the AM. - Ext No significant edema - MSK 4+/5 weakness in right upper and 3/5 right lower extremity. - Neuro 4+/5 weakness in right upper and 3/5 right lower extremity. Expressive aphasia, dysarthria - Psych No abnormalities ASSESSMENT: Pt. is a 85 yo Right-handed male.On 03/05/2021 Pt. presented to [facility] with sudden onset of right-side weakness.On 03/05/2021 he was admitted to [facility] with diagnosis Thrombosis of lef t middle cerebral artery, Post covid-19 syndrome.His impairment category is Stroke 01 - Right Body ( Left Brain) (01.2).Pre-morbidly, Pt. was supervision Locomotion, Social Cognition, Safety Awareness, Transfers Control, and Balance; and he had good Endurance, Self-Care, Communication, and Sphincter Co ntrol.Currently, he has deficits of Locomotion, Social Cognition, Safety Awareness, Transfers Control , Sphincter Control, Balance, Self-Care, and Communication.Pt. is now referred to [facility] for acute in-patient rehabilitation in order to maximize patient's functional independ ence in activities of daily living, strength, ROM, and mobility.- Rehab Goal Patient has realistic goal of being discharged at assistance level 7-Ind to reside at Home with Fami ly/Relatives. MDM/PLAN: - Physical Therapy Weakness - to improve, our physical therapists will perform initial evaluation of pt's status upon a dmission and devise an individualized program for Aquatic Therapy, Neuromuscular Reeducation, and Str engthening Poor balance - to improve, our physical therapists will perform initial evaluation of pt's status up on admission and devise an individualized program for Balance Training Inability to transfer - to improve, our physical therapists will perform initial evaluation of pt's status upon admission and devise an individualized program for Bed mobility Need in caregiver upon discharge - to improve, our physical therapists will perform initial evaluati on of pt's status upon admission and devise an individualized program for Caregiver Training Poor endurance - to improve, our physical therapists will perform initial evaluation of pt's status upon admission and devise an individualized program for Endurance Training Gait dysfunction - to improve, our physical therapists will perform initial evaluation of pt's statu s upon admission and devise an individualized program for Gait Training, and Wheel Chair mobility Need for home safety evaluation - to improve, our physical therapists will perform initial evaluatio n of pt's status upon admission and devise an individualized program for Home Evaluation New precaution - to improve, our physical therapists will perform initial evaluation of pt's status upon admission and devise an individualized program for Patient precaution education Edema - to improve, our physical therapists will perform initial evaluation of pt's status upon admi ssion and devise an individualized program for Elevation Training, and Lymphedema Therapy - Occupational Therapy Weakness - to improve, our occupation therapists will perform initial evaluation of pt's status upon admission and devise an individualized program for Aquatic Therapy, Balance, Endurance, UE ROM, and UE strengthening ADL deficits - to improve, our occupation therapists will perform initial evaluation of pt's status upon admission and devise an individualized program for Bathing, Bed mobility, Community Reintegratio n, Cooking, Dressing, Eating, Fine Motor Skills, Grooming, Homemaking, Kitchen Mobility, Laundry, Pat ient Education, Safety Awareness, Splinting - Positioning, Transfers(Toilet, Tub, Shower), and Wheel Chair Management Need for long term care social worker - to improve, our occupation therapists will perform initial evaluation of pt's status upon admission and devise an individualized program for Caregiver Training Cognitive deficits - to improve, our occupation therapists will perform initial evaluation of pt's s tatus upon admission and devise an individualized program for Cognition - orientation - Other See attached MAR (Medication Administration Record) - Diet Type Continue Regular - Diet - Liquid Texture Continue Regular - Tube Feed Continue N/A - Bladder care per protocol - Weight Bearing Precaution WBAT right LE - Fall Precaution Bed alarm TABS alarm Wheel chair alarm - Skin care per protocol - Diet - Solid Texture Continue Regular - Shower allowing shower for Dementia, TBI, Stroke, or others - Balance for Weakness - Bed mobility for ADL deficits - Cognition - orientation for Dementia - Dressing Status: indep for ADL deficits - Eating for ADL deficits - Grooming Status: indep for ADL deficits - Toilet Transfer for ADL deficits Status: indep - Bed to Chair Transfer SELECT Status: mod for ADL deficits - Tub Transfer for ADL deficits Status: indep - Hygiene for ADL deficits - Shower Transfer for ADL deficits Status: indep - Wheel Chair to Bed Transfer Status: indep for ADL deficits FUNCTIONAL STATUS: UPDATED AT WEEKLY TEAM CONFERENCE - Bladder Same accident frequency: 7-Ind - No accidents in the past 7 days - Bowel Same accident frequency: 7-Ind - No accidents in the past 7 days - Walking Same score based on distance walked: 0(N/A) - Wheelchair Same score based on distance traveled: 0(N/A) FUNCTIONAL STATUS: - Self-Care A. Eating modA B. Grooming maxA C. Bathing maxA D. Dressing - Upper modA E. Dressing - Lower maxA F. Toileting modA - Sphincter Control G. Bladder control Porfirio H. Bowel control Porfirio - Transfers Control I. Bed/Chair/Wheelchair maxA J. Toilet maxA K. Tub/Shower maxA - Locomotion L. Walk/Wheelchair (B) maxA M. Stairs ADNO - Communication N. Comprehension (B) maxA O. Expression (B) maxA - Social Cognition P. Social Interaction modA Q. Problem Solving maxA R. Memory modA - Endurance Poor - Balance Poor - Safety Awareness Poor QI SCORES: - Self-Care A. Eating 03-Partial/moderate assistance B. Oral hygiene 03-Partial/moderate assistance C. Toileting hygiene 02-Substantial/maximal assistance E. Shower/bathe self 02-Substantial/maximal assistance F. Upper body dressing 03-Partial/moderate assistance G. Lower body dressing 02-Substantial/maximal assistance H. Putting on/taking off footwear 88-Not attempted due to medical condition or safety concerns - Mobility A. Roll left and right 03-Partial/moderate assistance B. Sit to lying 02-Substantial/maximal assistance C. Lying to sitting on side of bed 03-Partial/moderate assistance D. Sit to stand 03-Partial/moderate assistance E. Chair/[id number] transfer F. Toilet transfer 02-Substantial/maximal assistance G. Car transfer 88-Not attempted due to medical condition or safety concerns I. Walk 10 feet 88-Not attempted due to medical condition or safety concerns J. Walk 50 feet with two turns 88-Not attempted due to medical condition or safety concerns K. Walk 150 feet 88-Not attempted due to medical condition or safety concerns L. Walking 10 feet on uneven surfaces 88-Not attempted due to medical condition or safety concerns M. 1 step (curb) 88-Not attempted due to medical condition or safety concerns N. 4 steps 88-Not attempted due to medical condition or safety concerns O. 12 steps 88-Not attempted due to medical condition or safety concerns P. Picking up object 88-Not attempted due to medical condition or safety concerns R. Wheel 50 feet with two turns 88-Not attempted due to medical condition or safety concerns S. Wheel 150 feet 88-Not attempted due to medical condition or safety concerns - Bladder and Bowel Bladder continence Bowel continence - Endurance Poor - Balance Poor - Safety Awareness Fair CURRENT [facility]. DEFICITS: Self-Care, Mobility, Endurance, Balance, and Safety Awareness SIGNATURE PANEL: (CDT)
[2021-04-15] MEDS: ATORVASTATIN 80 MG TAB PO SCH (19:46)
[2021-04-15] MEDS: DOCUSATE NA/SENNA CONC 1 TAB PO PRN (19:46)
[2021-04-15] MEDS: MELATONIN 3 MG TABLET PO SCH (19:46)
[2021-04-16 07:19] VITALS: BP 104/50; TEMP 97.8
[2021-04-16] MEDS: ENSURE ENLIVE 237 ML CAN PO SCH (08:50)
[2021-04-16] MEDS: carvediloL 6.25 MG TAB PO SCH (09:00)
[2021-04-16] MEDS: CYANOCOBALAMIN 1,000 MCG TAB PO SCH (09:00)
[2021-04-16] MEDS: DULOXETINE 20 MG CAP PO SCH (09:00)
[2021-04-16] MEDS: VITAMIN D 5,000 UNIT CAP PO SCH (09:00)
[2021-04-16] MEDS: APIXABAN 2.5 MG TABLET PO SCH (09:00)
[2021-04-16] MEDS: FUROSEMIDE 20 MG TABLET PO SCH (09:00)
[2021-04-16] MEDS: ASCORBIC ACID 500 MG TABLET PO SCH (09:00)
[2021-04-16] MEDS: ZINC SULFATE 220 MG CAP PO SCH (09:00)
[2021-04-16] MEDS: lisinopriL 5 MG TAB PO SCH (09:01)
--- NOTE | 2021-04-19 16:36 | R.PN ---
PROGRESS NOTES ENCOUNTER DATE AND TIME: 04/11/2021 18:31 (CDT) NAME BRENT MCCLELLAN DATE OF : 1935 DATE OF ADMISSION: 03/27/2021 12:07 (CDT) Thrombosis of left middle cerebral artery, Post covid-19 syndromeCHIEF COMPLAINT: Stroke, aphasia, right sided weakness and numbness, post covid-19 syndrome SUBJECTIVE: Pt denied any depression. Pt denied any Shortness of Breath. WBC 7.1, Hgb 11.6, Plt 145, prealbumin 22.2, [employer] 2.1, UA trace esterase, > 50 RBCs. Covid-19 positive . Ambulated 74' using a rolling walker with moderate assistance. Self-propelled wheelchair 90' with con tact guard assistance. VITAL SIGNS Temperature: 97.4 F SBP/DBP: 92/50 Pulse: 78 Resp: 15 MEDICATION ALLERGIES: No Known Drug Allergies (NKDA) ENVIRONMENTAL ALLERGIES: None Known - Substance Allergies None Known - Other Allergies None Known NURSING: - Shower allowing shower - Bladder care per protocol - Skin care per protocol PRECAUTIONS: - Fall Precaution Bed alarm TABS alarm Wheel chair alarm - Weight Bearing Precaution WBAT right LE ACTIVITIES OOB only with supervision THERAPIES: - Dietary and Nutrition Adequate Nutrition. Nutritional Education. Nutritional Supplements. - Occupational Therapy Cognitive Retraining. Evaluate and Treat. ADL Training. Community Reintegration. Eating. Household Ta sks. Patient/Family Education. Transfer Training. UE ROM. UE Strengthening. Safety Awareness. Adapt[employer] e Equipment. - Speech Therapy Cognitive Training. Expressive Language Skills. Memory Strategies. Receptive Language Skills. Speech Intelligibility Training. - Physical Therapy Evaluate and Treat. Balance Training. Gait Training. LE ROM. LE Strengthening. Medical Equipment Asse ssment and Evaluation. Mobility Training. Patient/Family Education. Safety Awareness. Transfer Traini ng. Wheelchair Management. PHYSICAL EXAM - Gen Alert and awake Lying in bed No apparent distress Oriented to: person, time, and place - Skin No skin breakdown. No abnormalities - Eyes No abnormalities - ENMT No abnormalities - Neck No abnormalities - CVS RRR - Chest No abnormalities - Resp No wheezing - Abd Soft - GI Non distended Deferred - Campbell catheter, will remove in the AM. - Ext No significant edema - MSK 4+/5 weakness in right upper and 3/5 right lower extremity. - Neuro 4+/5 weakness in right upper and 3/5 right lower extremity. Expressive aphasia, dysarthria - Psych No abnormalities ASSESSMENT: Pt. is a 85 yo Right-handed male.On 03/05/2021 Pt. presented to [facility] with sudden onset of right-side weakness.On 03/05/2021 he was admitted to [facility] with diagnosis Thrombosis of lef t middle cerebral artery, Post covid-19 syndrome.His impairment category is Stroke 01 - Right Body ( Left Brain) (01.2).Pre-morbidly, Pt. was supervision Locomotion, Social Cognition, Safety Awareness, Transfers Control, and Balance; and he had good Endurance, Self-Care, Communication, and Sphincter Co ntrol.Currently, he has deficits of Locomotion, Social Cognition, Safety Awareness, Transfers Control , Sphincter Control, Balance, Self-Care, and Communication.Pt. is now referred to [facility] for acute in-patient rehabilitation in order to maximize patient's functional independ ence in activities of daily living, strength, ROM, and mobility.- Rehab Goal Patient has realistic goal of being discharged at assistance level 7-Ind to reside at Home with Fami ly/Relatives. MDM/PLAN: - Physical Therapy Weakness - to improve, our physical therapists will perform initial evaluation of pt's status upon a dmission and devise an individualized program for Aquatic Therapy, Neuromuscular Reeducation, and Str engthening Poor balance - to improve, our physical therapists will perform initial evaluation of pt's status up on admission and devise an individualized program for Balance Training Inability to transfer - to improve, our physical therapists will perform initial evaluation of pt's status upon admission and devise an individualized program for Bed mobility Need in caregiver upon discharge - to improve, our physical therapists will perform initial evaluati on of pt's status upon admission and devise an individualized program for Caregiver Training Poor endurance - to improve, our physical therapists will perform initial evaluation of pt's status upon admission and devise an individualized program for Endurance Training Gait dysfunction - to improve, our physical therapists will perform initial evaluation of pt's statu s upon admission and devise an individualized program for Gait Training, and Wheel Chair mobility Need for home safety evaluation - to improve, our physical therapists will perform initial evaluatio n of pt's status upon admission and devise an individualized program for Home Evaluation New precaution - to improve, our physical therapists will perform initial evaluation of pt's status upon admission and devise an individualized program for Patient precaution education Edema - to improve, our physical therapists will perform initial evaluation of pt's status upon admi ssion and devise an individualized program for Elevation Training, and Lymphedema Therapy - Occupational Therapy Weakness - to improve, our occupation therapists will perform initial evaluation of pt's status upon admission and devise an individualized program for Aquatic Therapy, Balance, Endurance, UE ROM, and UE strengthening ADL deficits - to improve, our occupation therapists will perform initial evaluation of pt's status upon admission and devise an individualized program for Bathing, Bed mobility, Community Reintegratio n, Cooking, Dressing, Eating, Fine Motor Skills, Grooming, Homemaking, Kitchen Mobility, Laundry, Pat ient Education, Safety Awareness, Splinting - Positioning, Transfers(Toilet, Tub, Shower), and Wheel Chair Management Need for district manager primary care sales - to improve, our occupation therapists will perform initial evaluation of pt's status upon admission and devise an individualized program for Caregiver Training Cognitive deficits - to improve, our occupation therapists will perform initial evaluation of pt's s tatus upon admission and devise an individualized program for Cognition - orientation - Other See attached MAR (Medication Administration Record) - Diet Type Continue Regular - Diet - Liquid Texture Continue Regular - Tube Feed Continue N/A - Bladder care per protocol - Weight Bearing Precaution WBAT right LE - Fall Precaution Bed alarm TABS alarm Wheel chair alarm - Skin care per protocol - Diet - Solid Texture Continue Regular - Shower allowing shower for Dementia, TBI, Stroke, or others - Balance for Weakness - Bed mobility for ADL deficits - Cognition - orientation for Dementia - Dressing Status: indep for ADL deficits - Eating for ADL deficits - Grooming Status: indep for ADL deficits - Toilet Transfer for ADL deficits Status: indep - Bed to Chair Transfer SELECT Status: mod for ADL deficits - Tub Transfer for ADL deficits Status: indep - Hygiene for ADL deficits - Shower Transfer for ADL deficits Status: indep - Wheel Chair to Bed Transfer Status: indep for ADL deficits FUNCTIONAL STATUS: UPDATED AT WEEKLY TEAM CONFERENCE - Bladder Same accident frequency: 7-Ind - No accidents in the past 7 days - Bowel Same accident frequency: 7-Ind - No accidents in the past 7 days - Walking Same score based on distance walked: 0(N/A) - Wheelchair Same score based on distance traveled: 0(N/A) FUNCTIONAL STATUS: - Self-Care A. Eating modA B. Grooming maxA C. Bathing maxA D. Dressing - Upper modA E. Dressing - Lower maxA F. Toileting modA - Sphincter Control G. Bladder control Porfirio H. Bowel control Porfirio - Transfers Control I. Bed/Chair/Wheelchair maxA J. Toilet maxA K. Tub/Shower maxA - Locomotion L. Walk/Wheelchair (B) maxA M. Stairs ADNO - Communication N. Comprehension (B) maxA O. Expression (B) maxA - Social Cognition P. Social Interaction modA Q. Problem Solving maxA R. Memory modA - Endurance Poor - Balance Poor - Safety Awareness Poor QI SCORES: - Self-Care A. Eating 03-Partial/moderate assistance B. Oral hygiene 03-Partial/moderate assistance C. Toileting hygiene 02-Substantial/maximal assistance E. Shower/bathe self 02-Substantial/maximal assistance F. Upper body dressing 03-Partial/moderate assistance G. Lower body dressing 02-Substantial/maximal assistance H. Putting on/taking off footwear 88-Not attempted due to medical condition or safety concerns - Mobility A. Roll left and right 03-Partial/moderate assistance B. Sit to lying 02-Substantial/maximal assistance C. Lying to sitting on side of bed 03-Partial/moderate assistance D. Sit to stand 03-Partial/moderate assistance E. Chair/[id number]-acrct transfer F. Toilet transfer 02-Substantial/maximal assistance G. Car transfer 88-Not attempted due to medical condition or safety concerns I. Walk 10 feet 88-Not attempted due to medical condition or safety concerns J. Walk 50 feet with two turns 88-Not attempted due to medical condition or safety concerns K. Walk 150 feet 88-Not attempted due to medical condition or safety concerns L. Walking 10 feet on uneven surfaces 88-Not attempted due to medical condition or safety concerns M. 1 step (curb) 88-Not attempted due to medical condition or safety concerns N. 4 steps 88-Not attempted due to medical condition or safety concerns O. 12 steps 88-Not attempted due to medical condition or safety concerns P. Picking up object 88-Not attempted due to medical condition or safety concerns R. Wheel 50 feet with two turns 88-Not attempted due to medical condition or safety concerns S. Wheel 150 feet 88-Not attempted due to medical condition or safety concerns - Bladder and Bowel Bladder continence Bowel continence - Endurance Poor - Balance Poor - Safety Awareness Fair [facility]RENT [facility]. DEFICITS: Self-Care, Mobility, Endurance, Balance, and Safety Awareness SIGNATURE PANEL: (CDT)
--- NOTE | 2021-04-19 16:37 | R.DS ---
DISCHARGE SUMMARY FACILITY [facility] MR# [id number] NAME BRENT ESCOBAR ADDRESS [address] [place] [address] [address]IP [id number] PHONE DATE OF 1935 AGE 85 SSN# [id number] GENDER Male MARITAL STATUS Single (Never ) ENCOUNTER PHYSICIAN Dr. Domo Bland M.D. REFERRING DOCTOR DR. VELÁZQUEZ REFERRING FACILITY [facility] DISCHARGE DIAGNOSIS: - Stroke 01 - Right Body (Left Brain) (01.2) Thrombosis of left middle cerebral artery, Post covid-19 syndrome. 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 NURSING: - Shower allowing shower - Bladder care per protocol - Skin care per protocol PRECAUTIONS: - Fall Precaution Bed alarm TABS alarm Wheel chair alarm - Weight Bearing Precaution WBAT right LE ACTIVITIES OOB only with supervision THERAPIES: - Dietary and Nutrition Adequate Nutrition Nutritional Education Nutritional Supplements - Occupational Therapy Cognitive Retraining Evaluate and Treat ADL Training Community Reintegration Eating Household Tasks Patient/Family Education Transfer Training UE ROM UE Strengthening Safety Awareness Adaptive Equipment - Speech Therapy Cognitive Training Expressive Language Skills Memory Strategies Receptive Language Skills Speech Intelligibility Training - Physical Therapy Evaluate and Treat Balance Training Gait Training LE ROM LE Strengthening Medical Equipment Assessment and Evaluation Mobility Training Patient/Family Education Safety Awareness Transfer Training Wheelchair Management HISTORY OF PRESENT ILLNESS: Pt. is a 85 yo Right-handed male.On 03/05/2021 Pt. presented to [facility] with sudden onset of right-side weakness.On 03/05/2021 he was admitted to [facility] with diagnosis Thrombosis of lef t middle cerebral artery, Post covid-19 syndrome.His impairment category is Stroke 01 - Right Body ( Left Brain) (01.2).Pre-morbidly, Pt. was supervision Locomotion, Social Cognition, Safety Awareness, Transfers Control, and Balance; and he had good Endurance, Self-Care, Communication, and Sphincter Co ntrol.Currently, he has deficits of Locomotion, Social Cognition, Safety Awareness, Transfers Control , Sphincter Control, Balance, Self-Care, and Communication.Pt. is now referred to [facility] for acute in-patient rehabilitation in order to maximize patient's functional independ ence in activities of daily living, strength, ROM, and mobility.- Rehab Goal Patient has realistic goal of being discharged at assistance level 7-Ind to reside at Home with [facility] ly/Relatives. Mr. Escobar is a 85 yo male that lives at home with his daughter and son-in-law that assist him as ne eded. Mr. Escobar has a past medical history of HTN, HLD, CKD, mild dementia, and IHD s/p CABG. Mr. Escobar was admitted to [facility] 03/05/2021 after [facility]. On 03/05/2021, Mr. Escobar's daughter and son-in-law stepped out of the house t o go grocery shopping, upon returning home (4pm.), pt's daughter found Mr. Escobar to be leaning to t he R side and RFD. After suspecting a stroke, pt's daughter took Mr. Escobar to the hospital where a stroke was later determined to be a thrombosis of left middle cerebral artery. Per pt's family member s, pt is consistent with doctor appointments with [facility] doctor. Prior to hospitalization, pt was able to cook well on his own and requires CGA for ADL's. Mr. Escobar's family took patient against medical a dvise from [facility] to return home. Upon returning home, pt tested positive for COVID PNA on 03/16/21. With increased assistance from family members due to low endurance and decreased UB/LB st rength, pt's was transported via ambulance to [facility] 03/20/2021 where he was admitted for pr evious CVA (earlier in the month) and COVID 19. Mr. Escobar reported to [facility] with SOB, co ugh, and respiratory problem. Pt is currently working with PT where he requires moderate assistance f or safe xfers and max assistance for bed mobility due to SOB, fatigue, low endurance, safety awarenes s deficits, and decreased UB/LB strength secondary to decreased OOB activity and CVA. Pt requires int ense acute IRF with interdisciplinary approach from (OT/PT/ST) to address the following: educating pt on bringing food to mouth to decrease spillage due to CVA affecting dominant side, educating pt on c ompensatory strategies for UB/LB dressing due to residual weakness and low endurance, educating pt an d family members on caregiver assistance/compensatory strategies for safe bathing and tub xfers, incr ease UB/LE strengthening to decrease caregiver burden, gait training, balance training, mobility sharan brandon, xfer training, safety awareness, pt/family education, LE/UE ROM, cognitive training, and memory strategies. Pt faces many risks of falls, pressure sores, CVA, infection, DVT, worsening PNA, etc. w ithout assistance of intensive inpatient rehab. With an interdisciplinary approach by acute IRF, pt d emonstrates good potential to increase independence and maximize safety awareness to safely dc. It i s reasonable and necessary for the patient to come to acute IRF for approximately 7-10 days. Mr. Clarita perez is medically stable but in need of 24 hour nursing, doctor supervision, and oversight while rece iving active and ongoing (ST/PT/OT). The patient is reasonably expected to participate in 3 hours of therapy a day/15 hours a week.HOSPITAL COURSE: DIET - LIQUID TEXTURE: On 03/25/2021 Pt was upgraded to Regular Diet - Liquid Texture. DIET - SOLID TEXTURE: On 03/25/2021 Pt was upgraded to Regular Diet - Solid Texture. DIET TYPE: On 03/25/2021 Pt was upgraded to Regular Diet Type. FALL PRECAUTION: On 03/25/2021 the following precautions were added for the patient: Fall Precaution - Wheel chair ala rm, Fall Precaution - TABS alarm, and Fall Precaution - Bed alarm. On 03/28/2021 the following precautions were added for the patient: Fall Precaution - Bed alarm, Fal l Precaution - TABS alarm, and Fall Precaution - Wheel chair alarm. The following precautions were removed for the patient: Fall Precaution - Bed alarm, Fall Precaution - TABS alarm, Fall Precaution - Wheel chair alarm, Fall Precaution - Bed alarm, Fall Precaution - T ABS alarm, and Fall Precaution - Wheel chair alarm. On 03/27/2021 the following precautions were added for the patient: Weight Bearing Precaution - WBAT right LE. On 03/28/2021 the following precautions were added for the patient: Weight Bearing Precaution - WBAT right LE. TUBE FEED: On 03/25/2021 Pt was changed to N/A Tube Feed. WEIGHT BEARING PRECAUTION: DISCHARGE PHYSICAL EXAM - Gen Alert and awake Lying in bed No apparent distress Oriented to: person, time, and place - Skin No skin breakdown. No abnormalities - Eyes No abnormalities - ENMT No abnormalities - Neck No abnormalities - CVS RRR - Chest No abnormalities - Resp No wheezing - Abd Soft - GI Non distended Deferred - Campbell catheter, will remove in the AM. - Ext No significant edema - MSK 4+/5 weakness in right upper and 3/5 right lower extremity. - Neuro 4+/5 weakness in right upper and 3/5 right lower extremity. Expressive aphasia, dysarthria - Psych No abnormalities FUNCTIONAL STATUS: - Self-Care A. Eating 3-modA B. Grooming 5-sup C. Bathing 5-sup D. Dressing - Upper 5-sup E. Dressing - Lower 5-sup F. Toileting 5-sup - Sphincter Control G. Bladder control 5-sup H. Bowel control 5-sup - Transfers Control I. Bed/Chair/Wheelchair 5-sup J. Toilet 5-sup K. Tub/Shower 5-sup - Locomotion L. Walk/Wheelchair (B) 5-sup M. Stairs 0-ADNO - Communication N. Comprehension (B) 5-sup O. Expression (B) 5-sup - Social Cognition P. Social Interaction 5-sup Q. Problem Solving 5-sup R. Memory 4-Porfirio - Endurance Fair - Balance Fair - Safety Awareness Fair QI SCORES: - Self-Care A. Eating 03-Partial/moderate assistance B. Oral hygiene 03-Partial/moderate assistance C. Toileting hygiene 02-Substantial/maximal assistance E. Shower/bathe self 02-Substantial/maximal assistance F. Upper body dressing 03-Partial/moderate assistance G. Lower body dressing 02-Substantial/maximal assistance H. Putting on/taking off footwear 88-Not attempted due to medical condition or safety concerns - Mobility A. Roll left and right 03-Partial/moderate assistance B. Sit to lying 02-Substantial/maximal assistance C. Lying to sitting on side of bed 03-Partial/moderate assistance D. Sit to stand 03-Partial/moderate assistance E. Chair/zpj-ry-gurhi transfer F. Toilet transfer 02-Substantial/maximal assistance G. Car transfer 88-Not attempted due to medical condition or safety concerns I. Walk 10 feet 88-Not attempted due to medical condition or safety concerns J. Walk 50 feet with two turns 88-Not attempted due to medical condition or safety concerns K. Walk 150 feet 88-Not attempted due to medical condition or safety concerns L. Walking 10 feet on uneven surfaces 88-Not attempted due to medical condition or safety concerns M. 1 step (curb) 88-Not attempted due to medical condition or safety concerns N. 4 steps 88-Not attempted due to medical condition or safety concerns O. 12 steps 88-Not attempted due to medical condition or safety concerns P. Picking up object 88-Not attempted due to medical condition or safety concerns R. Wheel 50 feet with two turns 88-Not attempted due to medical condition or safety concerns S. Wheel 150 feet 88-Not attempted due to medical condition or safety concerns - Bladder and Bowel Bladder continence Bowel continence - Endurance Poor - Balance Poor - Safety Awareness Fair DISCHARGE INSTRUCTIONS: - N/A Eliquis 2.5 mg bid. DISCHARGE PLAN, FOLLOW UP CARE PROVISIONS: - Estimated Length of Stay (days) 7. - Consensus on plan Discharge plan has been discussed with primary caregiver. Patient/Family is in agreement with the cristina n. Primary caregiver is in agreement with the plan. - Patient/Family Goals Return home with assistance. - Planned Living Setting Upon Discharge Home, to live with Family/Relatives. Transitional Living. SIGNATURE PANEL: (CDT)
== END 2021-04-16 16:25 | disposition home or self-care (01) | DRG 57 ==
LOC: 5TH 13:22
PROVIDERS: ADMIT Psychiatry & Neurology Neurology with Special Qualifications in Child Neurology; ATTEND Psychiatry & Neurology Neurology with Special Qualifications in Child Neurology
DX: I69.351 Hemiplegia and hemiparesis following cerebral infarction affecting right dominant side (principal); I12.9 Hypertensive chronic kidney disease with stage 1 through stage 4 chronic kidney disease, or unspecified chronic kidney disease; N18.9 Chronic kidney disease, unspecified; Z95.1 Presence of aortocoronary bypass graft; E11.22 Type 2 diabetes mellitus with diabetic chronic kidney disease; I25.10 Atherosclerotic heart disease of native coronary artery without angina pectoris; Z86.16 Personal history of COVID-19; F03.90 Unspecified dementia, unspecified severity, without behavioral disturbance, psychotic disturbance, mood disturbance, and anxiety
CPT/HCPCS: 36415; 80048; 81001; 82040; 83735; 84134; 85025; 87086; 87088; 92507; 92523; 92610; 97110; 97112; 97116; 97127; 97161; 97530; 97542; J7509; U0003

== ENCOUNTER 2021-04-18 22:00 | Inpatient (IN) | payer OTHER ==
[2021-04-18] MEDS ORDERED: NA CHLORIDE 0.9% 100 ML ONE (22:58)
[2021-04-18] MEDS ORDERED: PIPERACIL/TAZO 3.375 GM VIAL IV ONE (22:58)
[2021-04-18 23:08] LABS: Protime INR 1.41
[2021-04-18 23:17] LABS: Albumin 2.4 g/dL (3.4-5.0); Bilirubin Direct 0.4 mg/dL (0-0.2); Bilirubin Total 1.6 mg/dL (0.2-1.0); Potassium 5.3 mmol/L (3.5-5.1); Protein, Total 6.7 g/dL (6.4-8.2)
[2021-04-18 23:20] LABS: Troponin (Emerg Dept Use Only) 9.71 ng/mL (0.0-0.045)
[2021-04-18 23:23] LABS: Absolute Lymphocytes (CBC) 1.6 K/uL (0.7-4.9); Basophils % 0.4 % (0-1.3); Hematocrit 35.1 % (39.6-49.0); Lymphocytes % 12.5 % (15.3-44.8); MPV 10.6 fL (7.6-11.3); RBC Red Blood Cell Count 3.97 M/uL (4.33-5.43)
[2021-04-18] MEDS ORDERED: RSI MEDICATION KIT IV ONE (23:27)
[2021-04-18] MEDS ORDERED: propofoL 1,000 MG/100 ML VIAL IV ONE (23:29)
[2021-04-18] MEDS ORDERED: NA CHLORIDE 0.9% 1,000 ML ONE (23:29)
[2021-04-18] MEDS ORDERED: NOREPINEPHRINE 4mg/D5W 250mL 4 MG/250 ML BAG IV ONE (23:29)
[2021-04-19 00:06] LABS: Urine Blood Negative (Negative); Urine Glucose Negative (Negative); Urine Protein Negative (Negative); Urine pH 5.5 (5.0-7.0)
[2021-04-19 00:36] LABS: Blood Gas Oxyhemoglobin 97.8 % (94-97); Blood O2 Saturation 99.6 % (92-98.5)
[2021-04-19 00:44] LABS: Urine Bacteria <20 /HPF (NONE SEEN); Urine RBC <5 /HPF (NONE SEEN)
[2021-04-19] MEDS ORDERED: ACETAMINOPHEN 650MG/RECT SUPP PR ONE (01:31)
[2021-04-19] MEDS ORDERED: METHYLPREDNISOLONE 125 MG INJ ONE (01:31)
[2021-04-19] MEDS ORDERED: NOREPINEPHRINE 4mg/D5W 250mL 4 MG/250 ML BAG IV ONE ×2 (01:34→03:30)
[2021-04-19] MEDS ORDERED: propofoL 1,000 MG/100 ML VIAL IV ONE (03:34)
--- NOTE | 2021-04-19 04:09 | ER ---
Nurse's Notes [facility] Name: Brodie Escobar Age: 85 yrs Sex: Male : 1935 Arrival Date: 04/18/2021 Time: 22:04 Bed 4 Private MD: Diagnosis: Pneumonia due to SARS-associated coronavirus;Severe sepsis with septic shock;Acute respiratory failure with hypoxia Presentation: 04/18 22:11 Chief complaint: EMS states: they were toned out for report of pt with respiratory bb distress pt O2 sats were 86% on room air. Coronavirus screen: difficulty breathing. Ebola Screen: No symptoms or risks identified at this time. Initial Sepsis Screen: Does the patient meet any 2 criteria? RR > 20 per min. HR > 90 bpm. Yes Does the patient have a suspected source of infection? Yes: Productive cough/pneumonia Risk Assessment: Do you want to hurt yourself or someone else? Patient reports no desire to harm self or others. Onset of symptoms was April 18, 2021. 22:11 Method Of Arrival: EMS: [facility] bb 22:11 Acuity: JENNIFER 2 bb 22:16 Care prior to arrival: Medication(s) given: Normal saline infusion, 250 mLs IV bb initiated. 20 GA, in the right wrist, Glucose check: 200 Oxygen administered. via nasal cannula. Triage Assessment: 22:54 General: Appears distressed, well developed, Behavior is anxious. Pain: Complains of wg pain in abdomen. Cardiovascular: Rhythm is sinus rhythm. Respiratory: Airway is patent Trachea midline Respiratory effort is even, labored, Respiratory pattern is tachypnea Patient placed on BiPAP: the patient has moderate shortness of breath. Historical: - Allergies: 04/19 01:06 No Known Allergies; bb - Home Meds: 04/18 22:24 furosemide 20 mg Oral tab 1 tab once daily [Active]; Imodium A-D 2 mg oral tab 2 tabs bb every 4 hours [Active]; lisinopril 5 mg Oral tab 1 tab once daily [Active]; melatonin 3 mg Oral tab nightly [Active]; sennosides 8.6 mg oral tab 2 tabs once daily [Active]; vit D3 5000 units daily [Active]; zinc sulfate 220 mg Oral cap daily [Active]; - PMHx: 22:24 acid reflux; Chronic Kidney disease stage 3; Coronary Arteriosclerosis; GERD; bb Hyperlipidemia; overactive bladder; prostate problems; Hypertension; Cerebrovascular accident; - Immunization history:: Adult Immunizations unknown, Client reports receiving the 2nd dose of the Covid vaccine, Date received: September 10, 2020 Pfizer Client reports receiving the 1st dose of the Covid vaccine, August 20, 2020. - Social history:: Smoking status: unknown. - Family history:: not pertinent. - Hospitalizations: : Patient was recently seen at. - Code Status:: Full code. Assessment: 23:07 Reassessment: Dr Keith at bedside for intubation as well as Osman RN, Mary RN, santhosh RN, nish Cuello RT and Hang RT. 23:45 Reassessment: No changes from previously documented assessment. Pt remains on propofol wg and levophed. Both drips titrated to keep MAP >65 and keep patient sedated. General:. Neuro: Level of Consciousness is Sedated with propofol. Cardiovascular: Rhythm is atrial fibrillation. Respiratory: Ventilator assessment: ET Tube: 7.5 Breath sounds are diminished bilaterally. GI: Abdomen is round obese, Oral gastric tube to suction. Bowel sounds present X 4 quads. GI: Stools are reported to be normal. : Campbell in place to gravity drainage. Derm: No deficits noted. 23:45 Reassessment: Pt placed in wrist restraints for safety. wg 23:45 Respiratory: Ventilator assessment: ET Tube: 23 cm at lip. Respiratory Rate: 24 HOB > wg 30 degrees. Oral care provided. Suction provided. Color of output Dark Brown 04/19 00:00 Reassessment: No changes from previously documented assessment. Pt remains on propofol wg and levophed. Both drips titrated to keep MAP >65 and keep patient sedated. 00:53 Reassessment: pt to CT via stretcher on ventilator, accompanied by RT and Osman RN. bb 01:00 Reassessment: No changes from previously documented assessment. Pt remains on propofol wg and levophed. Both drips titrated to keep MAP >65 and keep patient sedated. 02:00 Reassessment: No changes from previously documented assessment. Pt remains on propofol wg and levophed. Both drips titrated to keep MAP >65 and keep patient sedated. 02:00 Reassessment: Central line in right groin removed by Dr. Keith. Direct pressure applied wg for 30mins. No obvious bleeding noted. Sand bag applied to site following direct pressure. 03:00 Reassessment: No changes from previously documented assessment. Pt remains on propofol wg and levophed. Both drips titrated to keep MAP >65 and keep patient sedated. 03:15 Reassessment: Dr. Keith placed central line in left side of neck. Sterile central line wg dressing applied. Awaiting confirmation of placement. 04:12 Reassessment: No changes from previously documented assessment. Pt remains on propofol wg and levophed. Both drips titrated to keep MAP >65 and keep patient sedated. 04:31 Reassessment: Pt deep suctioned through ET tube (Closed system) as needed to clear wg secretions and maintain oxygenation. 04:58 Reassessment: No changes from previously documented assessment. Pt remains on propofol wg and levophed. Both drips titrated to keep MAP >65 and keep patient sedated. 04:59 Reassessment: Triple lumen central line flushing well, good blood return. 05:15 Reassessment: Pt admitted to ICU however remains in the ER until shift change. See [facility] charting. Vital Signs: 04/18 22:11 BP 73 / 57; Pulse 103; Resp 46 S; Temp 97.8(TE); Pulse Ox 96% on 4 lpm NC; Weight 81.65 bb kg (R); Height 5 ft. 7 in. (170.18 cm) (R); 22:20 Temp 100.9(R); bb 23:10 BP 60 / 28; Pulse 104; Resp 28 S; Pulse Ox 66% on BiPAP; bb 23:14 BP 57 / 38; Pulse 107; Resp 29 A; Pulse Ox 91% on 100% FiO2 ETT vent; bb 23:19 BP 94 / 69; Pulse 110; Resp 24 A; bb 23:23 BP 109 / 49; Pulse 114; Resp 22 A; bb 23:29 BP 107 / 67; Pulse 104; Resp 40 A; Pulse Ox 90% on 100% FiO2 ETT vent; bb 23:32 BP 86 / 62; Pulse 112; Resp 26 S; Pulse Ox 99% on 100% FiO2 ETT vent; bb 04/19 00:00 BP 90 / 48; Pulse 118; Resp 24; Pulse Ox 97% on 100% FiO2 ETT vent; wg 00:30 BP 84 / 54; Pulse 120; Resp 24; Pulse Ox 96% on 100% FiO2 ETT vent; wg 01:00 BP 87 / 49; Pulse 121; Resp 27; Temp 98.5(R); Pulse Ox 95% on 100% FiO2 ETT vent; 01:30 BP 79 / 50; Pulse 127; Resp 26; Pulse Ox 95% on 100% FiO2 ETT vent; 02:00 BP 98 / 59; Pulse 120; Resp 24; Pulse Ox 95% on 100% FiO2 ETT vent; 02:00 BP 81 / 47; Pulse 124; Resp 26; Temp 98.5(R); Pulse Ox 96% on 100% FiO2 ETT vent; 02:30 BP 108 / 62; Pulse 116; Resp 27; Temp 98.4(R); Pulse Ox 96% on 100% FiO2 ETT vent; 03:00 BP 109 / 69; Pulse 123; Resp 24; Temp 98.4(R); Pulse Ox 96% on 100% FiO2 ETT vent; 03:30 BP 121 / 71; Pulse 122; Resp 26; Temp 98.6(R); Pulse Ox 97% on 100% FiO2 ETT vent; 03:54 BP 106 / 75; Pulse 122; Resp 26; Temp 98.6; Pulse Ox 98% on 100% FiO2 ETT vent; 04:28 BP 105 / 75; Pulse 122; Resp 24; Temp 98.4(R); Pulse Ox 96% on 100% FiO2 ETT vent; 04:58 BP 113 / 74; Pulse 124; Resp 27; Temp 98.5(R); Pulse Ox 96% on 100% FiO2 ETT vent; 04/18 22:11 Body Mass Index 28.19 (81.65 kg, 170.18 cm) Vitals: 04:58 Cardiac Rhythm Assessment Atrial fibrillation W/rapid ventricular response. ED Course: 04/18 22:04 Patient arrived in ED. mw2 22:06 Basilio Keith MD is Attending Physician. rn 22:11 Patient RT at bedside for placement of Bipap. EKG completed in triage. Results shown to nish ROONEY. 22:14 Triage completed. bb 22:35 Chest Single View XRAY In Process Unspecified. EDMS 22:51 Osman Yanez, RN is Primary Nurse. wg 22:53 Basic Metabolic Panel Sent. wg 22:53 Blood Culture Adult (2) Sent. wg 22:53 CBC with Diff Sent. wg 22:53 CPK Sent. wg 22:53 LFT's Sent. wg 22:53 Lactate Sent. wg 22:53 Lipase Sent. wg 22:53 Procalcitonin Sent. wg 22:53 Protime (+inr) Sent. wg 22:53 Ptt, Activated Sent. wg 22:53 Troponin (emerg Dept Use Only) Sent. wg 22:54 BIPAP Sent. wg 22:56 COVID swab sent to lab. bb 23:00 Arm band placed on Patient placed in an exam room, on a stretcher, on oxygen, on wg blocking machine operator, on pulse oximetry. 23:00 Patient has correct armband on for positive identification. Placed in gown. Bed in low wg position. Side rails up X2. computer numerical control programmer on. Pulse ox on. NIBP on. 23:07 Assisted provider with intubation using 7.5 mm ETT via oral route. ET tube secured at bb 23cm at the teeth. Set up intubation tray. Intubated by Basilio Keith MD Placement verified by CO2 detector w/ + color change, auscultating bilateral breath sounds, CXR, Patient tolerated well. 23:18 oralgastric tube inserted by Mary NICOLE and verified by auscultation, return of gastric bb contents and Xray. Pt tolerated well. 23:26 Assisted provider with central line placement. Set up central line tray. Triple lumen bb line placed in right femoral. Line placed by Basilio Keith MD Placement verified by blood return, Dressed with Tegaderm, Patient tolerated well. 04/19 00:25 CT Chest Abdomen Pelvis W/O Contrast In Process Unspecified. EDMS 00:46 Chest Single View XRAY In Process Unspecified. EDMS 02:30 Inserted saline lock: 20 gauge in left hand, using aseptic technique. wg 04:07 Gabriel Cisneros MD is Hospitalizing Provider. rn 04:17 EKG done, by ED staff. cs9 04:20 XRAY Chest (1 view) In Process Unspecified. EDMS 05:15 Patient admitted, IV remains in place. wg 05:27 Troponin (emerg Dept Use Only) Sent. wg Administered Medications: 04/18 22:30 Drug: NS 0.9% 500 ml Route: IV; Rate: bolus; Site: left forearm; wg 04/19 04:42 Follow up: IV Status: Completed infusion; IV Intake: 500ml 04:42 Follow up: IV Status: Completed infusion; IV Intake: 500ml 04/18 22:37 Drug: Zosyn (piperacillin-tazobactam) 3.375 grams Route: IVPB; Infused Over: 60 mins; Site: left forearm; 04/19 04:41 Follow up: IV Status: Completed infusion; IV Intake: 100ml 04/18 22:45 Drug: NS 0.9% 500 ml Route: IV; Rate: bolus; Infused Over: 15 mins; Site: left forearm; 23:10 Drug: Etomidate 20 mg {Note: by Osman RN.} Route: IVP; Site: right wrist; 04/19 04:41 Follow up: Response: No adverse reaction 04/18 23:10 Drug: Succinylcholine 120 mg {Note: by Osman RN.} Route: IVP; Site: right wrist; 04/19 04:41 Follow up: Response: No adverse reaction 04/18 23:11 Drug: Levophed (norepinephrine) (4 mg/250 mL D5W 4 mcg/min {Note: by Osman RN.} Route: bb IV; Rate: calculated rate; Site: right wrist; 23:15 Drug: NS 0.9% 1000 ml {Note: by Osman RN.} Route: IV; Rate: 1000 ml; Site: right wrist; 04/19 04:41 Follow up: IV Intake: 1000ml 04/18 23:23 Drug: Propofol 5 mcg/kg/min {Note: by Osman RN.} Route: IV; Rate: calculated rate; Site: right wrist; 04/19 06:30 Follow up: Response: No adverse reaction 01:10 Drug: Tylenol Suppository 650 mg Route: [place]; 04:40 Follow up: Response: No adverse reaction 01:10 Drug: SOLU-Medrol (methylPrednisoLONE) 125 mg Route: IVP; Infused Over: 2 mins; Site: right femoral; 04:40 Follow up: Response: No adverse reaction 04:30 Drug: D5-NS 1000 ml Route: IV; Rate: 125 ml/hr; Site: right forearm; 06:30 Follow up: IV Status: Completed infusion; IV Intake: 250ml Intake: 04:41 IV: 1000ml; Total: 1000ml. wg 04:41 IV: 100ml; Total: 1100ml. wg 04:42 IV: 500ml; Total: 1600ml. wg 04:42 IV: 500ml; Total: 2100ml. wg 06:30 IV: 250ml; Total: 2350ml. Ventilator: 04/18 23:13 Fi02: 100%; Rate: 24min; T.V.: 500ml; Peep: 5cm; Mode: CMV; ET tube: 7.5 fr; bb Outcome: 04/19 04:09 Decision to Hospitalize by Provider. rn 08:29 Admitted to ICU accompanied by nurse. ss 08:29 Patient left the ED. Signatures: Dispatcher [employer] EDDiamond Stark RN RN Basilio Keith MD MD rn Smirch, Shelby, RN RN Ana Lilia Blanco mw2 Osman Yanez RN wg Stanford, Christine cs9 Corrections: (The following items were deleted from the chart) 04:06 04:03 Reassessment: No changes from previously documented assessment. Pt remains on propofol and levophed. Both drips titrated to keep MAP >65 and keep patient sedated. 04:21 04/18 22:11 Arm band placed on Patient placed in an exam room, on a stretcher, on wg oxygen, on blocking machine operator, on pulse oximetry, 04/19 04:26 04:25 Inserted saline lock: 20 gauge in left hand, using aseptic technique. [facility] : 01:30 BP 79 / 50; Pulse 127bpm; Resp 24bpm; Pulse Ox 95% FiO2 100% vent; wg : 03:30 BP 121 / 71; Pulse 122bpm; Resp 24bpm; Pulse Ox 97% FiO2 100% vent; Temp 98.6F Rectal; : 02:30 BP 108 / 62; Pulse 116bpm; Resp 24bpm; Pulse Ox 96% FiO2 100% vent; Temp 98.4F Rectal; : 01:00 BP 87 / 49; Pulse 121bpm; Resp 24bpm; Pulse Ox 95% FiO2 100% vent; Temp 98.5F Rectal; : 02:00 BP 81 / 47; Pulse 124bpm; Resp 24bpm; Pulse Ox 96% FiO2 100% vent; Temp 98.5F wg Rectal; wg 04:31 03:54 BP 106 / 75; Pulse 122bpm; Resp 24bpm; Pulse Ox 98% FiO2 100% vent; Temp 98.6F; wg 06:31 06:30 Admitted to ICU [facility]
--- NOTE | 2021-04-19 04:10 | EDPHYS ---
Physician Documentation [facility] Name: Brodie Escobar Age: 85 yrs Sex: Male : 1935 Arrival Date: 04/18/2021 Time: 22:04 Bed 4 Private MD: ED Physician Basilio Keith HPI: 04/18 22:42 This 85 yrs old Male presents to ER via EMS with complaints of Shortness of rn breath. 22:42 The patient has shortness of breath at rest. Onset: The symptoms/episode began/occurred rn yesterday. Duration: The symptoms are continuous. The patient's shortness of breath is aggravated by exertion, is alleviated by nothing. Associated signs and symptoms: Pertinent positives: non-productive cough, Pertinent negatives: fever, hemoptysis. Severity of symptoms: At their worst the symptoms were moderate in the emergency department the symptoms are unchanged. It is unknown whether or not the patient has had similar symptoms in the past. The patient has been recently seen by a physician:. Per EMS report patient new admit to long-term, transported to ER today for 2 days of shortness of breath and lack of response to breathing treatment. Report cough and fast respiratory rate with low oxygen. Patient with chronic kidney disease and recent CVA which is the reason he is placed in the long-term. Patient also reports abdominal pain. No trauma or head injury. No details given from long-term regarding recent stroke. EMS reports low blood pressure of 60 systolic along with oxygenation low 80s, has responded to small fluid bolus of 250 cc by EMS as well as oxygen supplementation by nasal cannula. Patient denies any chest pain. Historical: - Allergies: 04/19 01:06 No Known Allergies; bb - Home Meds: 04/18 22:24 furosemide 20 mg Oral tab 1 tab once daily [Active]; Imodium A-D 2 mg oral tab 2 tabs bb every 4 hours [Active]; lisinopril 5 mg Oral tab 1 tab once daily [Active]; melatonin 3 mg Oral tab nightly [Active]; sennosides 8.6 mg oral tab 2 tabs once daily [Active]; vit D3 5000 units daily [Active]; zinc sulfate 220 mg Oral cap daily [Active]; - PMHx: 22:24 acid reflux; Chronic Kidney disease stage 3; Coronary Arteriosclerosis; GERD; bb Hyperlipidemia; overactive bladder; prostate problems; Hypertension; Cerebrovascular accident; - Immunization history:: Adult Immunizations unknown, Client reports receiving the 2nd dose of the Covid vaccine, Date received: September 10, 2020 Pfizer Client reports receiving the 1st dose of the Covid vaccine, August 20, 2020. - Social history:: Smoking status: unknown. - Family history:: not pertinent. - Hospitalizations: : Patient was recently seen at. - Code Status:: Full code. ROS: 22:42 Constitutional: Negative for fever, chills, and weight loss, Eyes: Negative for injury, rn pain, redness, and discharge, Neck: Negative for injury, pain, and swelling, Cardiovascular: Negative for chest pain, palpitations, positive for swelling of legs Respiratory: Positive for cough and shortness of breath Abdomen/GI: Positive for abdominal pain, negative for vomiting or diarrhea Back: Negative for injury and pain, : Negative for injury, bleeding, discharge, and swelling, MS/Extremity: Negative for injury and deformity, Skin: Negative for injury, rash, and discoloration, Neuro: Negative for headache or seizure Exam: 22:42 Constitutional: Patient is awake, difficult to understand speech but answers questions rn and opens eyes spontaneously, GCS 15 Head/Face: Normocephalic, atraumatic. Eyes: Periorbital areas with no swelling, redness, or edema. Cardiovascular: Tachycardic, regular. Weak perpiheral pulses Respiratory: Moderate tachypnea with coarse bilateral breath sounds and small amount of air movement Abdomen/GI: Soft, mild tenderness epigastrium and periumbilical region, no masses palpated Skin: Warm, dry, no cyanosis MS/ Extremity: 2+ pitting edema bilateral lower extremities Neuro: Awake and alert, GCS 15 04/19 01:20 ECG was reviewed by the Attending Physician. rn Vital Signs: 04/18 22:11 BP 73 / 57; Pulse 103; Resp 46 S; Temp 97.8(TE); Pulse Ox 96% on 4 lpm NC; Weight 81.65 bb kg (R); Height 5 ft. 7 in. (170.18 cm) (R); 22:20 Temp 100.9(R); bb 23:10 BP 60 / 28; Pulse 104; Resp 28 S; Pulse Ox 66% on BiPAP; bb 23:14 BP 57 / 38; Pulse 107; Resp 29 A; Pulse Ox 91% on 100% FiO2 ETT vent; bb 23:19 BP 94 / 69; Pulse 110; Resp 24 A; bb 23:23 BP 109 / 49; Pulse 114; Resp 22 A; bb 23:29 BP 107 / 67; Pulse 104; Resp 40 A; Pulse Ox 90% on 100% FiO2 ETT vent; bb 23:32 BP 86 / 62; Pulse 112; Resp 26 S; Pulse Ox 99% on 100% FiO2 ETT vent; bb 04/19 00:00 BP 90 / 48; Pulse 118; Resp 24; Pulse Ox 97% on 100% FiO2 ETT vent; wg 00:30 BP 84 / 54; Pulse 120; Resp 24; Pulse Ox 96% on 100% FiO2 ETT vent; 01:00 BP 87 / 49; Pulse 121; Resp 27; Temp 98.5(R); Pulse Ox 95% on 100% FiO2 ETT vent; 01:30 BP 79 / 50; Pulse 127; Resp 26; Pulse Ox 95% on 100% FiO2 ETT vent; 02:00 BP 98 / 59; Pulse 120; Resp 24; Pulse Ox 95% on 100% FiO2 ETT vent; 02:00 BP 81 / 47; Pulse 124; Resp 26; Temp 98.5(R); Pulse Ox 96% on 100% FiO2 ETT vent; 02:30 BP 108 / 62; Pulse 116; Resp 27; Temp 98.4(R); Pulse Ox 96% on 100% FiO2 ETT vent; 03:00 BP 109 / 69; Pulse 123; Resp 24; Temp 98.4(R); Pulse Ox 96% on 100% FiO2 ETT vent; wg 03:30 BP 121 / 71; Pulse 122; Resp 26; Temp 98.6(R); Pulse Ox 97% on 100% FiO2 ETT vent; wg 03:54 BP 106 / 75; Pulse 122; Resp 26; Temp 98.6; Pulse Ox 98% on 100% FiO2 ETT vent; wg 04:28 BP 105 / 75; Pulse 122; Resp 24; Temp 98.4(R); Pulse Ox 96% on 100% FiO2 ETT vent; wg 04:58 BP 113 / 74; Pulse 124; Resp 27; Temp 98.5(R); Pulse Ox 96% on 100% FiO2 ETT vent; wg 04/18 22:11 Body Mass Index 28.19 (81.65 kg, 170.18 cm) bb Ventilator: 04/18 23:13 Fi02: 100%; Rate: 24min; T.V.: 500ml; Peep: 5cm; Mode: CMV; ET tube: 7.5 fr; bb Procedures: 23:38 Intubation: Ventilated with 100% NRB prior to procedure. O2 saturation prior to fitter and turner was 84 %. Intubated orally using # 4 Quinton blade with 7.5 mm ETT. was successful on first attempt. Ventilated with Ambu bag. Cricoid pressure applied during procedure. Tube secured with ETT castillo at right side of mouth measured 23 cm at teeth. Placement verified by CO2 detector with (+) color change, auscultating bilateral breath sounds, O2 saturation after procedure was 95 %. Patient tolerated well. Central Line: the site was prepped with Betadine, in sterile fashion, a triple lumen catheter was inserted, in the right in 1 attempts. placement was verified, by blood return, Good blood return in the proximal port, easy to flush without resistance. Other 2 ports do not draw back as easily. Those 2 ports were isolated and taped off as to not use them. Only proximal portion is cleared to use at this time, the site was dressed with Tegaderm, using sterile technique, the patient tolerated the procedure, well. 04/19 03:26 Central Line: the site was prepped with Betadine, in sterile fashion, a triple lumen rn catheter was inserted, in the left internal jugular vein, in 1 attempts. placement was verified, by CXR, by blood return, the site was dressed with Tegaderm, using sterile technique, the patient tolerated the procedure, well, Using ultrasound guidance, verified IJ location and verified wire in IJ prior to dilation. RN x2 in room and verified venous placement as well. MDM: 04/18 22:06 Patient medically screened. rn 22:09 ED course: EMS reports x-ray initiated earlier today and reports dated pulmonary edema rn and signs of CHF with nonspecific infiltrates. Patient still hypotensive will go slow with fluids at this point given 2+ pitting edema and CHF on x-ray per report. Will reassess with each bolus as opposed to giving full sepsis bolus.. 23:02 ED course: Patient still having moderate respiratory distress despite BiPAP, still rn reports dyspnea, increased mottling of lower extremities on exam with persistently low blood pressure. Decision made to intubate as well as place central line.. 23:50 ED course: Unable to find ultrasound in the department, no other ultrasound found in rn the hospital. Decision made to place right femoral line without ultrasound guidance due to blood pressures 70 systolic and mottled extremities.. 04/19 02:25 ED course: CT abdomen pelvis shows right femoral central line initially in femoral vein rn looped around for some reason and then exited vessel into tissue. We were using proximal port which had great blood flow and return without resistance likely because was still in the vessel prior to exit. No evidence on CAT scan of infusion into tissues or outside of the vessel. Central line removed and pressure applied manually and then with sandbag. Still unable to locate an ultrasound for proper IJ central line placement.. 03:37 ED course: Old central line removed and pressure held, no evidence of bleeding and rn hemostasis achieved. Left internal jugular central line placed using ultrasound with good blood return and flush and confirmed on ultrasound visualization.. 04:02 Differential diagnosis: CHF exacerbation, Myocardial Infarction pneumonia, Pneumothorax rn pulmonary edema, Sepsis chronic kidney disease, COVID. Data reviewed: vital signs, nurses notes, lab test result(s), EKG, radiologic studies, CT scan, plain films, and as a result, I will admit patient. Data interpreted: lunchroom monitor: rate is 122 beats/min, rhythm is regular, sinus tachycardia, with no ectopy, Interpretation: tachycardia, Pulse oximetry: on ventilator is 98 %. Interpretation: acceptable. Test interpretation: by ED physician or midlevel provider: ECG, plain radiologic studies, X-ray with bilateral pulmonary infiltrates and small pleural effusions. Counseling: I had a detailed discussion with the patient and/or guardian regarding: the historical points, exam findings, and any diagnostic results supporting the discharge/admit diagnosis, lab results, radiology results, the need for further work-up and treatment in the hospital. Response to treatment: the patient's symptoms have mildly improved after treatment, and as a result, I will admit patient. Admission orders: after a detailed discussion of the patient's condition and case, the admit orders are written by me. 04:20 ED course: Repeat ECG sinus tachycardia without any ST elevation. Elevated troponin rn likely secondary to infection and septic shock.. 06:54 ED course: Heparin infusion held at this point due to right femoral central line rn complication of looping and going through the back wall of the vessel and concerned that may subsequently bleed if we start heparin too early.. 04/18 22:07 Order name: Basic Metabolic Panel; Complete Time: 23:35 04/18 22:07 Order name: Blood Culture Adult (2) 04/18 22:07 Order name: CBC with Diff; Complete Time: 23:35 04/18 22:07 Order name: CPK; Complete Time: 23:35 04/18 22:07 Order name: LFT's; Complete Time: 23:35 04/18 22:07 Order name: Lactate; Complete Time: 23:35 04/18 22:07 Order name: Lipase; Complete Time: 23:35 04/18 22:07 Order name: Procalcitonin; Complete Time: 23:35 04/18 22:07 Order name: Protime (+inr); Complete Time: 23:35 04/18 22:07 Order name: Ptt, Activated; Complete Time: 23:35 04/18 22:07 Order name: Troponin (emerg Dept Use Only); Complete Time: 23:35 04/18 22:07 Order name: Urine Microscopic Only; Complete Time: 00:47 04/18 22:07 Order name: ABG; Complete Time: 00:47 04/18 22:07 Order name: Chest Single View XRAY 04/18 22:11 Order name: BIPAP 04/18 22:36 Order name: CT Chest Abdomen Pelvis W/O Contrast 04/18 23:16 Order name: SARS-COV-2 RT PCR; Complete Time: 00:47 EDMS 04/18 23:48 Order name: Chest Single View XRAY mw2 04/19 00:06 Order name: Urine Dipstick-Ancillary; Complete Time: 00:27 EDMS 04/19 00:07 Order name: Urine Dipstick-Ancillary; Complete Time: 00:27 EDMS 04/19 00:27 Order name: Glucose, Ancillary Testing; Complete Time: 00:47 EDMS 04/19 01:39 Order name: Lactate Sepsis 2 HR Follow-up; Complete Time: 02:24 EDMS 04/19 03:26 Order name: XRAY Chest (1 view) rn 04/19 05:18 Order name: Troponin (emerg Dept Use Only) wg 04/19 06:01 Order name: Troponin (Emerg Dept Use Only); Complete Time: 06:54 EDMS 04/19 08:19 Order name: Lactate EDMS 04/18 22:07 Order name: Accucheck; Complete Time: 03:25 rn 04/18 22:07 Order name: Cardiac monitoring; Complete Time: 22:17 rn 04/18 22:07 Order name: Cath; Complete Time: 00:00 rn 04/18 22:07 Order name: EKG - Nurse/Tech; Complete Time: 22:17 rn 04/18 22:07 Order name: IV Saline Lock - Large Bore; Complete Time: 22:17 rn 04/18 22:07 Order name: Labs collected and sent; Complete Time: 22:53 rn 04/18 22:07 Order name: O2 Per Protocol; Complete Time: 22:17 rn 04/18 22:07 Order name: O2 Sat Monitoring; Complete Time: 22:17 rn 04/18 22:07 Order name: Urine Dipstick-Ancillary (obtain specimen); Complete Time: 03:24 rn 04/19 04:10 Order name: EKG; Complete Time: 04:10 rn 04/19 04:10 Order name: EKG - Nurse/Tech; Complete Time: 04:40 rn 04/19 04:25 Order name: CONS Physician Consult; Complete Time: 05:27 EDMS EC:20 Rate is 103 beats/min. Rhythm is regular. QRS [place] is Normal. ID interval is prolonged rn at 256 msec. QRS interval is prolonged at 154 msec. QT interval is normal. No Q waves. T waves are Inverted in lead V6. No ST changes noted. Clinical impression: 1st degree heart block and Sinus tachycardia. Interpreted by me. Reviewed by me. Administered Medications: 04/18 22:30 Drug: NS 0.9% 500 ml Route: IV; Rate: bolus; Site: left forearm; wg 04/19 04:42 Follow up: IV Status: Completed infusion; IV Intake: 500ml wg 04:42 Follow up: IV Status: Completed infusion; IV Intake: 500ml wg 04/18 22:37 Drug: Zosyn (piperacillin-tazobactam) 3.375 grams Route: IVPB; Infused Over: 60 mins; wg Site: left forearm; 04/19 04:41 Follow up: IV Status: Completed infusion; IV Intake: 100ml 04/18 22:45 Drug: NS 0.9% 500 ml Route: IV; Rate: bolus; Infused Over: 15 mins; Site: left forearm; 23:10 Drug: Etomidate 20 mg {Note: by Osman RN.} Route: IVP; Site: right wrist; 04/19 04:41 Follow up: Response: No adverse reaction 04/18 23:10 Drug: Succinylcholine 120 mg {Note: by Osman RN.} Route: IVP; Site: right wrist; 04/19 04:41 Follow up: Response: No adverse reaction 04/18 23:11 Drug: Levophed (norepinephrine) (4 mg/250 mL D5W 4 mcg/min {Note: by Osman RN.} Route: bb IV; Rate: calculated rate; Site: right wrist; 23:15 Drug: NS 0.9% 1000 ml {Note: by Osman RN.} Route: IV; Rate: 1000 ml; Site: right wrist; 04/19 04:41 Follow up: IV Intake: 1000ml 04/18 23:23 Drug: Propofol 5 mcg/kg/min {Note: by Osman NICOLE.} Route: IV; Rate: calculated rate; Site: right wrist; 04/19 06:30 Follow up: Response: No adverse reaction 01:10 Drug: Tylenol Suppository 650 mg Route: ID; 04:40 Follow up: Response: No adverse reaction 01:10 Drug: SOLU-Medrol (methylPrednisoLONE) 125 mg Route: IVP; Infused Over: 2 mins; Site: right femoral; 04:40 Follow up: Response: No adverse reaction 04:30 Drug: D5-NS 1000 ml Route: IV; Rate: 125 ml/hr; Site: right forearm; 06:30 Follow up: IV Status: Completed infusion; IV Intake: 250ml Disposition: 04:02 Critical Care:. rn Disposition Summary: 04/19/21 04:09 Hospitalization Ordered Hospitalization Status: Inpatient Admission rn Provider: Gabriel Cisneros rn Location: Intensive Care Unit rn Condition: Serious rn Problem: new rn Symptoms: have improved rn Bed/Room Type: Standard rn Room Assignment: 6-(04/19/21 07:47) iw Diagnosis - Pneumonia due to SARS-associated coronavirus rn - Severe sepsis with septic shock rn - Acute respiratory failure with hypoxia rn Forms: - Medication Reconciliation Form rn - SBAR form wound treatment rn time excluding procedures: 04:02 Critical care time: Bedside Care: 80 minutes. Total time: 80 minutes rn Signatures: Dispatcher [employer] EDMS Angella Damon, Diamond Armas RN, RN Grisel Wilson RN RN iw Nieto, Roman, MD MD rn Gamba, sOman, RN wg Corrections: (The following items were deleted from the chart) 04/18 23:16 22:08 CORONAVIRUS+MR.LAB.BRZ ordered. [facility] 23:34 22:42 Constitutional: Patient is awake, difficult to understand speech but answers rn questions and opens eyes spontaneously, GCS 15 Head/Face: Normocephalic, atraumatic. Eyes: Periorbital areas with no swelling, redness, or edema. Cardiovascular: Tachycardic, regular. No pulse deficits Respiratory: Moderate tachypnea with coarse bilateral breath sounds and small amount of air movement Abdomen/GI: Soft, mild tenderness epigastrium and periumbilical region, no masses palpated Skin: Warm, dry, no cyanosis MS/ Extremity: 2+ pitting edema bilateral lower extremities Neuro: Awake and alert, GCS 15 rn 04/19 02:56 04/18 23:38 Central Line: the site was prepped with Betadine, in sterile fashion, a rn triple lumen catheter was inserted, in the right in 1 attempts. placement was verified, by blood return, the site was dressed with Tegaderm, using sterile technique, the patient tolerated the procedure, well, rn 04/19 04:05 03:37 ED course: No central line removed and pressure held, no evidence of bleeding and rn hemostasis achieved. Left internal jugular central line placed using ultrasound with good blood return and flush and confirmed on ultrasound visualization.. rn 04:59 04:09 rn kerry 07:47 04:59 4- mw iw
[2021-04-19] MEDS ORDERED: D5 0.9 NS 1,000 ML IV ONE (05:09)
[2021-04-19] MEDS ORDERED: NOREPINEPHRINE 4 MG/4 ML VIAL ONE ×2 (05:18→07:56)
[2021-04-19] MEDS ORDERED: D5W 250 ML IV ONE ×2 (05:18→07:56)
[2021-04-19 05:30] VITALS: BMI 28.1
[2021-04-19] MEDS ORDERED: D50W 25 GM/50 ML SYRINGE IV ONE ×2 (05:44→08:15)
[2021-04-19] MEDS ORDERED: GLUCAGON 1 MG/VIAL IM PRN (05:44)
[2021-04-19] MEDS ORDERED: ONDANSETRON 4 MG/2 ML VIAL IV PRN (05:44)
[2021-04-19] MEDS ORDERED: NOREPINEPHRINE 4 MG in D5W 250 ML IV SCH (05:44)
[2021-04-19] MEDS ORDERED: INSULIN -REGULAR HUMAN 50 UNIT/0.5 ML ML IV ONE (05:44)
[2021-04-19] MEDS ORDERED: [UNRECOGNIZED DRUG - REMARK] XX PRN (05:44)
[2021-04-19] MEDS ORDERED: FENTANYL CITR 100 MCG/2 ML IV PRN (05:44)
[2021-04-19] MEDS ORDERED: D50W 25 GM/50 ML SYRINGE IV PRN (05:44)
[2021-04-19] MEDS ORDERED: ACETAMINOPHEN 650MG/RECT SUPP PR PRN (05:44)
[2021-04-19] MEDS ORDERED: NA CHLORIDE 0.9% 1,000 ML IV SCH ×2 (05:44→14:22)
[2021-04-19] MEDS ORDERED: INSULIN -REGULAR HUMAN 50 UNIT/0.5 ML ML SQ SCH (05:44)
[2021-04-19] MEDS ORDERED: LORazepam 2 MG/ML VIAL IV PRN (05:44)
[2021-04-19] MEDS ORDERED: HALOPERIDOL LACT 5 MG/ML INJ IV PRN (05:44)
--- NOTE | 2021-04-19 05:54 | P.HP ---
Patient History Date of Service: 04/19/21 Reason for admission: respiratory distress History of Present Illness: Mr. Escobar is an 85 yo M with CAD, recent CVA, HLD, HTN, and CKD who presents with increasing SOB, cough and lack of response to breathing treatment. He is AOx1 at baseline, but fdc believes he had become more confused. EMS was called by fdc. Upon arrival, he was tachypneic and hypoxic to 80%. He was also hypotensive to SBP in the 60s. He responded to a 250cc fluid bolus and O2 given by EMS and was brought to the ED. Decision was made by ED provider to intubate and to place central line for pressors. Patient bled from central line site for approximately 30 minutes, so ED held off on beginning heparin drip. COVID+ today, initially tested + for COVID 03/27/21. WBC 12.8 K 5.3 BUN 63 Cr 2.89 GFR 21 Glu 215 lactate 5.6 Tbili 1.6 Dbili 0.4 AST 94 Troponin 9.71. Allergies No Known Allergies Allergy (Verified 03/27/21 18:52) Home Medications: Acetaminophen [Tylenol Extra Strength] 500 mg PO Q4H PRN 03/27/21 Sennosides/Docusate Sodium [Senokot-S Tablet] 2 tab PO BEDTIME 03/27/21 Apixaban [Eliquis *] 2.5 mg PO BID tablet 04/16/21 Ascorbic Acid [Vitamin C*] 500 mg PO BID tablet 04/16/21 Atorvastatin Calcium [Lipitor] 80 mg PO BEDTIME tab 04/16/21 Cholecalciferol (Vitamin D3) [Vitamin D 5,000 IU Cap*] 5,000 unit PO DAILY cap 04/16/21 Cyanocobalamin [Vitamin B-12*] 1,000 mcg PO DAILY tab 04/16/21 Duloxetine [Cymbalta *] 20 mg PO DAILY cap 04/16/21 Ensure Enlive 237 ml PO BID can 04/16/21 Furosemide [Lasix*] 20 mg PO DAILY tab 04/16/21 Loperamide [Imodium*] 4 mg PO Q4H PRN cap 04/16/21 Melatonin [Melatonin*] 3 mg PO BEDTIME tablet 04/16/21 Zinc Sulfate [Zinc Sulfate*] 220 mg PO DAILY cap 04/16/21 carvediloL [Coreg*] 6.25 mg PO BID tab 04/16/21 lisinopriL [Prinivil*] 5 mg PO DAILY tab 04/16/21 - Past Medical/Surgical History Diabetic: No -: Hyperlipidemia -: CAD -: Chronic kidney disease stage 3 -: GERD -: hypertension -: coronary arteriosclerosis -: prostate problem -: overactive bladder -: CABG -: Left knee -: aortocoronary bypass - Social History Smoking Status: Unknown if ever smoked Alcohol use: No CD- Drugs: No Caffeine use: No Review of Systems is unable to be obtained Physical Examination - Physical Exam General: Other (intubated) HEENT: Atraumatic, Mucous membr. moist/pink, Sclerae nonicteric Neck: Supple, 2+ carotid pulse no bruit, No LAD, Other (IJ placed), Without JVD or thyroid abnormality Respiratory: Diminished Cardiovascular: No edema, Normal S1 S2, Irregular heart rate/rhythm Gastrointestinal: Normal bowel sounds, No tenderness Musculoskeletal: No tenderness Integumentary: No rashes Neurological: Other (intubated) Lymphatics: No axilla or inguinal lymphadenopathy - Studies Laboratory Data (last 24 hrs) 04/18/21 22:18: PT 16.3 H, INR 1.41, APTT 38.1 H 04/18/21 22:18: WBC 12.80 H D, Hgb 11.3 L, Hct 35.1 L, Plt Count 207 D 04/18/21 22:18: Sodium 139, Potassium 5.3 H, BUN 63 H, Creatinine 2.89 H, Glucose 215 H, Total Bilirubin 1.6 H, AST 94 H, ALT 48, Alkaline Phosphatase 104, Lipase 39 L Assessment and Plan - Plan Assessment Acute respiratory failure with hypoxia secondary to pneumonia, covid+ severe sepsis with septic shock elevated troponin, history of CAD hyperkalemia acute on chronic kidney disease history of recent CVA history of hypertension history of hyperlipidemia Plan Acute respiratory failure with hypoxia secondary to pneumonia, covid+ - pulmonology consulted, respiratory therapy consulted, mechanical ventilation, continue broad spectrum antibiotics, continue IV steroids, daily CRP, ferritin, procal severe sepsis with septic shock - central line placed, continue levophed for MAP>65, continue IV antibiotics, continue IVF hydration, monitor for volume overload, repeat lactate elevated troponin, history of CAD - cardiology consulted, on tele, trend troponins, repeat EKG, heparin drip help due to excessive bleeding after difficulty with central line, will await further recommendations from cardiology acute on chronic kidney disease, hyperkalemia - nephrology consulted, continue IVF hydration, repeat potassium history of recent CVA - will consider neurology consulted history of hypertension - hold antihypertensives until weaned off of levophed history of hyperlipidemia - atorvastatin 80mg bedtime Discharge Plan: Intermediate Plan to discharge in: Greater than 2 days - Advance Directives Does patient have a Living Will: No Does patient have a Durable POA for Healthcare: No - Code Status/Comfort Care Code Status Assessed: Yes (full code ) Critical Care: Yes Time Spent Managing Pts Care (In Minutes): 70
[2021-04-19] MEDS: MIDAZOLAM HCL 2 MG/2 ML INJ IV PRN ×4 (06:00→19:47)
[2021-04-19] MEDS: propofoL 1,000 MG/100 ML VIAL IV PRN ×2 (06:03→22:47)
[2021-04-19] MEDS ORDERED: MIDAZOLAM HCL 2 MG/2 ML INJ ONE (06:22)
[2021-04-19] MEDS ORDERED: VANCOMYCIN 1.5 GM in NA CHLORIDE 0.9% 500 ML IVPB ONE (07:00)
[2021-04-19] MEDS ORDERED: FAMOTIDINE 20 MG/2 ML VIAL IV ONE ×2 (07:00→08:15)
[2021-04-19] MEDS ORDERED: CEFEPIME 1 GM/100 ML BAG IV SCH (07:00)
[2021-04-19] MEDS ORDERED: INSULIN -REGULAR HUMAN 50 UNIT/0.5 ML ML ONE (08:14)
--- NOTE | 2021-04-19 08:29 | RAD REPORT ---
EXAM DESCRIPTION: RAD - Chest Single View - 04/18/2021 10:34 pm CLINICAL HISTORY: DYSPNEA COMPARISON: April 2018 TECHNIQUE: AP portable chest image was obtained 04/18/2021 10:34 pm . FINDINGS: No peripheral consolidation or mass. Diffuse interstitial opacification is present most pr ominent in the perihilar regions. Mild cardiomegaly is present. Sternotomy wires are in place. Trache a is midline. Vascular engorgement is present. No measurable pleural effusion and no pneumothorax. No acute bony abnormality seen. No acute aortic findings suspected. IMPRESSION: Pulmonary edema pattern is present without peripheral consolidation or mass.
[2021-04-19 08:57] LABS: Albumin 2.1 g/dL (3.4-5.0); Bilirubin Total 1.9 mg/dL (0.2-1.0); Ferritin 3232.1 ng/mL (26-388); Phosphorus 2.1 mg/dL (2.5-4.9); Protein, Total 6.3 g/dL (6.4-8.2); Thyroid Stimulating Hormone 2.17 uIU/mL (0.360-3.740)
[2021-04-19] MEDS ORDERED: FAMOTIDINE 20 MG/2 ML VIAL IV SCH (09:00)
[2021-04-19] MEDS ORDERED: CEFEPIME 1 GM/VIAL IV SCH (09:00)
[2021-04-19] MEDS: METHYLPREDNISOLONE 125 MG INJ IV SCH ×2 (09:31→21:37)
--- NOTE | 2021-04-19 09:58 | RAD REPORT ---
EXAM DESCRIPTION: CT - Chest Abd Pelvis Wo Con - 04/19/2021 8:24 am ADDENDUM #1 Results were verbally communicated to Dr. Anna Craven by Nell Calero and report receipt was c onfirmed by Dr. Anna Craven on 04/19/2021 1:56 AM CDT. Electronically signed by: Reno Tobar MD 04/19/2021 2:23 AM CDT End of Addendum EXAM: CT Chest, Abdomen and Pelvis Without Intravenous Contrast CLINICAL HISTORY: The patient is 85 years old and is Male; sob, abd pain, CKD TECHNIQUE: Axial computed tomography images of the chest, abdomen and pelvis without intravenous con trast. Sagittal and coronal reformatted images were created and reviewed. This CT exam was perfor med using one or more of the following dose reduction techniques: automated exposure control, adjus tment of the mA and/or kV according to patient size, and/or use of iterative reconstruction technique . COMPARISON: No relevant prior studies available. FINDINGS: CHEST: Lungs: See below. Pleural space: Small bilateral pleural effusions with associated atelectasis. No pneumothorax. Heart: Unremarkable. No cardiomegaly. No significant pericardial effusion. ABDOMEN: Liver: Unremarkable. Gallbladder and bile ducts: Gallbladder is surgically absent. No ductal dilation. Pancreas: Unremarkable. No ductal dilation. Spleen: Unremarkable. No splenomegaly. Adrenals: Unremarkable. No mass. Kidneys and ureters: Bilateral renal atrophy. Mild bilateral perinephric stranding. No obstructing stones. No hydronephrosis. Stomach and bowel: Scattered colonic diverticula. No obstruction. No mucosal thickening. PELVIS: Appendix: No findings to suggest acute appendicitis. Bladder: Campbell catheter in the bladder. No stones. Reproductive: Unremarkable as visualized. CHEST, ABDOMEN and PELVIS: Intraperitoneal space: Unremarkable. No significant fluid collection. No free air. Bones/joints: Median sternotomy wires. Degenerative endplate changes with anterior osteophytosis at L3-4. No acute fracture. No dislocation. Soft tissues: Unremarkable. Vasculature: Scattered atherosclerotic vascular calcifications including at the origins of the me senteric and renal arteries. No aortic aneurysm. Lymph nodes: Unremarkable. No enlarged lymph nodes. Tubes, lines and devices: Right femoral venous catheter which extends posteriorly outside the lum en of the vessel into the surrounding soft tissues. Endotracheal tube with tip above the kerri. Nasogastric tube with tip in the stomach. IMPRESSION: 1. Small bilateral pleural effusions with associated atelectasis. 2. No acute finding in the abdomen/pelvis. 3. Right femoral venous catheter which extends posteriorly outside the lumen of the vessel into the surrounding soft tissues. Electronically signed by: Reno Tobar MD 04/19/2021 1:46 AM CDT Due to temporary technical issues with the PACS/Fluency reporting system, reports are being signed by the in house radiologists without review as a courtesy to insure prompt reporting. The interpreting radiologist is fully responsible for the content of the report.
[2021-04-19] MEDS ORDERED: SUCCINYLCHOLINE 20 MG/ML (10 ML) IV ONE (10:34)
[2021-04-19] MEDS ORDERED: ETOMIDATE 20 MG/10 ML VIAL IV ONE (10:35)
[2021-04-19] MEDS: INSULIN -REGULAR HUMAN 50 UNIT/0.5 ML ML SQ SCH ×2 (11:33→17:24)
[2021-04-19 11:52] LABS: Absolute Lymphocytes (CBC) 0.7 K/uL (0.7-4.9); Basophils % 0.4 % (0-1.3); Lymphocytes % 6.1 % (15.3-44.8); MPV 10.9 fL (7.6-11.3); RBC Red Blood Cell Count 3.92 M/uL (4.33-5.43)
[2021-04-19] MEDS ORDERED: HEPARIN/D5W 25,000 UNIT/500 ML BAG IV SCH (12:00)
[2021-04-19] MEDS ORDERED: VITAL AF 1,000 ML BOT RTH SCH (13:00)
[2021-04-19 13:20] LABS: White Blood Cell Scan OK (OK)
[2021-04-19 13:21] LABS: Blood Morphology Comment NOTED (NOT SEEN); Burr Cells FEW; Platelet Estimate ADEQ; Platelets, Giant FEW
--- NOTE | 2021-04-19 14:13 | P.PN ---
Subjective Date of Service: 04/19/21 Chief Complaint: respiratory distress Patient sedated and on mechanical ventilation. Bleeding from central line site stopped. Blood pressure stable on Levophed. Patient remain unresponsive. He is tolerating 30% FiO2 on the vent. No significant NG tube output. Troponin trended up to 16. Review of Systems is unable to be obtained (Due to altered mental status) Physical Examination - Vital Signs Temperature: 98.9 F Blood Pressure: 91/57 Pulse: 91 Respirations: 24 Pulse Ox (%): 99 - Physical Exam General: Other (Intubated, unresponsive.) HEENT: Other (ETT) Neck: JVD not distended Respiratory: Other (Bilateral upper airway transmitted sounds. No rhonchi.) Cardiovascular: No edema, Regular rate/rhythm, Normal S1 S2 Gastrointestinal: Normal bowel sounds, Soft and benign, Non-distended Musculoskeletal: No swelling Integumentary: No erythema Neurological: Other (Unresponsive) - Studies Laboratory Data (last 24 hrs) 04/18/21 22:18: PT 16.3 H, INR 1.41, APTT 38.1 H 04/18/21 22:18: WBC 12.80 H D, Hgb 11.3 L, Hct 35.1 L, Plt Count 207 D 04/18/21 22:18: Sodium 139, Potassium 5.3 H, BUN 63 H, Creatinine 2.89 H, Glucose 215 H, Total Bilirubin 1.6 H, AST 94 H, ALT 48, Alkaline Phosphatase 104, Lipase 39 L Assessment And Plan - Current Problems (Diagnosis) (1) NSTEMI (non-ST elevated myocardial infarction) Current Visit: Yes Status: Acute (2) Acute respiratory failure with hypoxia Current Visit: Yes Status: Acute (3) Altered mental status Current Visit: Yes Status: Acute (4) History of CVA (cerebrovascular accident) Current Visit: Yes Status: Acute (5) Cardiogenic shock Current Visit: Yes Status: Acute (6) Acute renal failure Current Visit: Yes Status: Acute (7) Elevated LFTs Current Visit: Yes Status: Acute (8) COVID-19 virus infection Current Visit: Yes Status: Acute (9) Septic shock Current Visit: Yes Status: Acute - Plan Continue management in the critical care unit. Start heparin drip Wean Levophed as tolerated. IV hydration Obtain echocardiogram. Cardiology, nephrology and Pulmonary consult. Empiric IV antibiotics for sepsis. Follow urine culture and blood cultures. Monitor renal function. Critical care time spent managing patient has hypotension, NSTEMI, PAM an acute respiratory failure was about 46 min.
--- NOTE | 2021-04-19 14:26 | RAD REPORT ---
EXAM DESCRIPTION: RAD - Chest Single View - 04/19/2021 12:45 am CLINICAL HISTORY: Post ET tube COMPARISON: None. FINDINGS: Single frontal view of the chest. Tubes and lines: Endotracheal tube with tip 3 cm above the kerri. NG tube with tip at the level of t he gastroesophageal junction. Leads overlie the chest. Cardiomediastinal silhouette: Prior median sternotomy. Atherosclerotic calcification of thoracic aort a. Heart is not enlarged. Lungs: Pulmonary vascular congestion with bilateral interstitial opacities. No pneumothorax or defini te effusion. Bones: Degenerative change of the spine and shoulders. Upper abdomen: No additional findings. IMPRESSION: 1. Endotracheal tube in appropriate position. 2. NG tube with tip at the gastroesophageal junction. Consider advancing 10 cm and reimaging. 3. Bilateral pulmonary vascular congestion and interstitial opacities may represent pulmonary edema. Superimposed pneumonic process may contribute to this appearance. Electronically signed by: Prasad Ji 04/19/2021 12:50 AM CDT Due to temporary technical issues with the PACS/Fluency reporting system, reports are being signed by the in house radiologists without review as a courtesy to insure prompt reporting. The interpreting radiologist is fully responsible for the content of the report.
--- NOTE | 2021-04-19 14:51 | RAD REPORT ---
EXAM DESCRIPTION: RAD - Chest Single View - 04/19/2021 4:20 am CLINICAL HISTORY: The patient is 85 years old and is Male; post central line TECHNIQUE: Single view of the chest. COMPARISON: April 19, 2021 12:13 AM. FINDINGS: Lungs: Bilateral pulmonary opacities are not significantly changed. Pleural space: Unremarkable. No pneumothorax. Heart: The cardiac silhouette is enlarged versus artifact of AP technique. Cardiomediastinal silhouette is not significantly changed given the differences in technique. Mediastinum: See above. Bones/joints: The bones and joints are unchanged as visualized. Tubes, lines and devices: ET tube is 2 cm above the kerri. NG tube is below the diaphragm. Left IJ line is at the SVC/innominate vein junction. Upper abdomen: No free air in the visualized upper abdomen. IMPRESSION: 1. Lines and tubes as above. No pneumothorax. 2. Bilateral pulmonary opacities are not significantly changed. Electronically signed by: Tara Bingham MD 04/19/2021 4:31 AM CDT Due to temporary technical issues with the PACS/Fluency reporting system, reports are being signed by the in house radiologists without review as a courtesy to insure prompt reporting. The interpreting radiologist is fully responsible for the content of the report.
--- NOTE | 2021-04-19 17:05 | P.PN ---
Subjective Date of Service: 04/19/21 Chief Complaint: respiratory distress Physical Examination - Vital Signs Temperature: 98.9 F Blood Pressure: 89/53 Pulse: 85 Respirations: 24 Pulse Ox (%): 100 - Studies Laboratory Data (last 24 hrs) 04/18/21 22:18: PT 16.3 H, INR 1.41, APTT 38.1 H 04/18/21 22:18: WBC 12.80 H D, Hgb 11.3 L, Hct 35.1 L, Plt Count 207 D 04/18/21 22:18: Sodium 139, Potassium 5.3 H, BUN 63 H, Creatinine 2.89 H, Glucose 215 H, Total Bilirubin 1.6 H, AST 94 H, ALT 48, Alkaline Phosphatase 104, Lipase 39 L
--- NOTE | 2021-04-19 18:52 | P.DS ---
Admission Date: 04/19/21 Discharge Date: 04/21/21 Disposition: TRANSFER TO [facility] Reason for Admission: respiratory distress - Problems (1) NSTEMI (non-ST elevated myocardial infarction) Status: Acute (2) Acute respiratory failure with hypoxia Status: Acute (3) Altered mental status Status: Acute (4) History of CVA (cerebrovascular accident) Status: Acute (5) Cardiogenic shock Status: Acute (6) Acute renal failure Status: Acute (7) Elevated LFTs Status: Acute (8) COVID-19 virus infection Status: Acute (9) Septic shock Status: Acute Brief History of Present Illness: 85 yo M with CAD, recent CVA, HLD, HTN, and CKD presented with increasing SOB, cough and lack of response to breathing treatment. He is AOx1 at baseline, but retirement believed he had become more confused. EMS was called by retirement. Upon arrival, he was tachypneic and hypoxic to 80%. He was also hypotensive to SBP in the 60s. He responded to a 250cc fluid bolus and O2 given by EMS and was brought to the ED. Decision was made by ED provider to intubate and to place central line for pressors. Patient bled from central line site for approximately 30 minutes, so ED held off on beginning heparin drip. He tested positive for COVID., initially tested + for COVID 03/27/21. WBC 12.8 K 5.3 BUN 63 Cr 2.89 GFR 21 Glu 215 lactate 5.6 Tbili 1.6 Dbili 0.4 AST 94 Troponin 9.71. Patient admitted to the ICU for further management. Hospital Course: Patient started on heparin drip for NSTEMI. He was kept on Levophed drip. Patient was requiring 30% FiO2 on the vent. Blood pressure improved on the Levophed drip. Patient seen and evaluated by cardiology. His troponin continue to trend up. Leukocytosis significantly elevated but patient had no fever. He imaging demonstrated pleural effusion, no infiltrate. He is diagnosed with cardiogenic shock. Cardiology-Dr. Bonilla determined patient will need urgent cardiac catheterization. [facility] was contacted, patient was accepted for transfer and subsequently transferred for further management. Vital Signs/Physical Exam: Temp Pulse Resp BP Pulse Ox 98.9 F 85 24 H 93/57 L 99 04/19/21 17:05 04/19/21 18:15 10/22/21 18:15 04/19/21 18:15 04/19/21 18:15 General: Other (Sedated) HEENT: Other (Intubated) Respiratory: Other (Bilateral upper airway transmitted sounds) Cardiovascular: No edema, Other (Tachycardia) Gastrointestinal: Soft and benign, Non-distended Musculoskeletal: No swelling Neurological: Other (Sedated) Laboratory Data at Discharge: WBC 12.10 K/uL (4.3-10.9) H 04/19/21 07:40 Hgb 11.3 g/dL (13.6-17.9) L 04/19/21 07:40 Hct 35.0 % (39.6-49.0) L 04/19/21 07:40 Plt Count 205 K/uL (152-406) 04/19/21 07:40 PT 16.3 SECONDS (9.5-12.5) H 04/18/21 22:18 INR 1.41 04/18/21 22:18 APTT 170.0 SECONDS (24.3-36.9) H* 04/19/21 15:08 Sodium 136 mmol/L (136-145) 04/19/21 07:40 Potassium 4.5 mmol/L (3.5-5.1) 04/19/21 09:38 BUN 65 mg/dL (7-18) H 04/19/21 07:40 Creatinine 3.43 mg/dL (0.55-1.3) H 04/19/21 07:40 Glucose 342 mg/dL (74-106) H 04/19/21 07:40 Phosphorus 2.1 mg/dL (2.5-4.9) L 04/19/21 07:40 Magnesium 2.0 mg/dL (1.8-2.4) 04/19/21 07:40 Total Bilirubin 1.9 mg/dL (0.2-1.0) H 04/19/21 07:40 AST 643 U/L (15-37) H* D 04/19/21 07:40 ALT 581 U/L (12-78) H* D 04/19/21 07:40 Alkaline Phosphatase 106 U/L (45-117) 04/19/21 07:40 Troponin I 28.20 ng/mL (0.0-0.045) H* 10/22/21 15:45 Triglycerides 111 mg/dL (<150) 04/19/21 07:40 Cholesterol 76 mg/dL (<200) 04/19/21 07:40 HDL Cholesterol 38 mg/dL (40-60) L 04/19/21 07:40 Cholesterol/HDL Ratio 2.00 04/19/21 07:40 Lipase 39 U/L (73-393) L 04/18/21 22:18 Home Medications: Acetaminophen [Tylenol Extra Strength] 500 mg PO Q4H PRN 03/27/21 Sennosides/Docusate Sodium [Senokot-S Tablet] 2 tab PO BEDTIME 03/27/21 Apixaban [Eliquis *] 2.5 mg PO BID tablet 04/16/21 Ascorbic Acid [Vitamin C*] 500 mg PO BID tablet 04/16/21 Atorvastatin Calcium [Lipitor] 80 mg PO BEDTIME tab 04/16/21 Cholecalciferol (Vitamin D3) [Vitamin D 5,000 IU Cap*] 5,000 unit PO DAILY cap 04/16/21 Cyanocobalamin [Vitamin B-12*] 1,000 mcg PO DAILY tab 04/16/21 Duloxetine [Cymbalta *] 20 mg PO DAILY cap 04/16/21 Ensure Enlive 237 ml PO BID can 04/16/21 Furosemide [Lasix*] 20 mg PO DAILY tab 04/16/21 Loperamide [Imodium*] 4 mg PO Q4H PRN cap 04/16/21 Melatonin [Melatonin*] 3 mg PO BEDTIME tablet 04/16/21 Zinc Sulfate [Zinc Sulfate*] 220 mg PO DAILY cap 04/16/21 carvediloL [Coreg*] 6.25 mg PO BID tab 04/16/21 lisinopriL [Prinivil*] 5 mg PO DAILY tab 04/16/21 Followup: NONE,NONE [Primary Care Provider] - Time spent managing pt's care (in minutes): 40
[2021-04-19 20:34] VITALS: TEMP 97.6
--- NOTE | 2021-04-19 20:53 | CON ---
Date of Consultation: 04/19/2021 Reason For Consultation: Elevated troponin. History Of Present Illness: This is an 85-year-old male, history of coronary artery disease, CVA, hypertension, dyslipidemia, chronic kidney disease, presented with worsening shortness of breath, cough, and altered mental status from the retirement. He was very confused upon arrival to the hospital, hypoxic to 80 and hypotensive, responded to low dose of normal saline at that time and required intubation. Had COVID test positive as well. The patient is intubated and cannot get any further history. Past Medical History: As outlined above in the HPI. Medications: Refer to reconciliation sheet for detailed list. Allergies: NO KNOWN DRUG ALLERGIES. Family History: No known premature coronary artery disease. Past Surgical History: Reported CABG. Social History: Does not smoke or drink as per the chart. Review of Systems: All systems reviewed and negative except as mentioned in HPI. Physical Examination: Vital Signs: Reviewed. Head and Neck: Pupils reactive to light. No JVD. Lungs: Decreased breathing sounds with rhonchi bilaterally, intubated. Heart: Regular rate and rhythm. No extra sounds. Abdomen: Soft, nontender. Bowel sounds positive. No organomegaly. No masses or hernia. No rigidity or rebound. Extremities: Edema bilaterally. No clubbing or cyanosis. Skin: No rash. No nodules. Neuro: He is on the vent, totally altered. Lymph Nodes: No cervical or axillary lymphadenopathy. Investigations: Troponin initially was 14.6, then went up to 16, creatinine of 3.43. The patient is not on dialysis. White blood cell count is 12.8 thousand. On echo, severely depressed left ventricular ejection fraction at 20%-25% with global hypokinesis. Blood cultures are pending. Assessment And Recommendations: 1. [id number] myocardial infarction, severe depressed left ventricular ejection fraction. The patient as per history, had coronary artery bypass in the past and the past unknown status. The patient is severely ill with acute respiratory failure and possible [id number] pneumonia. Recommendation: Anticoagulate with IV heparin for therapeutic PTT and start the patient on aspirin 81 mg daily and trend the troponin further. This definitely could be a demand ischemia due to the known history of coronary artery disease and the current presentation of sepsis, or it all could be due to the [id number] ID. If there is a significant change in the troponin level, I would recommend to transfer to a facility where an angiogram can be done on an urgent basis, but if the troponin starts to trend down, we will treat currently with anticoagulation and hemodynamic support and plan for angiogram once condition is more stable. We will try to get in touch with family to get better understanding of the overall quality of life and the will of the patient. 2. Sepsis. The patient is on wide-spectrum antibiotics. I will follow the patient closely with you. Thank you for the consult. GARY Voice ID: [id number] Report ID: [id number] MTDD
[2021-04-19 20:57] VITALS: O2SAT 98
[2021-04-19] MEDS ORDERED: ATORVASTATIN 80 MG TAB PO SCH (21:00)
--- NOTE | 2021-04-19 21:05 | P.CNS ---
Date of Consult: 04/19/21 Reason for Consult: PAM/ CKD Requesting Physician: lexi matthew Chief Complaint: respiratory distress History of Present Illness: Mr. Escobar is an 85 yo M with CAD, recent CVA, HLD, HTN, and CKD who presents with increasing SOB, cough and lack of response to breathing treatment. He is AOx1 at baseline, but longterm believes he had become more confused. EMS was called by longterm. Upon arrival, he was tachypneic and hypoxic to 80%. He was also hypotensive to SBP in the 60s. He responded to a 250cc fluid bolus and O2 given by EMS and was brought to the ED. Decision was made by ED provider to intubate and to place central line for pressors. Patient bled from central line site for approximately 30 minutes, so ED held off on beginning heparin drip. COVID+ today, initially tested + for COVID 03/27/21. 22:42 This 85 yrs old Male presents to ER via EMS with complaints of Shortness of rn breath. 22:42 The patient has shortness of breath at rest. Onset: The symptoms/episode began/occurred rn yesterday. Duration: The symptoms are continuous. The patient's shortness of breath is aggravated by exertion, is alleviated by nothing. Associated signs and symptoms: Pertinent positives: non-productive cough, Pertinent negatives: fever, hemoptysis. Severity of symptoms: At their worst the symptoms were moderate in the emergency department the symptoms are unchanged. It is unknown whether or not the patient has had similar symptoms in the past. The patient has been recently seen by a physician:. Per EMS report patient new admit to longterm, transported to ER today for 2 days of shortness of breath and lack of response to breathing treatment. Report cough and fast respiratory rate with low oxygen. Patient with chronic kidney disease and recent CVA which is the reason he is placed in the longterm. Patient also reports abdominal pain. No trauma or head injury. No details given from longterm regarding recent stroke. EMS reports low blood pressure of 60 systolic along with oxygenation low 80s, has responded to small fluid bolus of 250 cc by EMS as well as oxygen supplementation by nasal cannula. Patient denies any chest pain. Allergies No Known Allergies Allergy (Verified 03/27/21 18:52) Home medications list reviewed: Yes Home Medications: Acetaminophen [Tylenol Extra Strength] 500 mg PO Q4H PRN 03/27/21 Sennosides/Docusate Sodium [Senokot-S Tablet] 2 tab PO BEDTIME 03/27/21 Apixaban [Eliquis *] 2.5 mg PO BID tablet 04/16/21 Ascorbic Acid [Vitamin C*] 500 mg PO BID tablet 04/16/21 Atorvastatin Calcium [Lipitor] 80 mg PO BEDTIME tab 04/16/21 Cholecalciferol (Vitamin D3) [Vitamin D 5,000 IU Cap*] 5,000 unit PO DAILY cap 04/16/21 Cyanocobalamin [Vitamin B-12*] 1,000 mcg PO DAILY tab 04/16/21 Duloxetine [Cymbalta *] 20 mg PO DAILY cap 04/16/21 Ensure Enlive 237 ml PO BID can 04/16/21 Furosemide [Lasix*] 20 mg PO DAILY tab 04/16/21 Loperamide [Imodium*] 4 mg PO Q4H PRN cap 04/16/21 Melatonin [Melatonin*] 3 mg PO BEDTIME tablet 04/16/21 Zinc Sulfate [Zinc Sulfate*] 220 mg PO DAILY cap 04/16/21 carvediloL [Coreg*] 6.25 mg PO BID tab 04/16/21 lisinopriL [Prinivil*] 5 mg PO DAILY tab 04/16/21 - Past Medical/Surgical History Diabetic: No -: Hyperlipidemia -: CAD -: Chronic kidney disease stage 3 -: GERD -: hypertension -: coronary arteriosclerosis -: prostate problem -: overactive bladder -: CABG -: Left knee -: aortocoronary bypass - Social History Smoking Status: Unknown if ever smoked Alcohol use: No CD- Drugs: No Caffeine use: No Review of Systems is unable to be obtained Physical Examination Temp Pulse Resp BP Pulse Ox 97.6 F 89 24 H 96/56 L 98 04/19/21 20:00 04/19/21 20:30 04/19/21 20:30 04/19/21 20:30 04/19/21 20:30 General: Unresponsive HEENT: Atraumatic Neck: Supple Respiratory: Clear to auscultation bilaterally, Rhonchi/gurgles Cardiovascular: Regular rate/rhythm, Edema Gastrointestinal: Non-distended, Tenderness Musculoskeletal: No clubbing, No contractures Integumentary: No rashes, No warmth (Feet), No cyanosis Neurological: Abnormal speech External genitalia: No edema Laboratory Data (last 24 hrs) 04/18/21 22:18: PT 16.3 H, INR 1.41, APTT 38.1 H 04/18/21 22:18: WBC 12.80 H D, Hgb 11.3 L, Hct 35.1 L, Plt Count 207 D 04/18/21 22:18: Sodium 139, Potassium 5.3 H, BUN 63 H, Creatinine 2.89 H, Glucose 215 H, Total Bilirubin 1.6 H, AST 94 H, ALT 48, Alkaline Phosphatase 104, Lipase 39 L Imagings Data: EXAM: CT Chest, Abdomen and Pelvis Without Intravenous Contrast CLINICAL HISTORY: The patient is 85 years old and is Male; sob, abd pain, CKD TECHNIQUE: Axial computed tomography images of the chest, abdomen and pelvis without intravenous contrast. Sagittal and coronal reformatted images were created and reviewed. This CT exam was performed using one or more of the following dose reduction techniques: automated exposure control, adjustment of the mA and/or kV according to patient size, and/or use of iterative reconstruction technique. COMPARISON: No relevant prior studies available. FINDINGS: CHEST: Lungs: See below. Pleural space: Small bilateral pleural effusions with associated atelecta sis. No pneumothorax. Heart: Unremarkable. No cardiomegaly. No significant pericardial effusion. ABDOMEN: Liver: Unremarkable. Gallbladder and bile ducts: Gallbladder is surgically absent. No ductal dilation. Pancreas: Unremarkable. No ductal dilation. Spleen: Unremarkable. No splenomegaly. Adrenals: Unremarkable. No mass. Kidneys and ureters: Bilateral renal atrophy. Mild bilateral perinephric stranding. No obstructing stones. No hydronephrosis. Stomach and bowel: Scattered colonic diverticula. No obstruction. No mucosal thickening. PELVIS: Appendix: No findings to suggest acute appendicitis. Bladder: Campbell catheter in the bladder. No stones. Reproductive: Unremarkable as visualized. CHEST, ABDOMEN and PELVIS: Intraperitoneal space: Unremarkable. No significant fluid collection. No free air. Bones/joints: Median sternotomy wires. Degenerative endplate changes with anterior osteophytosis at L3-4. No acute fracture. No dislocation. Soft tissues: Unremarkable. Vasculature: Scattered atherosclerotic vascular calcifications including at the origins of the mesenteric and renal arteries. No aortic aneurysm. Lymph nodes: Unremarkable. No enlarged lymph nodes. Tubes, lines and devices: Right femoral venous catheter which extends posteriorly outside the lumen of the vessel into the surrounding soft tissues. Endotracheal tube with tip above the kerri. Nasogastric tube with tip in the stomach. IMPRESSION: 1. Small bilateral pleural effusions with associated atelectasis. 2. No acute finding in the abdomen/pelvis. 3. Right femoral venous catheter which extends posteriorly outside the lumen of the vessel into the surrounding soft tissues. EXAM DESCRIPTION: RAD - Chest Single View - 04/19/2021 4:20 am CLINICAL HISTORY: The patient is 85 years old and is Male; post central line TECHNIQUE: Single view of the chest. COMPARISON: April 19, 2021 12:13 AM. FINDINGS: Lungs: Bilateral pulmonary opacities are not significantly changed. Pleural space: Unremarkable. No pneumothorax. Heart: The cardiac silhouette is enlarged versus artifact of AP technique. Cardiomediastinal silhouette is not significantly changed given the differences in technique. Mediastinum: See above. Bones/joints: The bones and joints are unchanged as visualized. Tubes, lines and devices: ET tube is 2 cm above the kerri. NG tube is below the diaphragm. Left IJ line is at the SVC/innominate vein junction. Upper abdomen: No free air in the visualized upper abdomen. IMPRESSION: 1. Lines and tubes as above. No pneumothorax. 2. Bilateral pulmonary opacities are not significantly changed. Conclusions/Impression: PAM likely ATN in the setting of hypotension CKD III -No NSAIDs -Continue vasopressor support to maintain perfusion Hyperkalemia, improving AG Acidosis Lactic acidosis -Maintain perfusion Hypocalcemia HypoPO4 -Replete prn -Maintain nutrition Cardiogenic Shock -Continue Levophed to maintain perfusion -Continue IVF with NS Systolic CHF, A/C in the setting of NSTEMI Acute hypoxic respiratory failure -Continue ventilatory support -Follow up with cardiology DM II with CKD -RISS Ischemic hepatitis -Maintain perfusion Moderate malnutrition -Continue tube feeds Anemia in chronic illness -Monitor H&H Toxic Metabolic Encephalopathy -Continue sedation Thank you kindly for the consultation. Case reviewed with Dr. Matthew & Dr. Bonilla Critical Care: Yes (>30min)
[2021-04-19] MEDS ORDERED: propofoL 500 MG/50 ML ML IV ONE (23:11)
[2021-04-19 23:33] VITALS: BP 105/59
[2021-04-21] MEDS ORDERED: VANCOMYCIN 1.5 GM in NA CHLORIDE 0.9% 500 ML IVPB SCH (06:00)
--- NOTE | 2021-04-22 07:48 | ECHO ---
HEIGHT: 5 ft 7 in WEIGHT: 180 lb 0.119 oz DATE OF STUDY: 04/19/[address]: Amari Ortiz 2-DIMENSIONAL: YES M.MODE: YES DOPPLER: YES COLOR FLOW: YES TDS: NO PORTABLE: YES DEFINITY: NO BUBBLE STUDY: NO DIAGNOSIS: ELEVATED TROPONIN CARDIAC HISTORY: CATHERIZATION: NO SURGERY: NO PROSTHETIC VALVE: NO PACEMAKER: NO MEASUREMENTS (cm) DIASTOLIC (NORMALS) SYSTOLIC (NORMALS) IVSd 0.9 (0.6-1.2) LA Diam 3.5 (1.9-4.0) LVEF 20-25% LVIDd 5.2 (3.5-5.7) LVIDs 4.8 (2.0-3.5) %FS 9% LVPWd 0.9 (0.6-1.2) Ao Diam 2.6 (2.0-3.7) 2 DIMENSIONAL ASSESSMENT: RIGHT ATRIUM: NORMAL LEFT ATRIUM: NORMAL RIGHT VENTRICLE: NORMAL LEFT VENTRICLE: SEVERELY DEPRESSED TRICUSPID VALVE: MITRAL VALVE: PULMONIC VALVE: NORMAL AORTIC VALVE: PERICARDIAL EFFUSION: NONE AORTIC ROOT: NORMAL LEFT VENTRICULAR WALL MOTION: SEVERE GLOBAL HYPOKINESIS. DOPPLER/COLOR FLOW: SEE BELOW. COMMENTS: SEVERELY DEPRESSED LEFT VENTRICULAR EJECTION FRACTION 20-25%. 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 MILD TRICUSPID REGURGITATION. MODERATE PULMONARY HYPERTENSION. RIGHT VENTRICULAR SYSTOLIC PRESSURE 45-50 mmHg. TECHNOLOGIST: Sunni RESENDIZ
== END 2021-04-19 23:12 | disposition short-term general hospital (02) | DRG 871 ==
LOC: ER 22:00 → ERHOLD 04-19 04:42 → 3RD-ICU 04-19 09:16
PROVIDERS: ADMIT Internal Medicine; ATTEND Internal Medicine
PROC: 5A1935Z Respiratory Ventilation, Less than 24 Consecutive Hours (ICD-10-PCS; principal; 2021-04-19)
PROC: 0BH17EZ Insertion of Endotracheal Airway into Trachea, Via Natural or Artificial Opening (ICD-10-PCS; 2021-04-19)
PROC: 05HY33Z Insertion of Infusion Device into Upper Vein, Percutaneous Approach (ICD-10-PCS; 2021-04-19)
DX: A41.89 Other specified sepsis (principal); U07.1 COVID-19; J12.82 Pneumonia due to coronavirus disease 2019; J96.01 Acute respiratory failure with hypoxia; R65.21 Severe sepsis with septic shock; I21.4 Non-ST elevation (NSTEMI) myocardial infarction; R57.0 Cardiogenic shock; I50.23 Acute on chronic systolic (congestive) heart failure; K72.00 Acute and subacute hepatic failure without coma; G92.9 Unspecified toxic encephalopathy; N17.9 Acute kidney failure, unspecified; E87.2 Acidosis; I13.0 Hypertensive heart and chronic kidney disease with heart failure and stage 1 through stage 4 chronic kidney disease, or unspecified chronic kidney disease; E44.0 Moderate protein-calorie malnutrition; N18.30 Chronic kidney disease, stage 3 unspecified; E11.22 Type 2 diabetes mellitus with diabetic chronic kidney disease; E87.5 Hyperkalemia; D64.9 Anemia, unspecified; K21.9 Gastro-esophageal reflux disease without esophagitis; E83.39 Other disorders of phosphorus metabolism; E78.5 Hyperlipidemia, unspecified; E83.51 Hypocalcemia; I25.10 Atherosclerotic heart disease of native coronary artery without angina pectoris; R79.89 Other specified abnormal findings of blood chemistry; Z79.899 Other long term (current) drug therapy; Z86.73 Personal history of transient ischemic attack (TIA), and cerebral infarction without residual deficits; Z79.01 Long term (current) use of anticoagulants; Z68.28 Body mass index [BMI] 28.0-28.9, adult
CPT/HCPCS: 31500; 36415; 71045; 71250; 74176; 80048; 80053; 80061; 80076; 81003; 81015; 82550; 82728; 82805; 82947; 83605; 83690; 83735; 83880; 84100; 84132; 84145; 84439; 84443; 84484; 85025; 85379; 85610; 85730; 86140; 87040; 87205; 93005; 93306; 94002; 94003; 99291; 99292; J0330; J0692; J1644; J2250; J2543; J2704; J2930; J3370; J7030; J7040; J7042; J7060; U0003